=== PATIENT | female | born 1935 | race Caucasian/White ===

== ENCOUNTER 2019-07-21 17:44 | Observation (INO) | payer MEDICARE, OTHER, SELFPAY ==
[2019-07-21] VITALS (9 sets, daily range): BP systolic 122–152; BP diastolic 60–80; PULSE 73–95; RESP 18–20; TEMP 36.4–37; O2SAT 88–97; BMI 53.1
--- NOTE | 2019-07-21 17:45 | XR_ITS ---
WS: [id number] PORTABLE CHEST HISTORY: sob COMPARISON: 11/29/2017 Increased consolidation at the LEFT lung base. Pleural thickening and scarring has been noted on prio r studies. Minimal blunting of the LEFT costophrenic angle. Cardiac size: Heart size appears enlarged but similar to the prior study. Mediastinum/Aorta: Hiatal hernia best seen on the prior studies. No osseous abnormality seen. XR/XR chest 1V portable [id number] IMPRESSION: Stable pleural blunting or pleural thickening at the LEFT costophrenic angle wi th atelectasis. No interval change since 11/29/2017.
--- NOTE | 2019-07-21 18:27 | PC.NURSE ---
PLACED ON 02 NC 2 LPM, NON PRODUCTIVE COUGH
[2019-07-21 18:41] LABS: Basophils # 0.1 10^3/uL (0.0-0.1); Basophils % 1.2 %; Eosinophils # 0.5 10^3/uL (0.0-0.8); Eosinophils % 5.2 %; Hematocrit 26.1 % (37.0-47.0); Lymphocytes # 1.9 10^3/uL (0.8-4.8); Mean Corpuscular HGB Conc 24.9 g/dL (30.0-36.0); Mean Corpuscular Hemoglobin 17.9 pg (28.0-34.0); Mean Corpuscular Volume 71.7 fL (81-99); Mean Platelet Volume 11.1 fL (7.4-10.4); Monocytes % 11.1 %; Neutrophils # 5.5 10^3/uL (1.8-7.7); Neutrophils % 61.1 %; Nucleated Red Blood Cells % 0.3 %; Platelet Count 287 10^3/cmm (130-400); Red Blood Count 3.64 10^6/uL (4.1-5.3); Red Cell Distribution Width 18.6 % (12.1-15.1); White Blood Count 9.1 10^3/uL (4.0-10.0)
[2019-07-21 18:53] LABS: Hemoglobin 6.5 g/dL (11.5-15.3)
--- NOTE | 2019-07-21 19:01 | PC.NURSE ---
REPORT GIVEN TO KAREN MCFARLANE
[2019-07-21 19:02] LABS: Troponin(5th) Baseline 21 ng/mL (0-10)
[2019-07-21 19:10] LABS: Alanine Aminotransferase 6 U/L (0-33); Albumin Level 3.7 g/dL (3.5-5.2); Alkaline Phosphatase 61 IU/L (35-105); Anion Gap 13.4 (5-19); Aspartate Amino Transferase 19 U/L (0-32); Blood Urea Nitrogen 17 mg/dL (8-23); Calcium 8.4 mg/dL (8.5-10.5); Carbon Dioxide 29 mmol/L (22-29); Chloride 102 mmol/L (98-107); Globulin 2.9 g/dL (1.3-4.6); Glucose 128 mg/dL (65-115); NT Pro B Type Natriuretic Pept 755 pg/mL (0-450); Osmolality Calculated 288 mOsm/kg (285-295); Potassium 4.4 mmol/L (3.5-5.1); Sodium 140 mmol/L (136-145); Total Bilirubin 0.3 mg/dL (0.15-1.2); Total Protein 6.6 g/dL (6.6-8.7)
--- NOTE | 2019-07-21 19:24 | PC.NURSE ---
Assumed Pt. care. Pt. without complaint. Without distress. VSS.
--- NOTE | 2019-07-21 19:28 | PM.HP ---
Providers/Chief Complaint Primary Care Provider: HIM Provider Chief Complaint: sent by dr ivan for transfusion History of Present Illness Nenita Salomon is a 83 year old female who does not have significant past medical history comes in with chief complaint of dyspnea on exertion. Patient is stating that for last 2 to 3 weeks she has been experiencing dyspnea, she is experiencing dyspnea mostly on exertion, she is endorsing orthopnea, PND, weight gain, 5 to 10 pound increase in weight, she is attributing weight gain to her eating habits. She does not endorse any night sweats, unintentional weight loss, fever, hemoptysis, black tarry stool, vaginal or fresh bleed per rectum or hematemesis. She does not carry any diagnosis of GI cancer, splenomegaly. About 20 to 25 years ago she had stomach ulcer and biopsy was benign. She does not take NSAIDs or aspirin daily basis. She denies any thyroid abnormality, cold intolerance, constipation, she is stating that her feet are always swollen and she wears compression stockings. She went to her PCP for similar complaint who requested her to come to the ER for further evaluation. Diagnostics in the ER revealed acute onset of anemia hemoglobin 6.5, previous records revealed hemoglobin of 12.7 Microcytic anemia Rectal exam did not reveal occult blood Hemodynamically she is stable Review of Systems Const: Reports: chills, body aches, change in appetite, change in weight and fatigue; Denies: fever(s) Eyes: Denies: change in vision ENMT: Denies: throat pain Card: Reports: swelling of feet/ankles, dyspnea on exertion and orthopnea; Denies: chest pain Resp: Reports: dyspnea GI: Denies: abdominal pain or nausea : Denies: flank pain Musc: Denies: neck pain Skin/Breast: Denies: rash Neuro: Denies: headache(s) Psych: Denies: anxiety Endo: Denies: polyuria Oni/Lymph: Denies: easy bruising All/Imm: Denies: urticaria Medications/Allergies Home Medications Medication Instructions Recorded Confirmed Last Taken Type famotidine [Pepcid] See Rx Instructions .ROUTE 07/21/19 07/21/19 07/19/19 History .COMPLEX PRN Allergies Allergy/AdvReac Type Severity Reaction Status Date / Time No Known Allergies Allergy Verified 07/21/19 18:58 PFSH Acute PFSH: Medical History Cardiomegaly Hiatal hernia Lymphedema Nephrolithiasis Surgical History H/O: hysterectomy History of appendectomy History of carpal tunnel surgery Hx of cholecystectomy S/P knee replacement Family History Denies family history of Hyperlipidemia Lung disease Hypertension Social History Smoking and tobacco status: never smoked Alcohol intake: never Substance/Drug Use: never Household members: family Housing: House Vitals/I&O/Wt Last Vital Signs Temp 98.5 F 07/21/19 18:21 Pulse 80 07/21/19 18:58 Resp 18 07/21/19 18:58 BP 140/65 07/21/19 18:58 Pulse Ox 95 07/21/19 18:58 Weight last 48 hrs Weight 140.614 kg Physical Exam Narrative: EXAM NARRATIVE: Head to toe examination Morbidly obese female Sitting comfortable in her bed Conjunctival pallor positive No active restaurant distress Breathing comfortably, mild crackles at the base of lung however no active wheezing S1, S2, active signs of heart failure Hard to assess her JVD Bilateral lower extremity nonpitting edema Abdomen soft nontender, nondistended, unable to palpate for organomegaly, bowel sound present Appropriate mood and affect GCS 15 Neurologically nonfocal exam Pertinent negative Rectal exam negative for occult blood Data : 07/21/19 18:22 07/21/19 18:22 A&P Assessment and plan (1) New onset of congestive heart failure: Status: Acute (2) Dyspnea on minimal exertion: Status: Acute (3) Microcytic anemia: Status: Acute (4) Morbid obesity: Status: Acute Additional A&P Information Acute microcytic anemia with unknown etiology No organomegaly, no active GI bleed, no source of active blood loss We will check iron panel, B12 level, TSH, Charles test, reticulocyte count Start iron supplementation because of microcytic anemia, no thrombocytopenia or leukopenia noted Transfuse 3 PRBC Patient does endorse a history of stomach ulcer in the past, biopsy was benign as per the patient She will most likely need outpatient EGD and colonoscopy on elective basis New onset CHF most likely due to underlying sleep apnea and active anemia Echo in the morning Would use Lasix 20 mg to avoid decreasing her blood pressure too much because of active anemia Follow-up with TSH No active murmur, no ischemic or infarctive changes, troponin 21 Morbid obesity Patient is attributing her weight gain to excessive eating Counseled on benefits of appropriate BMI Full code DVT prophylaxis: SCDs, would avoid using anticoagulation because of active anemia Cardiac diet Attestations Medical Necessity Statement*: Anticipating discharge in less than 48 hours currently need hospital stay for blood transfusion and management of CHF new onset Time Spent in Patient Care: 50 Coding Level of Care Code Acute 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
--- NOTE | 2019-07-21 19:43 | ED_ITS ---
HPI - SOB/Dyspnea General: Chief Complaint: Shortness of Breath/Dyspnea Stated Complaint: sent by dr ivan for transfusion Time Seen by Provider: 07/21/19 17:56 History of Present Illness: HPI Narrative: Nenita is a very nice 83-year-old female who comes in complaining of dyspnea on exertion. She has an occasional cough but states this is not bothersome. Denies any fevers or chills. She denies any chest pain. She states even the most minimal exertion makes her symptoms worse. She denies any leg pain or swelling. Denies any blood in her stools or black tarry stools. She denies any nausea vomiting or abdominal pain. Associated symptoms: Deny abdominal pain, chest congestion, chest pain, diaphoresis, dizziness, extremity pain, fever(s), hemoptysis, lightheadedness, nausea, orthopnea, palpitations, polydipsia, polyuria, syncope or vomiting Review of Systems Const: Denies: fever(s), chills, body aches, fatigue, malaise, night sweats or diaphoresis Eyes: Denies: change in vision, blurry vision or blind spots ENMT: Denies: throat pain, odynophagia, hoarseness, ear or mastoid pain, ear discharge, change in hearing or nasal discharge Card: Denies: chest pain, palpitations, irregular heart rhythm, lightheadedness, syncope, pre-syncope, dyspnea on exertion or orthopnea Resp: Reports: dyspnea; Denies: productive cough, non-productive cough, wheezing, hemoptysis or chest congestion GI: Denies: abdominal pain, nausea, vomiting, hematemesis, coffee ground emesis, heartburn, diarrhea, constipation, GI cramping, hematochezia or melena : Denies: flank pain, dysuria, urinary frequency, urinary urgency, oliguria, urinary incontinence or hematuria Musc: Denies: neck pain, back pain, extremity pain, extremity swelling, joint pain, joint swelling, joint redness, joint warmth or joint stiffness Skin/Breast: Denies: rash, pruritus, erythema, skin tenderness or jaundice Neuro: Denies: headache(s), numbness in extremities, weakness in extremities, sensory changes, lack of coordination, difficulty walking, dizziness, vertigo, confusion or Slurred speech present Endo: Denies: polyuria, polydipsia, tired all the time, cold intolerance, excessive sweating, flushing, hot flashes or heat intolerance Oni/Lymph: Denies: easy bruising, easy bleeding, petechiae, purpura or enlarged lymph nodes All/Imm: Denies: urticaria, throat swelling, tongue swelling, facial swelling or acute wheezing PFSH ED PFSH: Medical History Cardiomegaly Hiatal hernia Lymphedema Nephrolithiasis Surgical History H/O: hysterectomy History of appendectomy History of carpal tunnel surgery Hx of cholecystectomy S/P knee replacement Family History Denies family history of Hyperlipidemia Lung disease Hypertension Social History Smoking and tobacco status: never smoked Alcohol intake: never Substance/Drug Use: never Household members: family Housing: House Physical Exam Const: COMMON NORMALS: no acute distress, patient oriented x3, no limitations, healthy appearing and well nourished EXAM LIMITATIONS: no altered mental status GENERAL APPEARANCE: cooperative, well kempt and well developed HENMT: COMMON NORMALS: normocephalic, atraumatic, hearing grossly normal bilaterally, external ears normal, EAC's normal, Normal external nose present and moist oral mucous membranes HEAD & SCALP: normal to inspection, normocephalic and atraumatic FACE & SINUS: normal facial exam and face symmetric NOSE: Normal external nose present and Normal nares present EXTERNAL EAR: Yes external ears normal EXTERNAL AUDITORY CANAL: EAC's normal MOUTH: Normal oral and palatal mucosa present, lip normal and tongue normal Eye: COMMON NORMALS: Equal, round and reactive pupils present, EOMs intact bilaterally, conjunctivae normal and no scleral icterus GENERAL EYE: appearance normal, both eyes and all related structures ALIGNMENT: Yes alignment normal PERIORBITAL: periorbital findings normal EYELID: eyelids normal CONJUNCTIVA: Yes conjunctivae normal SCLERA: sclerae normal PUPIL: Yes Equal, round and reactive pupils present Neck/C-Spine: COMMON NORMALS: full ROM, no lymphadenopathy, supple, no meningeal signs and no JVD GENERAL: Yes normal visual inspection and Yes trachea midline CERVICAL SPINE: Yes cervical ROM normal Chest: COMMONS NORMALS: normal inspection of the chest and normal palpation of entire chest wall Resp: COMMON NORMALS: normal respiratory effort, No retractions, No use of ac cessory muscles and clear to auscultation bilaterally EFFORT & INSPECTION: Yes able to speak in complete sentences AUSCULTATION: clear to auscultation bilaterally, no crackles, no rales, no rhonchi and no wheezes Cardio: COMMON NORMALS: no JVD, regular rate, regular rhythm, S1 normal heart sound present, S2 normal heart sound present, No gallops present (Cardio), No clicks present (Cardio), No murmurs present (Cardio) and No rub (Cardio) RATE: regular rate RHYTHM: regular rhythm HEART SOUNDS: S1 normal heart sound present, S2 normal heart sound present, no click, no gallops, no murmurs and no rubs GI: COMMON NORMALS: Soft to palpation, non-tender, No hepatosplenomegaly present and no masses PALPATION: Yes Soft to palpation, No Tenderness to palpation present (GI), No Guarding due to palpation present (GI), No Rigid due to palpation, Yes No hepatosplenomegaly present, No Hernia present, No Palpable mass present and No Pulsatile mass present RECTAL EXAM: normal sphincter tone and heme negative stool : COMMON NORMALS: Yes no CVA tenderness BLADDER/KIDNEY EXAM: Yes no CVA tenderness EXTERNAL FEMALE EXAM: No Hernia present Back/Pelvis: COMMON NORMALS: no CVA tenderness, thoracic and lumbar spine normal to inspection, no thoracic nor lumbar tenderness and thoraco-lumbar ROM normal Extremity: COMMON NORMALS: normal to inspection, full ROM, capillary refill normal, no joint enlargement, no clubbing, cyanosis or edema and no calf tenderness Neuro: COMMON NORMALS: patient oriented x3, CN's II-XII intact bilaterally, moves all extremities, no focal motor deficits and no sensory deficits noted MENINGEAL SIGNS: Yes no meningeal signs SPEECH: speech normal Psych: COMMON NORMALS: mental status grossly normal, Normal thought process present, cooperative, normal affect, speech normal and activity/motor behavior normal APPEARANCE: Yes well kempt SPEECH: Yes normal speech THOUGHT PROCESS: Normal thought process present Skin: COMMON NORMALS: no rashes or lesions noted, turgor normal, no jaundice, no petechiae and no mottling GENERAL SKIN EXAM: no rashes or lesions noted and turgor normal Course Vital Signs: Vital signs: Vital Signs Temperature 98.5 F 07/21/19 18:21 Pulse Rate 78 07/21/19 20:40 Respiratory Rate 18 07/21/19 20:40 Blood Pressure 145/73 07/21/19 20:40 Pulse Oximetry 96 07/21/19 20:40 MDM - SOB/Dyspnea MDM Narrative: Medical decision making narrative: Ms. Bourgeois is a nice 83-year-old female who comes in with dyspnea on exertion. She is found to be anemic with a hemoglobin of 6.5. I think this is the likely etiology for this. She is Hemoccult negative here. She will need further anemia work-up. The case was reviewed with Dr. Vizcarra and he will evaluate further on the inpatient basis. He agrees with transfusion at this time. Lab Data: Attestation: I reviewed the patient's lab results. Labs: Lab Results 07/21/19 07/21/19 07/21/19 Range/Units 18:22 18:22 18:22 WBC 9.1 (4.0-10.0) 10^3/ uL RBC 3.64 L (4.1-5.3) 10^6/u L Hgb 6.5 L* (11.5-15.3) g/dL Hct 26.1 L (37.0-47.0) % MCV 71.7 L (81-99) fL MCH 17.9 L (28.0-34.0) pg MCHC 24.9 L (30.0-36.0) g/dL RDW 18.6 H (12.1-15.1) % Plt Count 287 (130-400) 10^3/c mm MPV 11.1 H (7.4-10.4) fL Neut % (Auto) 61.1 % Lymph % (Auto) 21.0 % Whiteside % (Auto) 11.1 % Eos % (Auto) 5.2 % Baso % (Auto) 1.2 % Neut # (Auto) 5.5 (1.8-7.7) 10^3/u L Lymph # (Auto) 1.9 (0.8-4.8) 10^3/u L Whiteside # (Auto) 1.0 H (0.2-0.9) 10^3/u L Eos # (Auto) 0.5 (0.0-0.8) 10^3/u L Baso # (Auto) 0.1 (0.0-0.1) 10^3/u L Nucleated RBC % (a uto) 0.3 % Nucleated RBCs # 0.0 /100WBC PT 14.50 H (10.5-13.3) SECO NDS INR 1.10 (0.8-1.2) Sodium 140 (136-145) mmol/L Potassium 4.4 (3.5-5.1) mmol/L Chloride 102 (98-107) mmol/L Carbon Dioxide 29 (22-29) mmol/L Anion Gap 13.4 (5-19) BUN 17 (8-23) mg/dL Creatinine 0.5 (0.5-0.9) mg/dL Glucose 128 H (65-115) mg/dL Calculated Osmolal ity 288 (285-295) mOsm/k g Calcium 8.4 L (8.5-10.5) mg/dL Total Bilirubin 0.3 (0.15-1.2) mg/dL AST 19 (0-32) U/L ALT 6 (0-33) U/L Alkaline Phosphata se 61 (35-105) IU/L Troponin T Baselin e (0-10) ng/mL NT-Pro-B Natriuret Pep 755 H (0-450) pg/mL Total Protein 6.6 (6.6-8.7) g/dL Albumin 3.7 (3.5-5.2) g/dL Globulin 2.9 (1.3-4.6) g/dL Blood Type Rho(D) Type Antibody Screen Crossmatch 07/21/19 07/21/19 Range/Units 18:22 18:27 WBC (4.0-10.0) 10^3/ uL RBC (4.1-5.3) 10^6/u L Hgb (11.5-15.3) g/dL Hct (37.0-47.0) % MCV (81-99) fL MCH (28.0-34.0) pg MCHC (30.0-36.0) g/dL RDW (12.1-15.1) % Plt Count (130-400) 10^3/c mm MPV (7.4-10.4) fL Neut % (Auto) % Lymph % (Auto) % Whiteside % (Auto) % Eos % (Auto) % Baso % (Auto) % Neut # (Auto) (1.8-7.7) 10^3/u L Lymph # (Auto) (0.8-4.8) 10^3/u L Whiteside # (Auto) (0.2-0.9) 10^3/u L Eos # (Auto) (0.0-0.8) 10^3/u L Baso # (Auto) (0.0-0.1) 10^3/u L Nucleated RBC % (a uto) % Nucleated RBCs # /100WBC PT (10.5-13.3) SECO NDS INR (0.8-1.2) Sodium (136-145) mmol/L Potassium (3.5-5.1) mmol/L Chloride (98-107) mmol/L Carbon Dioxide (22-29) mmol/L Anion Gap (5-19) BUN (8-23) mg/dL Creatinine (0.5-0.9) mg/dL Glucose (65-115) mg/dL Calculated Osmolal ity (285-295) mOsm/k g Calcium (8.5-10.5) mg/dL Total Bilirubin (0.15-1.2) mg/dL AST (0-32) U/L ALT (0-33) U/L Alkaline Phosphata se (35-105) IU/L Troponin T Baselin e 21 H (0-10) ng/mL NT-Pro-B Natriuret Pep (0-450) pg/mL Total Protein (6.6-8.7) g/dL Albumin (3.5-5.2) g/dL Globulin (1.3-4.6) g/dL Blood Type O Positive Rho(D) Type Positive Antibody Screen Negative Crossmatch See Detail Imaging Data^: CXR: My impression: Cardiomegaly with possible left-sided pleural effusion EKG Data^: EKG 1: Attestation: I personally reviewed and interpreted this EKG as follows: EKG Interpretation Date: 07/21/19 EKG interpretation time: 18:23 Interpretation: Normal sinus rhythm at 79 beats a minute, incomplete right bundle branch block, normal intervals, no acute ST or T wave changes. Discharge Plan Discharge Patient Disposition: Placed in Observation Admit Provider: Srini Vizcarra Clinical Impression: Microcytic anemia, Dyspnea on minimal exertion, Elevation of cardiac enzymes Condition: Stable Referrals: [facility] [Other] Discharge Date/Time: 07/21/19 20:47 Coding Level of Care Code ED Records Management Assistant for Chg Fwd Exam Comprehensive
--- NOTE | 2019-07-21 19:45 | ECG_ITS ---
Measurements Intervals [place] Rate: 79 P: 106 NM: 148 QRS: 20 QRSD: 106 T: 29 QT: 396 QTc: 455 SINUS RHYTHM INCOMPLETE RIGHT BUNDLE BRANCH BLOCK [90+ ms QRS DURATION, TERMINAL R IN V1/V2, 40+ ms S IN I/aVL/V4/V5/V6] No previous ECG available for comparison Electronically Signed On 07-21-2019 22:07:54 CDT by Lisa Dickson M.D. [email or web address]
[2019-07-21 20:12] LABS: Troponin 5 2HR 19.31 ng/mL (0-10)
[2019-07-21 20:14] LABS: Troponin 5 2HR Delta -1.69 ABS# (0-10)
[2019-07-21] MEDS: sodium chloride 0.9% (100 ml) 100 ML (21:57)
[2019-07-21] MEDS: pantoprazole DR 40 mg Tablet PO (22:01)
[2019-07-21 22:02] LABS: Thyroid Stimulating Hormone 1.89 uIU/mL (0.27-4.20)
[2019-07-21 22:46] LABS: Ferritin 5 ng/mL (15-150); Iron 12 ug/dL (37-145)
[2019-07-21 23:01] LABS: Vitamin B12 555 pg/mL (232-1245)
[2019-07-21 23:26] LABS: Lactate Dehydrogenase 333 U/L (135-214); Percent Saturation 2.4 % (20-50); Total Iron Binding Capacity 484 mcg/dl; Unsaturated Iron Binding 472 ug/dL (112-347)
--- NOTE | 2019-07-21 23:45 | ECG_ITS ---
Measurements Intervals [place] Rate: 79 P: 96 NC: 149 QRS: 12 QRSD: 105 T: 30 QT: 385 QTc: 443 SINUS RHYTHM INCOMPLETE RIGHT BUNDLE BRANCH BLOCK [90+ ms QRS DURATION, TERMINAL R IN V1/V2, 40+ ms S IN I/aVL/V4/V5/V6] No previous ECG available for comparison Electronically Signed On 07-21-2019 22:08:17 CDT by Lisa Dickson M.D. [email or web address]
[2019-07-22] VITALS (14 sets, daily range): BP systolic 122–144; BP diastolic 68–84; PULSE 72–97; RESP 16–20; TEMP 36.6–36.9; O2SAT 18–98
[2019-07-22] MEDS: FUROsemide 10 mg/mL SDV 4mL 40 MG IVP ×2 (00:20→09:39)
[2019-07-22 05:50] LABS: Basophils # 0.1 10^3/uL (0.0-0.1); Basophils % 1.5 %; Eosinophils # 0.4 10^3/uL (0.0-0.8); Eosinophils % 4.7 %; Hematocrit 26.8 % (37.0-47.0); Hemoglobin 6.9 g/dL (11.5-15.3); Lymphocytes # 1.6 10^3/uL (0.8-4.8); Lymphocytes % 17.7 %; Mean Corpuscular HGB Conc 25.7 g/dL (30.0-36.0); Mean Corpuscular Hemoglobin 18.9 pg (28.0-34.0); Mean Corpuscular Volume 73.2 fL (81-99); Mean Platelet Volume 11.5 fL (7.4-10.4); Monocytes # 1.2 10^3/uL (0.2-0.9); Monocytes % 13.4 %; Neutrophils # 5.5 10^3/uL (1.8-7.7); Nucleated Red Blood Cells % 0.4 %; Platelet Count 251 10^3/cmm (130-400); Red Blood Count 3.66 10^6/uL (4.1-5.3); Red Cell Distribution Width 19.7 % (12.1-15.1); White Blood Count 8.9 10^3/uL (4.0-10.0)
[2019-07-22 06:10] LABS: Anion Gap 11.5 (5-19); Blood Urea Nitrogen 17 mg/dL (8-23); Calcium 8.3 mg/dL (8.5-10.5); Carbon Dioxide 32 mmol/L (22-29); Chloride 102 mmol/L (98-107); Glucose 120 mg/dL (65-115); Osmolality Calculated 290 mOsm/kg (285-295); Potassium 4.5 mmol/L (3.5-5.1); Sodium 141 mmol/L (136-145)
[2019-07-22 06:12] LABS: Slide Review Slide Review Perform
--- NOTE | 2019-07-22 07:00 | USCV_ITS ---
Salomon [place] Age: 83 Gender: F : 1935 Exam Date: 07/22/2019 06:47 Ordering Phys: Srini Vizcarra MD Technologist: Duane Weston Exam Location: [facility] – [place] Indication: CHF BP: 132 / 75 HR: 74 Rhythm: Sinus Technical Quality: Suboptimal MEASUREMENTS (Male / Female) Normal Values 2D ECHO LV Diastolic Diameter PLAX 4.5 cm 4.2 - 5.9 / 3.9 - 5.3 cm LV Systolic Diameter PLAX 3.0 cm IVS Diastolic Thickness 1.0 cm 0.6 - 1.0 / 0.6 - 0.9 cm IVS Systolic Thickness 1.2 cm LVPW Diastolic Thickness 1.5 cm 0.6 - 1.0 / 0.6 - 0.9 cm LVPW Systolic Thickness 1.5 cm LVOT Diameter 2.0 cm LV Ejection Fraction 2D Teich 63.0 % LV Ejection Fraction MOD 2C 60.6 % LV Ejection Fraction 2C AL 60.5 % LA Diameter 5.3 cm LA Width 4.5 cm LA Height 6.1 cm Aorta at Sinotubular Diameter 3.1 cm M-MODE LV Diastolic Diameter MM 4.6 cm 4.2 - 5.9 / 3.9 - 5.3 cm LV Systolic Diameter MM 3.5 cm LV Ejection Fraction MM Teich 47.8 % IVS Diastolic Thickness MM 1.2 cm 0.6 - 1.0 / 0.6 - 0.9 cm IVS Systolic Thickness MM 1.8 cm LVPW Diastolic Thickness MM 1.3 cm 0.6 - 1.0 / 0.6 - 0.9 cm LVPW Systolic Thickness MM 1.8 cm RV Diastolic Diameter MM 2.8 cm Aortic Annulus Diameter 3.3 cm LA Ao Ratio MM 1.6 MV E Point Septal Separation 0.8 cm DOPPLER AV Peak Velocity 177.0 cm/s LVOT Peak Velocity 111.0 cm/s AV Area Cont Eq vti 2.0 cm squared AV Area Cont Eq pk 2.0 cm squared MV Area PHT 5.0 cm squared Mitral E to A Ratio 1.0 MV E' Velocity 10.0 cm/s Mitral E to MV E' Ratio 10.2 Mitral E to LV E' Lateral Ratio 10.7 Mitral E to LV E' Septal Ratio 9.7 TR Peak Velocity 176.0 cm/s TR Peak Gradient 12.4 mmHg TV Peak E Velocity 90.0 cm/s Right Atrial Pressure 3.0 mmHg Pulmonary Artery Systolic Pressu 15.4 mmHg PV Peak Velocity 118.0 cm/s FINDINGS Left Ventricle Normal left ventricular size, systolic function and wall thickness, with no regional wall motion abnormalities. Grade II/IV diastolic dysfunction, moderately elevated filling pressures. Left ventricular ejection fraction is estimated at 65 %. Right Ventricle Normal right ventricular size and systolic function. Normal right ventricular systolic pressure. Right Atrium Moderately increased right atrial size. Left Atrium Moderately increased left atrial size. Mitral Valve Structurally normal mitral valve. Mild mitral valve regurgitation. Aortic Valve Structurally normal aortic valve without significant sclerosis or stenosis. There is no aortic regurgitation. Tricuspid Valve Structurally normal tricuspid valve. Pulmonic Valve Pulmonic valve not well visualized. Pericardium Normal pericardium without effusion. Aorta Normal ascending aorta dimension. CONCLUSIONS Normal left ventricular size, systolic function and wall thickness, with no regional wall motion abnormalities. Grade II/IV diastolic dysfunction, moderately elevated filling pressures. Left ventricular ejection fraction is estimated at 65 %. Moderately increased right atrial size. Moderately increased left atrial size. Structurally normal mitral valve. Mild mitral valve regurgitation. There are no prior echocardiogram studies to compare. Dr. Dalton Pereyra MD (Electronically Signed) Final Date: 22 Jul 2019 09:23 S
[2019-07-22] MEDS: iron polysaccharide complex 150 mg Capsule PO (09:39)
[2019-07-22] MEDS: sodium chloride 0.9% (100 ml) 100 ML 50 ML (09:39)
--- NOTE | 2019-07-22 10:34 | PC.CHAP ---
Pastoral Care Encounter/Spiritual Assessment Type of Contact [] Declined rn field case manager visit [] Patient/Family/Request visit [] Outpatient visit [] Follow-up visit [] Physician referral [] Code/Alert [x] Routine visit [] Staff referral [] Actively dying [] Patient sleeping [] Family support [] [] Out of room [] Palliative care [] [x] Receiving care in room [] Pre-surgical visit [] Trauma [] Long length of stay [] ICU visit [] Other: Relational/Emotional Strength [] Patient feels connected with others/family/visitors/staff [] Distress [] Loneliness/isolation [] Abandonment Spirituality of Patient [] Person of Thelma [] Attends Anglican of their Thelma [] Believes in Prayer [] Reads Bible or Restorationist materials [] There are Spiritual issues to be addressed Wwe Wrestler Interventions [] Prayer [] Active listening [] Non-anxious presence [] Spiritual/emotional support [] Crisis/trauma care [] Spiritual counseling [] Bereavement support [] Provided bereavement packet [] Provided Bible/devotional materials [] Provided toy/stuffed animal, coloring book to patient or family member [] Provided Communion [] Anointing/[place] [] Salvation [x] Completed spiritual assessment [] Other: Impact on Illness or Injury [] Angry [] Fearful [] Anxious [] Often cries [] Exhaustion [] Unable to work [] Unable to attend spiritism [] Unable to walk/stand [] Unable to read [] Unable to drive [] Unable to eat/drink [] Unable to sleep [] Unable to be with family [] Patient intubated [] Other: Summary Time spent with patient
[2019-07-22 14:59] LABS: Hematocrit 30.4 % (37.0-47.0); Hemoglobin 8.3 g/dL (11.5-15.3)
--- NOTE | 2019-07-22 15:17 | P.DS_ITS ---
Discharge Providers Date of Admission: 07/21/19 19:30 Date of Discharge: July 22, 2019 Attending Provider at Admission: Srini Vizcarra MD Attending Provider at Discharge: Yobani Bose MD Primary Care Provider: LINETTE Provider Diagnoses at Discharge Discharge Diagnosis (1) New onset of congestive heart failure: Status: Acute Problem details: On room air. Reports her extremity edema is chronic. Will initiate Lasix 20 mg on discharge. (2) Dyspnea on minimal exertion: Status: Acute (3) Microcytic anemia: Status: Acute Problem details: Transfused 2 units of packed red blood cells while in the hospital. Discharge hemoglobin is 8.3 (4) Morbid obesity: Status: Acute Reason for Visit Reason for Visit: Reason For Visit: sent by dr ivan for transfusion Hospital Course Hospital Course: Nenita is an 83-year-old white female presenting to the hospital with dyspnea on exertion, referred by her primary care provider for significantly low hemoglobin. She was also short of breath and exam was concerning for congestive heart failure. Stool Hemoccult in the emergency department was negative. Further studies indicated significant iron deficiency anemia. Initial hemoglobin 6.5. She was diuresed. She was transfused 2 units of packed red blood cells. An echocardiogram was performed which demonstrated diastolic dysfunction, normal EF, no significant valvular abnormalities. Following transfusion she felt much improved. She was able to ambulate a short distance without significant shortness of breath. She reported she has some chronic shortness of breath which is currently at baseline. She was discharged home, for further follow-up with her primary care provider regarding her anemia. Hemoglobin following transfusion was 8.3. Physical Exam Narrative: EXAM NARRATIVE: General exam no apparent distress Cardiovascular regular rate and rhythm without murmur Lungs clear Abdomen is soft with positive bowel sounds Extremities 1+ edema bilaterally Discharge Data Data Completed and Pending: Completed Studies During Hospitalization Category Date Time Status XR chest 1V quirino ble 23153 Urgent Exams 07/21/19 17:45 Completed CV echo complete* [id number] Routine Ultrasound 07/22/19 07:00 Completed Pending at discharge Category Date Time Status Immunochemical Fe karl OCB Routine Lab 07/21/19 21:30 Uncollected Labs from last 24 hours 07/22/19 07/22/19 07/22/19 14:50 05: 05:20 WBC 8.9 RBC 3.66 L Hgb 8.3 L 6.9 L Hct 30.4 L 26.8 L MCV 73.2 L MCH 18.9 L MCHC 25.7 L RDW 19.7 H Plt Count 251 MPV 11.5 H Neut % (Auto) 62.0 Lymph % (Auto) 17.7 Lawrence % (Auto) 13.4 Eos % (Auto) 4.7 Baso % (Auto) 1.5 Reticulocyte % (Au to) Neut # (Auto) 5.5 Lymph # (Auto) 1.6 Lawrence # (Auto) 1.2 H Eos # (Auto) 0.4 Baso # (Auto) 0.1 Nucleated RBC % (a uto) 0.4 Nucleated RBCs # 0.0 PT INR Sodium 141 Potassium 4.5 Chloride 102 Carbon Dioxide 32 H Anion Gap 11.5 BUN 17 Creatinine 0.5 Glucose 120 H Calculated Osmolal ity 290 Calcium 8.3 L Iron TIBC % Saturation Unsat Iron Binding Ferritin Total Bilirubin AST ALT Alkaline Phosphata se Lactate Dehydrogen ase Troponin T Baselin e Troponin T 120 Min [place] Delta Troponin T NT-Pro-B Natriuret Pep Total Protein Albumin Globulin Vitamin B12 TSH Blood Type Rho(D) Type Antibody Screen TONY, Poly Interpre t Crossmatch 07/21/19 07/21/19 07/21/19 19:47 19:47 18:27 WBC RBC Hgb Hct MCV MCH MCHC RDW Plt Count MPV Neut % (Auto) Lymph % (Auto) Lawrence % (Auto) Eos % (Auto) Baso % (Auto) Reticulocyte % (Au to) Neut # (Auto) Lymph # (Auto) Lawrence # (Auto) Eos # (Auto) Baso # (Auto) Nucleated RBC % (a uto) Nucleated RBCs # PT INR Sodium Potassium Chloride Carbon Dioxide Anion Gap BUN Creatinine Glucose Calculated Osmolal ity Calcium Iron 12 L TIBC 484 % Saturation 2.4 L Unsat Iron Binding 472 H Ferritin 5 L Total Bilirubin AST ALT Alkaline Phosphata se Lactate Dehydrogen ase 333 H Troponin T Baselin e Troponin T 120 Min point hope ira 19.31 H Delta Troponin T -1.69 L NT-Pro-B Natriuret Pep Total Protein Albumin Globulin Vitamin B12 555 TSH 1.89 Blood Type Rho(D) Type Antibody Screen TONY, Poly Interpre t Negative Crossmatch 07/21/19 07/21/19 07/21/19 18:27 18:22 18:22 WBC RBC Hgb Hct MCV MCH MCHC RDW Plt Count MPV Neut % (Auto) Lymph % (Auto) Lawrence % (Auto) Eos % (Auto) Baso % (Auto) Reticulocyte % (Au to) 2.1400 Neut # (Auto) Lymph # (Auto) Lawrence # (Auto) Eos # (Auto) Baso # (Auto) Nucleated RBC % (a uto) Nucleated RBCs # PT INR Sodium Potassium Chloride Carbon Dioxide Anion Gap BUN Creatinine Glucose Calculated Osmolal ity Calcium Iron TIBC % Saturation Unsat Iron Binding Ferritin Total Bilirubin AST ALT Alkaline Phosphata se Lactate Dehydrogen ase Troponin T Baselin e 21 H Troponin T 120 Min point hope ira Delta Troponin T NT-Pro-B Natriuret Pep Total Protein Albumin Globulin Vitamin B12 TSH Blood Type O Positive Rho(D) Type Positive Antibody Screen Negative TONY, Poly Interpre t Crossmatch See Detail 07/21/19 07/21/19 07/21/19 18:22 18:22 18:22 WBC 9.1 RBC 3.64 L Hgb 6.5 L* Hct 26.1 L MCV 71.7 L MCH 17.9 L MCHC 24.9 L RDW 18.6 H Plt Count 287 MPV 11.1 H Neut % (Auto) 61.1 Lymph % (Auto) 21.0 Lawrence % (Auto) 11.1 Eos % (Auto) 5.2 Baso % (Auto) 1.2 Reticulocyte % (Au to) Neut # (Auto) 5.5 Lymph # (Auto) 1.9 Lawrence # (Auto) 1.0 H Eos # (Auto) 0.5 Baso # (Auto) 0.1 Nucleated RBC % (a uto) 0.3 Nucleated RBCs # 0.0 PT 14.50 H INR 1.10 Sodium 140 Potassium 4.4 Chloride 102 Carbon Dioxide 29 Anion Gap 13.4 BUN 17 Creatinine 0.5 Glucose 128 H Calculated Osmolal ity 288 Calcium 8.4 L Iron TIBC % Saturation Unsat Iron Binding Ferritin Total Bilirubin 0.3 AST 19 ALT 6 Alkaline Phosphata se 61 Lactate Dehydrogen ase Troponin T Baselin e Troponin T 120 Min point [place]a Delta Troponin T NT-Pro-B Natriuret Pep 755 H Total Protein 6.6 Albumin 3.7 Globulin 2.9 Vitamin B12 TSH Blood Type Rho(D) Type Antibody Screen TONY, Poly Interpre t Crossmatch Vitals: Last Vital Signs Temp 98.0 F 07/22/19 12:30 Pulse 80 07/22/19 12:30 Resp 16 07/22/19 12:30 BP 132/72 07/22/19 12:30 Pulse Ox 95 07/22/19 12:30 Discharge Plan Discharge Patient Disposition: Home, Self-Care Condition: Stable Prescriptions: New furosemide [Lasix] 20 mg tablet 20 mg PO QAM Qty: 30 RF: 0 polysaccharide iron complex [Ferrex 150] 150 mg iron Capsule 150 mg PO DAILY Qty: 30 RF: 0 pantoprazole 40 mg Tablet,Delayed Release (Dr/Ec) 40 mg PO BID Qty: 60 RF: 0 Discontinued Pepcid 40 mg Tablet See Rx Instructions .ROUTE .COMPLEX PRN (Reason: STOMACH ISSUES) RF: 0 Discharge Orders: Discharge Order (Routine); Ordered 07/22/19 Ordered By: Yobani Bose Referrals: [facility] [Other] Estuardo Ivan MD [Physician] - 4-7 days Discharge Diet: Low Salt Discharge Activity: Increase activity as tolerated Activity Restrictions/Additional Instructions: Take all medicine as prescribed Follow-up 5 days with CBC and clinic visit with Dr. Ivan. Consideration of EGD and colonoscopy Discharge Attestations Time Spent in Discharge Care*: greater than 30 min Quality Metrics Clinical Quality Measures During this hospital stay, did patient experience: None Coding Level of Care Code Acute Lead Ios Developer for Corey Fwd Diagnoses New onset of congestive heart failure I50.9 Dyspnea on minimal exertion R06.00 Microcytic anemia D50.9 Morbid obesity E66.01
--- NOTE | 2019-07-22 16:52 | PC.NURSE ---
Discharge instructions reviewed with patient at this time. Patient verbalized understanding of follow up appointment. Patient is A&Ox3. Respirations even and non-labored on room air. IV removed intact. Patient wheel chaired to private car.
== END 2019-07-22 16:35 | disposition home or self-care (01) ==
LOC: ER 19:45 → MEDSURG 20:17
PROVIDERS: Emergency Medicine; Admitting Provider Internal Medicine; Emergency Provider Emergency Medicine; Visit Provider Internal Medicine
DX: I50.9 Heart failure, unspecified (principal); R06.00 Dyspnea, unspecified; D50.9 Iron deficiency anemia, unspecified; E66.01 Morbid (severe) obesity due to excess calories; Z68.43 Body mass index [BMI] 50.0-59.9, adult
CPT/HCPCS: 12345; 36415; 36430; 71045; 80048; 80053; 82607; 82728; 83540; 83550; 83615; 83880; 84443; 84484; 85014; 85018; 85025; 85045; 85610; 86850; 86880; 86900; 86920; 93005; 93306; 96375; 99283; 99285; G0378; J1940; P9016

== ENCOUNTER 2019-07-27 12:41 | Inpatient (IN) | payer MEDICARE, OTHER, SELFPAY ==
[2019-07-27] VITALS (28 sets, daily range): BP systolic 94–140; BP diastolic 56–77; PULSE 53–92; RESP 9–27; TEMP 36.7–36.9; O2SAT 81–100; BMI 51.5
--- NOTE | 2019-07-27 12:45 | XR_ITS ---
WS: [id number] XR chest 1V portable [id number] REASON FOR EXAM: sob FINDINGS: Alveolar infiltrate in the basilar portion of the right lower lung. There is cardiomegaly seen. There is no failure or pneumonia are pneumothorax. XR/XR chest 1V portable [id number] IMPRESSION: Nodular infiltrate right lung base Cardiomegaly
--- NOTE | 2019-07-27 12:45 | ECG_ITS ---
Measurements Intervals [place] Rate: 78 P: 102 MN: 155 QRS: -35 QRSD: 106 T: 28 QT: 375 QTc: 427 SINUS RHYTHM INDETERMINATE AXIS LOW QRS VOLTAGE IN PRECORDIAL LEADS [QRS DEFLECTION < 1.0 mV IN CHEST LEADS] INCOMPLETE RIGHT BUNDLE BRANCH BLOCK [90+ ms QRS DURATION, TERMINAL R IN V1/V2, 40+ ms S IN I/aVL/V4/V5/V6] POSSIBLE ANTERIOR MYOCARDIAL INFARCTION [30 ms Q WAVE IN V3/V4, OR R < 0.2 mV IN V4], OF INDETERMINATE AGE WARNING: DATA QUALITY MAY AFFECT INTERPRETATION Compared to ECG 07/27/2019 14:36:28 Indeterminate axis now present Left-axis deviation no longer present Myocardial infarct finding still present Electronically Signed On 07-28-2019 19:36:15 CDT by Srini Mata M.D. [email or web address]
--- NOTE | 2019-07-27 13:23 | ED_ITS ---
HPI - SOB/Dyspnea General: Chief Complaint: Shortness of Breath/Dyspnea Stated Complaint: abnormal labs Time Seen by Provider: 07/27/19 13:05 Source: patient Mode of arrival: ambulatory Limitations: no limitations History of Present Illness: HPI Narrative: 83-year-old female who was recently admitted for CHF exacerbation. Patient was discharged and followed up with Dr. Lara today. I spoke to Dr. Pedraza patient was very short of breath in his office was satting in the 70s. She is not on oxygen at home and was in the low 80s here on 2 L and had to increase her oxygen here. She states she has had worsening shortness of breath and weight gain since discharge. Patient was placed on furosemide. She denies any vomiting or diarrhea. Associated symptoms: Deny abdominal pain, chest pain, fever(s), nausea or vomiting Review of Systems Const: Denies: fever(s), chills, body aches or change in appetite Eyes: Denies: blurry vision or eye discomfort ENMT: Denies: throat pain or dental pain Card: Denies: chest pain Resp: Reports: dyspnea GI: Denies: abdominal pain, nausea, vomiting or diarrhea : Denies: dysuria Musc: Denies: neck pain or back pain Skin/Breast: Denies: rash Neuro: Denies: headache(s) Psych: Denies: depression Oni/Lymph: Denies: easy bruising All/Imm: Denies: urticaria PFSH ED PFSH: Medical History (Updated 07/27/19 @ 15:00 by Stefanie Wilkins MD) Cardiomegaly Hiatal hernia Lymphedema Nephrolithiasis Surgical History H/O: hysterectomy History of appendectomy History of carpal tunnel surgery Hx of cholecystectomy S/P knee replacement Family History Denies family history of Hyperlipidemia Lung disease Hypertension Social History Smoking and tobacco status: never smoked Alcohol intake: never Household members: family Housing: House Physical Exam Const: COMMON NORMALS: patient oriented x3 GENERAL APPEARANCE: in distress NUTRITIONAL APPEARANCE: obese HENMT: COMMON NORMALS: normocephalic and atraumatic HEAD & SCALP: normocephalic and atraumatic Eye: COMMON NORMALS: Equal, round and reactive pupils present and EOMs intact bilaterally PUPIL: Yes Equal, round and reactive pupils present Neck/C-Spine: COMMON NORMALS: full ROM and supple Chest: COMMONS NORMALS: normal inspection of the chest and normal palpation of entire chest wall Resp: EFFORT & INSPECTION: Yes tachypneic, Yes respiratory distress and Yes labored AUSCULTATION: rales Cardio: COMMON NORMALS: regular rate, regular rhythm and No murmurs present (Cardio) RATE: regular rate RHYTHM: regular rhythm GI: COMMON NORMALS: Normal to inspection, nondistended, normoactive bowel sounds present, Soft to palpation, non-tender and no masses PALPATION: Yes Soft to palpation Extremity: COMMON NORMALS: normal to inspection and full ROM Neuro: COMMON NORMALS: patient oriented x3, moves all extremities and no focal motor deficits Psych: COMMON NORMALS: mental status grossly normal, Normal thought process present and cooperative THOUGHT PROCESS: Normal thought process present Skin: COMMON NORMALS: no rashes or lesions noted and no wounds GENERAL SKIN EXAM: no rashes or lesions noted Course Vital Signs: Vital signs: Vital Signs Pulse Rate 74 07/27/19 13:48 Respiratory Rate 22 H 07/27/19 13:06 Blood Pressure 134/69 07/27/19 13:06 Pulse Oximetry 97 07/27/19 13:48 MDM - SOB/Dyspnea MDM Narrative: Medical decision making narrative: Patient presents here with CHF exacerbation with possible right lower lobe pneumonia. Patient is in severe distress and was placed on BiPAP. She is improving slightly on BiPAP I spoke to hospitalist and will admit to the ICU. Patient started on antibiotics for her possible pneumonia. She has no signs of sepsis or cardiac cause currently. She has no signs of pulmonary embolism. Lab Data: Labs: Lab Results 07/27/19 07/27/19 07/27/19 Range/Units 13:21 13:40 13:40 WBC 9.8 (4.0-10.0) 10^3/ uL RBC 4.10 (4.1-5.3) 10^6/u L Hgb 7.9 L (11.5-15.3) g/dL Hct 31.8 L (37.0-47.0) % MCV 77.6 L (81-99) fL MCH 19.3 L (28.0-34.0) pg MCHC 24.8 L (30.0-36.0) g/dL RDW 22.5 H (12.1-15.1) % Plt Count 279 (130-400) 10^3/c mm MPV 12.0 H (7.4-10.4) fL Neut % (Auto) 75.4 % Lymph % (Auto) 11.1 % Gregory % (Auto) 10.5 % Eos % (Auto) 1.0 % Baso % (Auto) 1.2 % Neut # (Auto) 7.4 (1.8-7.7) 10^3/u L Lymph # (Auto) 1.1 (0.8-4.8) 10^3/u L Gregory # (Auto) 1.0 H (0.2-0.9) 10^3/u L Eos # (Auto) 0.1 (0.0-0.8) 10^3/u L Baso # (Auto) 0.1 (0.0-0.1) 10^3/u L Nucleated RBC % (a uto) 1.2 % Nucleated RBCs # 0.1 /100WBC PT 15.80 H (10.5-13.3) SECO NDS INR 1.22 H (0.8-1.2) Specimen Type Arterial Sample Site Radial, right ABG pH 7.28 L (7.35-7.45) ABG pCO2 71.3 H* (35-45) mmHg ABG pO2 64.5 L (80.0-100.0) mmH g ABG HCO3 33.6 H (22-26) mmol/L ABG Base Excess 5.7 H (-2.0-2.0) mmol/ L Iban Test Pos Hematocrit 25.6 L (37-47) % Hgb O2 Saturation 88.9 L (95-100) % Carboxyhemoglobin 1.6 (0.4-20.1) %THgb Methemoglobin 0.3 L (0.4-1.5) % Total Hemoglobin 8.4 L (12-16) g/dL O2 Delivery Device Nc O2 Liters/Min 6.0 % FiO2 % Director Field Services ID [email or web address] Sodium (136-145) mmol/L Potassium (3.5-5.1) mmol/L Chloride (98-107) mmol/L Carbon Dioxide (22-29) mmol/L Anion Gap (5-19) BUN (8-23) mg/dL Creatinine (0.5-0.9) mg/dL Glucose (65-115) mg/dL Calculated Osmolal ity (285-295) mOsm/k g Calcium (8.5-10.5) mg/dL Total Bilirubin (0.15-1.2) mg/dL AST (0-32) U/L ALT (0-33) U/L Alkaline Phosphata se (35-105) IU/L Troponin T Baselin e (0-10) ng/mL NT-Pro-B Natriuret Pep (0-450) pg/mL Total Protein (6.6-8.7) g/dL Albumin (3.5-5.2) g/dL Globulin (1.3-4.6) g/dL 07/27/19 07/27/19 07/27/19 Range/Units 13:40 13:40 14:32 WBC (4.0-10.0) 10^3/ uL RBC (4.1-5.3) 10^6/u L Hgb (11.5-15.3) g/dL Hct (37.0-47.0) % MCV (81-99) fL MCH (28.0-34.0) pg MCHC (30.0-36.0) g/dL RDW (12.1-15.1) % Plt Count (130-400) 10^3/c mm MPV (7.4-10.4) fL Neut % (Auto) % Lymph % (Auto) % Gregory % (Auto) % Eos % (Auto) % Baso % (Auto) % Neut # (Auto) (1.8-7.7) 10^3/u L Lymph # (Auto) (0.8-4.8) 10^3/u L Gregory # (Auto) (0.2-0.9) 10^3/u L Eos # (Auto) (0.0-0.8) 10^3/u L Baso # (Auto) (0.0-0.1) 10^3/u L Nucleated RBC % (a uto) % Nucleated RBCs # /100WBC PT (10.5-13.3) SECO NDS INR (0.8-1.2) Specimen Type Arterial Sample Site Radial, left ABG pH 7.33 L (7.35-7.45) ABG pCO2 66.5 H* (35-45) mmHg ABG pO2 52.6 L (80.0-100.0) mmH g ABG HCO3 34.9 H (22-26) mmol/L ABG Base Excess 7.7 H (-2.0-2.0) mmol/ L Iban Test Pos Hematocrit 24.5 L (37-47) % Hgb O2 Saturation (95-100) % Carboxyhemoglobin (0.4-20.1) %THgb Methemoglobin (0.4-1.5) % Total Hemoglobin (12-16) g/dL O2 Delivery Device Bipap O2 Liters/Min % FiO2 40.0 % Director Field Services ID [email or web address] Sodium 140 (136-145) mmol/L Potassium 4.9 (3.5-5.1) mmol/L Chloride 100 (98-107) mmol/L Carbon Dioxide 29 (22-29) mmol/L Anion Gap 15.9 (5-19) BUN 22 (8-23) mg/dL Creatinine 0.6 (0.5-0.9) mg/dL Glucose 135 H (65-115) mg/dL Calculated Osmolal ity 289 (285-295) mOsm/k g Calcium 8.5 (8.5-10.5) mg/dL Total Bilirubin 0.4 (0.15-1.2) mg/dL AST 29 (0-32) U/L ALT 17 (0-33) U/L Alkaline Phosphata se 55 (35-105) IU/L Troponin T Baselin e 41 H (0-10) ng/mL NT-Pro-B Natriuret Pep 9534 H (0-450) pg/mL Total Protein 6.7 (6.6-8.7) g/dL Albumin 3.6 (3.5-5.2) g/dL Globulin 3.1 (1.3-4.6) g/dL Imaging Data^: CXR: Radiologist's impression: [address] [address] XRay Report Signed Patient: Nenita Salomon Unit #: [id number] : 1935 Age/Sex: 83 / F ADM Date: Loc: ER Room/Bed: Attending Dr: Ordering Provider/Ordering MD: Stefanie Wilkins MD Date of Service: 07/27/19 Procedure(s): XR chest 1V portable [id number] Accession Number(s): [id number] Report Number: [id number] WS: [id number] XR chest 1V portable [id number] REASON FOR EXAM: sob FINDINGS: Alveolar infiltrate in the basilar portion of the right lower lung. There is cardiomegaly seen. There is no failure or pneumonia are pneumothorax. XR/XR chest 1V portable [id number] IMPRESSION: Nodular infiltrate right lung base Cardiomegaly EKG Data^: EKG 1: Attestation: I personally reviewed and interpreted this EKG as follows: EKG Interpretation Date: 07/27/19 EKG interpretation time: 13:39 Interpretation: nsr hr [address] or t wave abnormalities qrs 110 qtc 387 EKG 2: Attestation: I personally reviewed and interpreted this EKG as follows: EKG Interpretation Date: 07/27/19 EKG interpretation time: 14:36 Interpretation: nsr hr [address] or t wave abnormalities lad qrs 101 qtc 409 Critical Care Time Critical Care Time: Critical Care Time: Yes Total Critical Care Time: 35 Attestation: This case had a high probability of a clinically significant, sudden, or life threatening deterioration of this patient's condition which required my full and direct attention, intervention and personal management. Discharge Plan Discharge Patient Disposition: Admitted As Inpatient Clinical Impression: Acute respiratory distress Congestive heart failure Qualifiers: Heart failure type: unspecified Heart failure chronicity: acute Qualified Code(s): I50.9 - Heart failure, unspecified Condition: Stable Referrals: Estuardo Lara MD [Primary Care Provider] - Coding Level of Care Code ED Retail Wireless Associate for Chg Fwd Exam Comprehensive
[2019-07-27 13:32] LABS: ABG PH Result 7.28 (7.35-7.45); Arterial Blood Gas Hematocrit 25.6 % (37-47); Base Excess ABG 5.7 mmol/L (-2.0-2.0); Blood Gas Allen Test Pos; Blood Gas Sample Site Radial, right; Blood Gas Sample Type Arterial; Carboxyhemoglobin 1.6 %THgb (0.4-20.1); HCO3 ABG 33.6 mmol/L (22-26); HGB O2 Sat 88.9 % (95-100); Methemoglobin 0.3 % (0.4-1.5); Oxygen Device NC; PO2 ABG 64.5 mmHg (80.0-100.0); Total Hemoglobin 8.4 g/dL (12-16)
[2019-07-27 13:55] LABS: Basophils # 0.1 10^3/uL (0.0-0.1); Basophils % 1.2 %; Eosinophils # 0.1 10^3/uL (0.0-0.8); Hematocrit 31.8 % (37.0-47.0); Hemoglobin 7.9 g/dL (11.5-15.3); Lymphocytes # 1.1 10^3/uL (0.8-4.8); Lymphocytes % 11.1 %; Mean Corpuscular HGB Conc 24.8 g/dL (30.0-36.0); Mean Corpuscular Hemoglobin 19.3 pg (28.0-34.0); Mean Corpuscular Volume 77.6 fL (81-99); Monocytes % 10.5 %; Neutrophils # 7.4 10^3/uL (1.8-7.7); Neutrophils % 75.4 %; Nucleated Red Blood Cells # 0.1 /100WBC; Nucleated Red Blood Cells % 1.2 %; Platelet Count 279 10^3/cmm (130-400); Red Cell Distribution Width 22.5 % (12.1-15.1); White Blood Count 9.8 10^3/uL (4.0-10.0)
[2019-07-27 14:15] LABS: Troponin(5th) Baseline 41 ng/mL (0-10)
[2019-07-27 14:18] LABS: INR 1.22 (0.8-1.2)
[2019-07-27 14:23] LABS: Alanine Aminotransferase 17 U/L (0-33); Albumin Level 3.6 g/dL (3.5-5.2); Alkaline Phosphatase 55 IU/L (35-105); Anion Gap 15.9 (5-19); Aspartate Amino Transferase 29 U/L (0-32); Blood Urea Nitrogen 22 mg/dL (8-23); Calcium 8.5 mg/dL (8.5-10.5); Carbon Dioxide 29 mmol/L (22-29); Chloride 100 mmol/L (98-107); Globulin 3.1 g/dL (1.3-4.6); Glucose 135 mg/dL (65-115); NT Pro B Type Natriuretic Pept 9534 pg/mL (0-450); Osmolality Calculated 289 mOsm/kg (285-295); Potassium 4.9 mmol/L (3.5-5.1); Sodium 140 mmol/L (136-145); Total Bilirubin 0.4 mg/dL (0.15-1.2); Total Protein 6.7 g/dL (6.6-8.7)
[2019-07-27 14:43] LABS: ABG PH Result 7.33 (7.35-7.45); Arterial Blood Gas Hematocrit 24.5 % (37-47); Base Excess ABG 7.7 mmol/L (-2.0-2.0); Blood Gas Allen Test Pos; Blood Gas Sample Site Radial, left; Blood Gas Sample Type Arterial; HCO3 ABG 34.9 mmol/L (22-26); Oxygen Device BIPAP; PO2 ABG 52.6 mmHg (80.0-100.0)
[2019-07-27 14:45] LABS: ABG PCO2 66.5 mmHg (35-45)
--- NOTE | 2019-07-27 14:45 | ECG_ITS ---
Measurements Intervals [place] Rate: 68 P: 93 HI: 144 QRS: -68 QRSD: 101 T: 5 QT: 391 QTc: 418 SINUS RHYTHM WITH OCCASIONAL ECTOPIC PREMATURE COMPLEXES LEFT AXIS DEVIATION [QRS AXIS < -30] LOW QRS VOLTAGE IN PRECORDIAL LEADS [QRS DEFLECTION < 1.0 mV IN CHEST LEADS] INCOMPLETE RIGHT BUNDLE BRANCH BLOCK [90+ ms QRS DURATION, TERMINAL R IN V1/V2, 40+ ms S IN I/aVL/V4/V5/V6] POSSIBLE ANTERIOR MYOCARDIAL INFARCTION , OF INDETERMINATE AGE [30 ms Q WAVE IN V3/V4, OR R < 0.2 mV IN V4] Compared to ECG 07/21/2019 19:52:36 Left-axis deviation now present Low QRS voltage now present Myocardial infarct finding now present Electronically Signed On 07-27-2019 17:08:17 CDT by Dalton Pereyra M.D. [email or web address]
[2019-07-27 14:46] LABS: ABG PCO2 71.3 mmHg (35-45)
[2019-07-27] MEDS: vancomycin 1,000 MG in sodium chloride 0.9% 250 ML 250 MG IV ×2 (15:21→20:54)
[2019-07-27] MEDS: FUROsemide 10 mg/mL SDV 4mL 40 MG IVP (15:27)
[2019-07-27] MEDS: piperacillin-tazobactam 3.375 GM in sodium chloride 0.9% (plus) 50 ML IV ×2 (17:21→23:39)
--- NOTE | 2019-07-27 17:53 | P.HP_ITS ---
Providers/Chief Complaint Admitting Physician: Harsh Leary Primary Care Provider: Estuardo Lara MD Chief Complaint: abnormal labs History of Present Illness Nenita Salomon is a 83 year old female with congestive heart failure, cardiomegaly, handle hernia, lymphedema, nephrolithiasis was discharged from the hospital on 07/21 after admission for management of acute anemia, with iron deficiency, as well as CHF exacerbation, noted with normal EF. She received blood transfusion, was treated with diuretics, and reportedly was feeling better at the time of discharge. She is not normally on oxygen. I do see that during admission she was needing around 2 L. She is noted with morbid obesity, although denies having history of KATHIE diagnosis, or using CPAP at home. At the time of my visit she is somnolent, and difficult to arouse, however, after short time does arouse to loud voice, sternal rub. She is oriented x3. She knows why she is in the hospital, able to provide history, although overall is somnolent. In ER she is noted with hypercapnic, hypoxic respiratory failure, with CO2 initially of 71.3, but with improvement after starting on BiPAP down to 66.5. PO2 64.5, 52.6. With respect acidosis, pH 7.28, with improvement to 7.33. She is noted with nodular infiltrate in the right lower lobe with concern for pneumonia for which she started on antibiotics. She denies any chest pain. She has some intermittent cough productive of small amount of green sputum. Is not coughing up blood. She is afebrile. With normal renal function BNP is found elevated at 9534 compared to 755 during last admission. First troponin is mildly elevated at 41. Per she has been somnolent for several weeks. She may have some apneic episodes from what he has observed. He denies that she is ever had a sleep study. She has not been complaining of chest pain. reports occasional cough after eating. Review of Systems Const: Reports: change in sleep pattern, daytime sleepiness and other (apneic episodes); Denies: fever(s), chills, body aches or malaise Eyes: Denies: change in vision or eye redness ENMT: Denies: throat pain, oral sores or ear or mastoid pain Card: Reports: edema; Denies: chest pain, pre-syncope or dyspnea on exertion Resp: Reports: dyspnea, productive cough and change in phlegm color; Denies: hemoptysis GI: Denies: abdominal pain, nausea, vomiting, diarrhea, constipation, hem atochezia or melena : Denies: flank pain, urinary frequency or hematuria Musc: Denies: back pain, joint swelling or joint redness Skin/Breast: Denies: rash, sores or new lesions Neuro: Denies: headache(s), numbness in extremities, weakness in extremities, dizziness, confusion or seizure-like activity Endo: Denies: polyuria or polydipsia Oni/Lymph: Denies: easy bleeding or purpura All/Imm: Denies: urticaria, throat swelling or tongue swelling Medications/Allergies Home Medications Medication Instructions Recorded Confirmed Last Taken Type furosemide [Lasix] 20 mg PO QAM #30 tab 07/22/19 07/27/19 07/27/19 Rx pantoprazole 40 mg PO BID #60 tab 07/22/19 07/27/19 07/27/19 Rx polysaccharide iron complex 150 mg PO DAILY #30 cap 07/22/19 07/27/19 07/27/19 Rx [Ferrex 150] albuterol sulfate 1 puff INHALATION Q6H PRN 07/27/19 07/27/19 Unknown History ascorbic acid (vitamin C) [Vitamin 500 mg PO DAILY 07/27/19 07/27/19 Unknown H istory C] Allergies Allergy/AdvReac Type Severity Reaction Status Date / Time erythromycin base Allergy ALGY-Rash Verified 07/27/19 13:12 Latex, Natural Rubber Allergy ALGY-Rash Verified 07/27/19 13:12 PFSH Acute PFSH: Medical History (Updated 07/27/19 @ 18:48 by Harsh Leary MD) Cardiomegaly Congestive heart failure Hiatal hernia Lymphedema Morbid obesity Nephrolithiasis Surgical History H/O: hysterectomy History of appendectomy History of carpal tunnel surgery Hx of cholecystectomy S/P knee replacement Family History (Updated 07/27/19 @ 18:45 by Harsh Leary MD) Father CAD (coronary artery disease) Denies family history of Hyperlipidemia Lung disease Hypertension Social History (Updated 07/27/19 @ 18:45 by Harsh Leary MD) Smoking and tobacco status: never smoked Alcohol intake: never Household members: family Housing: House Marital status: Vitals/I&O/Wt Last Vital Signs Temp 98.4 F 07/27/19 16:28 Pulse 70 07/27/19 17:30 Resp 14 07/27/19 17:30 BP 137/72 07/27/19 17:30 Pulse Ox 100 07/27/19 17:30 07/27/19 07/27/19 07/27/19 06:59 14:59 22:59 Intake Total 250 / 250 Balance 250 / 250 Weight last 48 hrs Weight 140.614 kg Physical Exam Const: COMMON NORMALS: no acute distress and patient oriented x3 GENERAL APPEARANCE: lethargic NUTRITIONAL APPEARANCE: obese morbidly obese ORIENTATION/CONSCIOUSNESS: not confused HENMT: COMMON NORMALS: oropharynx normal Neck/C-Spine: COMMON NORMALS: no JVD Resp: COMMON NORMALS: normal respiratory effort AUSCULTATION: diminished lung sounds Cardio: COMMON NORMALS: regular rhythm, S1 normal heart sound present, S2 normal heart sound present and No murmurs present (Cardio) RHYTHM: regular rhythm HEART SOUNDS: S1 normal heart sound present and S2 normal heart sound present OTHER: Unable to assess JVD GI: COMMON NORMALS: Normal to inspection, nondistended, normoactive bowel sounds present, Soft to palpation and non-tender PALPATION: Yes Soft to palpation Extremity: COMMON NORMALS: no joint enlargement OTHER: Thick legs with large amount of nonpitting edema, difficult to assess but also at least 2+ pitting edema Neuro: COMMON NORMALS: patient oriented x3 and moves all extremities Skin: COMMON NORMALS: no rashes or lesions noted GENERAL SKIN EXAM: no rashes or lesions noted Data : 07/27/19 13:40 07/27/19 13:40 Micro: Microbiology 07/27/19 13:40 Blood Culture - Preliminary Blood SPECIMEN COLLECTED 07/27/19 13:35 Blood Culture - Preliminary Blood SPECIMEN COLLECTED A&P Assessment and plan (1) Acute respiratory failure: Hypoxic and hypercapnic respiratory failure, with respiratory acidosis, with hypercapnic encephalopathy, she is lethargic, although this appears to also be exacerbated by suspected sleep apnea, with reporting occasional episodes of apnea at home, as well as high suspicion for obesity hypoventilation syndrome. Initially with improvement with BiPAP in ER. With noted pneumonia right lower lobe, possibly aspiration, given episodes of lethargy during the day. Started on Zosyn, vancomycin. Received a dose of Lasix for acute exacerbation of chronic diastolic CHF. At this time continue monitoring in ICU, BiPAP support, continue antibiotics, diuretics. is agreeable with continue trial of BiPAP. Understands, however, that if worsening intubation may be unavoidable. Discussed with after she recovers would benefit from sleep study. Would benefit from pulmonology assessment regarding obesity hypoventilation syndrome. Would benefit from weight loss options. At this time she switch back to AVAPS. Her saturation has been actually high, 100%, despite decreasing of oxygen. Discussed with respiratory therapy, will try to decrease again, as not formally diagnosed, but with cough, productive of greenish sputum, concern as perhaps also some underlying COPD. With overly high oxygenation levels possibly contributing to hypoxia. Discussed also with for spine appears to be mildly elevated, perhaps slightly more than last time at 41, however, without chest pain, and with respiratory failure suspect this is demand ischemia. With recent microcytic anemia, off-and-on daily clear etiology, although I see Hemoccult was negative at bedside, at this time will add lower dose heparin for DVT prophylaxis due to concern for acute blood loss anemia with the iron deficiency, monitor for changes in hemoglobin. Maintain SCD. Low threshold to discontinue pharmacotherapy. She denies chest pain, has had no hemoptysis, no unilateral swelling, has no tachycardia. At this time suspicion for PE is low, although low threshold to escalate investigation. Given recent anemia requiring transfusion, iron deficiency, anticoagulation may be risky in case PE/DVT were a concern. Status: Acute (2) Acute encephalopathy: This is suspected to be secondary to acute hypercapnic respiratory failure, compounded by sleep apnea, suspected obesity hypoventilation syndrome. TSH was checked during last admission, will recheck due to large amount of nonpitting edema, daytime sleepiness, although overall suspicion is lower for hypothyroidism/myxedema. On review of her medications does not appear to have any narcotics, benzos, or other medication should necessarily contribute, however, I do see in her history listed trospium, perhaps due to urinary incontinence. Overall it does not appear in anticholinergic failure, however, will also assess if is not retaining urine, Place La catheter due to encephalopathy, as well as for measurement of accurate I&O's. Obtain UA to rule out UTI contributing. More somnolent earlier, although now appears to be waking up again, requesting for diet to be restarted. For now would recommend maintain n.p.o., perhaps with some intermittent sips/chips due to tenuous mental status, respiratory status. Status: Acute (3) Pneumonia: Right lower lobe. Cannot exclude that this is not aspiration, thus at this time will continue Zosyn, vancomycin due to her recent hospitalization also. Obtain sputum cultures if possible. Urine antigen. Check rapid flu. She has been afebrile. She has only minimal cough. She was not assessed during the pr ior hospitalization, however, COVID-19 suspicion has been low. Status: Acute (4) Congestive heart failure: In the setting of normal renal function BNP is elevated at 9534 compared to last admission 755. She does not report significant orthopnea, however, does appear to have peripheral swelling. JVD cannot be assessed. Was diagnosed with diastolic dysfunction last time. Received diuresis. Does appear to require around 2 L oxygen, although does not appear was discharged with oxygen at home. At this time we will continue Lasix, 40 mg every 12 hours. Monitor I&O. Place La. Follow troponin, EKG series, although does not appear to have active ischemia based on preliminary studies. Status: Acute Qualifiers: Heart failure chronicity: acute Heart failure type: unspecified Qualified Code(s): I50.9 - Heart failure, unspecified (5) Respiratory acidosis: Secondary to acute hypercapnic respiratory failure. Status: Acute (6) Morbid obesity: BMI 51.6. Discussed with would benefit from discussing weight loss options with PCP in office. Status: Acute (7) Microcytic anemia: Recently requiring 2 units PRBC transfusion last week. Unclear source of anemia. Does have iron deficiency. Bedside Hemoccult reported was negative. Monitor hemoglobin closely, currently 7.9, close to discharge value. Continue PPI. For now will transition to the twice daily as were keeping n.p.o. with only some occasional sips due to changes in mental status, requirement for BiPAP. For now we will only give lower dose heparin for DVT prophylaxis. Low threshold discontinue. Status: Acute Additional A&P Information Abnormal troponin: Troponin related 41. Follow-up series. Suspected mismatch demand supply secondary to respiratory failure. Abnormal INR: 1.22. Previously appears closer to normal at 1.1. Entirely clear reason. Is not on anticoagulation. Perhaps some dietary deficiency. Liver parameters otherwise unremarkable. Sodium, platelets appear to be unremarkable. At this time liver cirrhosis is not suspected, will follow-up INR in the morning. Follow liver parameters. Attestations Medical Necessity Statement*: Admission of over 2 midnights is going to be needed for assessment management of acute respiratory failure with hypoxia and hypercapnia, and neck encephalopathy, pneumonia, CHF exacerbation, with nikia pected additional underlying undiagnosed comorbidities including KATHIE, possibly OHS, in the setting of recent acute microcytic anemia. Critical Care Time: In addition to noncritical issues 25 minutes critical care time spent on this management of respiratory failure, encephalopathy, underlying conditions including pneumonia, CHF, in the setting of other chronic morbidities including morbid obesity, suspicion of KATHIE, OHS, other underlying conditions, modifications to respiratory support, antibiotic, diuretic therapy, assessment for other issues, discussion with speech therapy, nursing staff. Coding Level of Care Code Acute Cat [employer]inner for [employer] [facility] Diagnoses Acute respiratory failure J96.00 Acute encephalopathy G93.40 Pneumonia J18.9 Congestive heart failure I50.9 Heart failure chronicity: acute Heart failure type: unspecified Respiratory acidosis E87.2 Morbid obesity E66.01 Microcytic anemia D50.9
--- NOTE | 2019-07-27 18:45 | ECG_ITS ---
Measurements Intervals [place] Rate: 85 P: 85 SC: 142 QRS: 270 QRSD: 110 T: 1 QT: 344 QTc: 411 SINUS RHYTHM WITH SINUS ARRHYTHMIA INDETERMINATE AXIS LOW QRS VOLTAGE IN PRECORDIAL LEADS [QRS DEFLECTION < 1.0 mV IN CHEST LEADS] INCOMPLETE RIGHT BUNDLE BRANCH BLOCK [90+ ms QRS DURATION, TERMINAL R IN V1/V2, 40+ ms S IN I/aVL/V4/V5/V6] POSSIBLE ANTERIOR MYOCARDIAL INFARCTION , OF INDETERMINATE AGE [30 ms Q WAVE IN V3/V4, OR R < 0.2 mV IN V4] Compared to ECG 07/21/2019 19:52:36 Indeterminate axis now present Low QRS voltage now present Myocardial infarct finding now present Electronically Signed On 07-27-2019 17:08:04 CDT by Dalton Pereyra M.D. [email or web address]
[2019-07-27 18:52] LABS: Add Urine Microscopic? NO
[2019-07-27] MEDS: heparin 5,000 unit/mL INJ 1 mL 5000 UNIT SUBCUT (18:57)
[2019-07-27 19:12] LABS: Bilirubin Urine Neg (NEGATIVE); Blood Urine Neg (Negative); Glucose Urine UA Norm (Normal); Ketones Urine Negative (Negative); Leukocyte Esterase Urine Negative (Negative); Nitrate Urine Negative (Negative); Protein Urine Neg (Negative); Urine Appearance Clear (CLEAR); Urine Color Straw (Yellow); Urobilinogen Urine Norm (Negative); pH Urine 5 (5-7)
[2019-07-27 19:23] LABS: Troponin 5 2HR 39.86 ng/mL (0-10)
[2019-07-27 19:36] LABS: Thyroid Stimulating Hormone 2.76 uIU/mL (0.27-4.20)
[2019-07-27] MEDS: ipratropium-albuterol 3 mL Neb INHALATION (20:01)
--- NOTE | 2019-07-27 20:14 | PC.PHAR ---
Pharmacokinetic dosing service Date: 07/27/19 Time: 1999 Objective: Patient: Nenita Salomon Floor: ICU-3 Age: 83 yo Serum creatinine: 0.6 mg/dL Height: 65.0 Inches Weight (kg): 140.614 Diagnosis: Relevant medical/social history: Cultures and sensitivities: Other labs: Assessment: IBW (kg): 57.00 Dosing wt(kg): 140.614 Estimated Creatinine clearance (ml/min): 65.0 CRCL method: Cockcroft and Gault using ibw(default). Drug selected: Vancomycin Loading dose (mg): 0 Vd (liters): 126.6 (factor used: 0.9 L/kg) [place]ade (hr-1): 0.058 Half life (hrs): 11.95 Recommended dose: 2000 mg Interval: 18 hrs Infusion time (hrs): 1.5 Predicted peak (mcg/mL): 23.4 Predicted trough (mcg/mL): 8.99 Total body weight is being used for vancomycin dosing. Renal function is stable [ ] /unstable [ ] Recommendations: Give Vancomycin 2000 mg q 18 hrs with an expected Cpeak of 23.4 mcg/ml and an expected Ctrough of 8.99 mcg/ml Renal dosing of other antibiotics (review renal dosing of other medications and list guidelines here): Thank you for the consult, will continue to follow. Signature: Renea Card [facility]
[2019-07-27 20:40] LABS: Troponin 5 6HR 38.45 ng/mL (0-10)
[2019-07-27] MEDS: pantoprazole 40 mg SDV IVP (20:55)
[2019-07-27 21:02] LABS: Troponin 5 6HR Delta -2.55 ng/L (0-12)
[2019-07-27 21:02] LABS: ABG PCO2 58.1 mmHg (35-45); ABG PH Result 7.41 (7.35-7.45); Alveolar-Arterial Oxygen Gradi 55.2 mmHg (5-10); Arterial Blood Gas Hematocrit 22.9 % (37-47); Base Excess ABG 10.6 mmol/L (-2.0-2.0); Blood Gas Allen Test Pos; Blood Gas Sample Site Radial, right; Blood Gas Sample Type Arterial; Blood Gas Tidal Volume 0.5; Carboxyhemoglobin 1.4 %THgb (0.4-20.1); HCO3 ABG 36.5 mmol/L (22-26); HGB O2 Sat 96.1 % (95-100); Ionized Calcium Level - ABG 1.1 mmol/L (1.1-1.4); Methemoglobin 0.5 % (0.4-1.5); Oxygen Device BIPAP; Oxygen Saturation ABG 97.9; Potassium Level - ABG 3.9 mmol/L (3.5-5.0); Total Hemoglobin 7.5 g/dL (12-16)
[2019-07-27 21:26] LABS: Troponin 5 2HR Delta -1.14 ABS# (0-10)
[2019-07-28] VITALS (17 sets, daily range): BP systolic 90–139; BP diastolic 49–68; PULSE 54–81; RESP 10–32; TEMP 36.3–36.9; O2SAT 92–98; BMI 58.3
[2019-07-28] MEDS: ipratropium-albuterol 3 mL Neb INHALATION ×4 (03:05→22:04)
[2019-07-28] MEDS: FUROsemide 10 mg/mL SDV 4mL 40 MG IVP ×2 (03:10→14:04)
[2019-07-28 05:29] LABS: Basophils # 0.1 10^3/uL (0.0-0.1); Basophils % 1.2 %; Eosinophils # 0.3 10^3/uL (0.0-0.8); Eosinophils % 3.5 %; Hematocrit 30.2 % (37.0-47.0); Hemoglobin 7.7 g/dL (11.5-15.3); Lymphocytes # 1.4 10^3/uL (0.8-4.8); Lymphocytes % 14.7 %; Mean Corpuscular HGB Conc 25.5 g/dL (30.0-36.0); Mean Corpuscular Hemoglobin 19.5 pg (28.0-34.0); Mean Corpuscular Volume 76.6 fL (81-99); Mean Platelet Volume 11.7 fL (7.4-10.4); Monocytes # 1.3 10^3/uL (0.2-0.9); Neutrophils # 6.5 10^3/uL (1.8-7.7); Neutrophils % 66.8 %; Nucleated Red Blood Cells # 0.1 /100WBC; Nucleated Red Blood Cells % 0.5 %; Platelet Count 230 10^3/cmm (130-400); Red Blood Count 3.94 10^6/uL (4.1-5.3); Red Cell Distribution Width 22.6 % (12.1-15.1); White Blood Count 9.7 10^3/uL (4.0-10.0)
[2019-07-28 05:35] LABS: INR 1.23 (0.8-1.2)
[2019-07-28 05:51] LABS: Alanine Aminotransferase 16 U/L (0-33); Albumin Level 3.5 g/dL (3.5-5.2); Alkaline Phosphatase 47 IU/L (35-105); Anion Gap 11.1 (5-19); Aspartate Amino Transferase 25 U/L (0-32); Blood Urea Nitrogen 21 mg/dL (8-23); Calcium 8.9 mg/dL (8.5-10.5); Carbon Dioxide 36 mmol/L (22-29); Chloride 98 mmol/L (98-107); Globulin 2.9 g/dL (1.3-4.6); Glucose 118 mg/dL (65-115); Osmolality Calculated 290 mOsm/kg (285-295); Potassium 4.1 mmol/L (3.5-5.1); Sodium 141 mmol/L (136-145); Total Bilirubin 0.6 mg/dL (0.15-1.2); Total Protein 6.4 g/dL (6.6-8.7)
--- NOTE | 2019-07-28 06:00 | XR_ITS ---
WS: [id number] XR chest 1V portable [id number] REASON FOR EXAM: Hypoxia FINDINGS: Gross cardiomegaly is seen the heart shows arteriosclerotic changes. Infiltrate is seen in the right lung base. The hilum and apices normal. XR/XR chest 1V portable [id number] IMPRESSION: Gross cardiomegaly Infiltrate right lower lung base. Arteriosclerotic changes.
[2019-07-28] MEDS: heparin 5,000 unit/mL INJ 1 mL 5000 UNIT SUBCUT ×2 (06:12→17:50)
[2019-07-28] MEDS: pantoprazole 40 mg SDV IVP (06:15)
[2019-07-28 06:40] LABS: Slide Review Slide Review Perform
[2019-07-28] MEDS: piperacillin-tazobactam 3.375 GM in sodium chloride 0.9% (plus) 50 ML IV ×2 (06:43→17:47)
--- NOTE | 2019-07-28 08:56 | P.PN_ITS ---
Subjective Subjective: Interval history: She states she is feeling much better. She was very happy to start ice chips and water this morning after coming off BiPAP. Has no chest pain or pressure. Vitals/I&O/Wt Last Vital Signs Temp 97.4 F L 07/28/19 05:14 Pulse 71 07/28/19 08:47 Resp 19 H 07/28/19 08:47 BP 139/62 07/28/19 04:00 Pulse Ox 97 07/28/19 08:47 07/27/19 07/28/19 07/28/19 22:59 06:59 14:59 Intake Total 300 / 300 50 / 350 Output Total 1000 / 1000 Balance 300 / 300 -950 / -650 Weight last 48 hrs Weight 149.413 kg Weight 140.614 kg Physical Exam Const: COMMON NORMALS: no acute distress and patient oriented x3 GENERAL APPEARANCE: lethargic NUTRITIONAL APPEARANCE: obese morbidly obese ORIENTATION/CONSCIOUSNESS: Yes lethargic; not confused HENMT: COMMON NORMALS: oropharynx normal Resp: COMMON NORMALS: normal respiratory effort AUSCULTATION: diminished lung sounds Cardio: COMMON NORMALS: regular rhythm, S1 normal heart sound present, S2 normal heart sound present and No murmurs present (Cardio) RHYTHM: regular rhythm HEART SOUNDS: S1 normal heart sound present and S2 normal heart sound present OTHER: Unable to assess JVD GI: COMMON NORMALS: Normal to inspection, nondistended, normoactive bowel sounds present, Soft to palpation and non-tender PALPATION: Yes Soft to palpation Extremity: COMMON NORMALS: no joint enlargement OTHER: Thick legs with large amount of nonpitting edema, difficult to assess but also at least 2+ pitting edema Neuro: COMMON NORMALS: patient oriented x3 and moves all extremities SENSORIUM/ORIENTATION: Yes lethargic Skin: COMMON NORMALS: no rashes or lesions noted GENERAL SKIN EXAM: no rashes or lesions noted Urinary Catheter Management^: La: Cath Placed During This Visit: yes Reason for Continuing Indwelling Catheter: Accurate Measurement of Urinary Output in Critically Ill Patients Urinary Catheter Date of Insertion: 07/27/19 Urinary Catheter Time of Insertion: 18:40 Data : 07/28/19 04:32 07/28/19 04:32 Micro: Microbiology 07/27/19 13:40 Blood Culture - Preliminary Blood SPECIMEN COLLECTED 07/27/19 13:35 Blood Culture - Preliminary Blood SPECIMEN COLLECTED A&P Assessment and plan (1) Acute respiratory failure: Multifactorial respiratory failure. With some improvement overnight. Able to wean down off BiPAP down to 3 L nasal cannula. She herself reports she is feeling better. Mental status is definitely significantly improved. She is awake, alert, answering questions. Attempted to discuss with her regarding concern for possible additional underlying pulmonary disease given hypercapnia, possibly undiagnosed COPD, pos sibly KATHIE, possibly OHS, however, she is not particularly interested in listening at this time. Discussed with her has noted that she intermittently is not breathing effectively while sleeping, to which she replies he thinks he is a doctor and he is a little paranoid. . Discussed with her respiratory failure as well as hypercapnic encephalopathy she was noted to be having yesterday, need for BiPAP support, and concerned that she may end up requiring intubation, to which she replied you are all a little paranoid , subsequently agreeing, however, that additional assessment to begin with PFT, sleep study, and possibly pulmonology in office would be beneficial and she will think about it. She states that she has had previously a nasal fracture, and nose intermittently gets tender at the bridge. Discussed with her she would want to mention this information during the time of sleep study as it may affect the type of mask she may be able to wear in case she is found needing CPAP. At this time she is transitioned over to nasal cannula. We will continue monitoring and treatment on medical floor. Continue antibiotics for pneumonia, appears to also perhaps have a degree of bro nchitis as still he is spitting up some greenish phlegm. No formal diagnosis of COPD. Continue to monitor mental status, provide BiPAP support as needed. Continue Lasix for CHF exacerbation. With recent microcytic anemia. Maintain SCD. Low-dose heparin. Low threshold to discontinue pharmacotherapy. She denies chest pain, has had no hemoptysis, no unilateral swelling, has no tachycardia. At this time suspicion for PE is low, although low threshold to escalate investigation. Given recent anemia requiring transfusion, iron deficiency, anticoagulation may be risky in case PE/DVT were a concern. Status: Acute (2) Acute encephalopathy: Improved. May resume diet. Status: Acute (3) Pneumonia: Right lower lobe. Cannot exclude that this is not aspiration, thus at this time will continue Zosyn, vancomycin due to her recent hospitalization also. Obtain sputum cultures if possible. Urine antigen. Check rapid flu. She has been afebrile. She has only minimal cough. She was not assessed during the prior hospitalization, however, COVID-19 suspicion has been low. Status: Acute (4) Congestive heart failure: In negative balance. Continue Lasix at this time. Monitor I&O, renal function. Status: Acute Qualifiers: Heart failure chronicity: acute Heart failure type: unspecified Qualified Code(s): I50.9 - Heart failure, unspecified (5) Respiratory acidosis: Secondary to acute hypercapnic respiratory failure. Status: Acute (6) Morbid obesity: BMI 51.6. Would benefit from discussing weight loss options with PCP in office. Status: Acute (7) Microcytic anemia: Recently requiring 2 units PRBC transfusion last week. Unclear source of anemia. Does have iron deficiency. Bedside Hemoccult reported was negative. Monitor hemoglobin closely, currently 7.9, close to discharge value. Continue PPI. For now will transition to the twice daily as were keeping n.p.o. with only some occasional sips due to changes in mental status, requirement for BiPAP. For now we will only give lower dose heparin for DVT prophylaxis. Low threshold discontinue. Status: Acute Additional A&P Information Abnormal troponin: Suspected mismatch demand supply secondary to respiratory failure. Abnormal INR: 1.22. Previously appears closer to normal at 1.1. Entirely clear reason. Is not on anticoagulation. Perhaps some dietary deficiency. Liver parameters otherwise unremarkable. Sodium, platelets appear to be unremarkable. Would follow-up with outpatient side. Follow liver parameters. Attestations Medical Necessity Statement*: Continue admission for assessment management of multifactorial acute respiratory failure with hypoxia and hypercapnia. Coding Level of Care Code Acute [employer] for [employer] Diagnoses Acute respiratory failure J96.00 Acute encephalopathy G93.40 Pneumonia J18.9 Congestive heart failure I50.9 Heart failure chronicity: acute Heart failure type: unspecified Respiratory acidosis E87.2 Morbid obesity E66.01 Microcytic anemia D50.9
[2019-07-28] MEDS: pantoprazole DR 40 mg Tablet PO (17:49)
[2019-07-29] VITALS (12 sets, daily range): BP systolic 104–155; BP diastolic 59–76; PULSE 77–91; RESP 16–20; TEMP 36.6–37.1; O2SAT 91–96
[2019-07-29] MEDS: piperacillin-tazobactam 3.375 GM in sodium chloride 0.9% (plus) 50 ML IV ×3 (01:26→19:40)
[2019-07-29] MEDS: ipratropium-albuterol 3 mL Neb INHALATION ×4 (03:04→22:33)
[2019-07-29] MEDS: FUROsemide 10 mg/mL SDV 4mL 40 MG IVP (03:54)
[2019-07-29 04:57] LABS: Basophils # 0.1 10^3/uL (0.0-0.1); Basophils % 0.8 %; Eosinophils # 0.2 10^3/uL (0.0-0.8); Eosinophils % 2.3 %; Hematocrit 29.8 % (37.0-47.0); Hemoglobin 7.6 g/dL (11.5-15.3); Lymphocytes # 1.1 10^3/uL (0.8-4.8); Lymphocytes % 10.3 %; Mean Corpuscular HGB Conc 25.5 g/dL (30.0-36.0); Mean Corpuscular Hemoglobin 19.7 pg (28.0-34.0); Mean Corpuscular Volume 77.2 fL (81-99); Mean Platelet Volume 12.2 fL (7.4-10.4); Monocytes # 1.4 10^3/uL (0.2-0.9); Monocytes % 12.9 %; Neutrophils # 7.6 10^3/uL (1.8-7.7); Neutrophils % 72.8 %; Nucleated Red Blood Cells # 0.1 /100WBC; Nucleated Red Blood Cells % 0.6 %; Platelet Count 233 10^3/cmm (130-400); Red Blood Count 3.86 10^6/uL (4.1-5.3); Red Cell Distribution Width 22.4 % (12.1-15.1); White Blood Count 10.4 10^3/uL (4.0-10.0)
[2019-07-29 05:19] LABS: Alanine Aminotransferase 13 U/L (0-33); Albumin Level 3.2 g/dL (3.5-5.2); Alkaline Phosphatase 48 IU/L (35-105); Anion Gap 15.4 (5-19); Aspartate Amino Transferase 27 U/L (0-32); Blood Urea Nitrogen 23 mg/dL (8-23); Calcium 8.9 mg/dL (8.5-10.5); Carbon Dioxide 34 mmol/L (22-29); Chloride 95 mmol/L (98-107); Globulin 3.4 g/dL (1.3-4.6); Glucose 139 mg/dL (65-115); Osmolality Calculated 289 mOsm/kg (285-295); Potassium 4.4 mmol/L (3.5-5.1); Sodium 140 mmol/L (136-145); Total Bilirubin 0.6 mg/dL (0.15-1.2); Total Protein 6.6 g/dL (6.6-8.7)
[2019-07-29 05:22] LABS: Slide Review Slide Review Perform
[2019-07-29 08:01] LABS: Vancomycin Trough 15.5 ug/mL (10-15)
--- NOTE | 2019-07-29 08:47 | PC.CHAP ---
Pastoral Care Encounter/Spiritual Assessment Type of Contact [] Declined split and drum room supervisor visit [] Patient/Family/Request visit [] Outpatient visit [] Follow-up visit [] Physician referral [] Code/Alert [x] Routine visit [] Staff referral [] Actively dying [] Patient sleeping [] Family support [] [] Out of room [] Palliative care [] [] Receiving care in room [] Pre-surgical visit [] Trauma [] Long length of stay [] ICU visit [] Other: Relational/Emotional Strength [] Patient feels connected with others/family/visitors/staff [] Distress [] Loneliness/isolation [] Abandonment Spirituality of Patient [] Person of Thelma [] Attends Taoist of their Thelma [] Believes in Prayer [] Reads Bible or Worship materials [] There are Spiritual issues to be addressed Tanning Wheel Operator Interventions [x] Prayer [] Active listening [] Non-anxious presence [] Spiritual/emotional support [] Crisis/trauma care [] Spiritual counseling [] Bereavement support [] Provided bereavement packet [] Provided Bible/devotional materials [] Provided toy/stuffed animal, coloring book to patient or family member [] Provided Communion [] Anointing/[place] [] Salvation [x] Completed spiritual assessment [] Other: Impact on Illness or Injury [] Angry [] Fearful [] Anxious [] Often cries [] Exhaustion [] Unable to work [] Unable to attend mormonism [] Unable to walk/stand [] Unable to read [] Unable to drive [] Unable to eat/drink [] Unable to sleep [] Unable to be with family [] Patient intubated [] Other: Summary Visited with patient. Resting well. Time spent with patient 5 min
[2019-07-29] MEDS: heparin 5,000 unit/mL INJ 1 mL 5000 UNIT SUBCUT ×2 (09:03→19:40)
[2019-07-29] MEDS: pantoprazole DR 40 mg Tablet PO ×2 (09:04→17:08)
--- NOTE | 2019-07-29 11:46 | CT_ITS ---
WS: [id number] CT head wo con* [id number] REASON FOR EXAM: lethargy IV CONTRAST ADMINISTERED: None TOTAL EXAM DLP: 1686.[address] scans at [facility] use at least one of these dose optimization techniques: automat ed exposure control; mA and/or kV adjustment per patient size (includes targeted exams where dose is matched to clinical indication); or iterative reconstruction. FINDINGS Boyle and white matter interfaces normal. No evidence of hemorrhage, infarction, or masses. The ventricles are of normal size no paraventricular changes are noted. The marc and cerebellum posterior fossa were normal. The calvarium was normal. C1-C2 normal. The paranasal sinuses are all normal. The orbits optic nerves optive chiasma's and pituitary are all normal. CT/CT head wo con* [id number] Impression: . Normal CT of the brain
[2019-07-29 12:42] LABS: Ammonia 58 umol/L (11-51)
--- NOTE | 2019-07-29 17:37 | PM.PN ---
Subjective Subjective: Interval history: She is overall more alert, and per RN was awake all morning. During my visit sleping, somewhat sluggish, with again some noted asterixis. CT head, ABG and ammonia level were ordered. She was upset reportedly stating is sick of all the blood draws, requesting to take La out and requesting to leave. Discussed that we would like to work with her, and did not have to perform procedures that she does not want to do, realizing that these are attempted for her benefit to better understand her condition and help her, but she does have the right to decline if she does not want something done, or if she wants to leave. Currently encouraged her to stick when she has been agreeable. Discussed also with her . She does get anxious appears, and encouraged them to chat on the phone, or possibly she states her son is happy with computers, so setting up a [id number] video chat may help give her a boost in morale. Her states would like to try to encourage her to continue treatment. Vitals/I&O/Wt Last Vital Signs Temp 98.0 F 07/29/19 16:00 Pulse 78 07/29/19 16:00 Resp 18 07/29/19 16:00 BP 104/59 07/29/19 16:00 Pulse Ox 93 07/29/19 16:00 07/29/19 07/29/19 07/29/19 06:59 14:59 22:59 Intake Total 50 / 1490.000 740 / 740 Output Total 400 / 3050 1825 / 1825 Balance -350 / -1560.000 -1085 / -1085 Weight last 48 hrs Weight 150.547 kg Weight 149.413 kg Physical Exam Const: COMMON NORMALS: no acute distress and patient oriented x3 NUTRITIONAL APPEARANCE: obese morbidly obese ORIENTATION/CONSCIOUSNESS: not confused OTHER: Generally weak. During my visit she is somnolent. Reportedly was awake all morning, subsequently somewhat sluggish, with some noted asterixis. HENMT: COMMON NORMALS: oropharynx normal Resp: COMMON NORMALS: normal respiratory effort AUSCULTATION: diminished lung sounds Cardio: COMMON NORMALS: regular rhythm, S1 normal heart sound present, S2 normal heart sound present and No murmurs present (Cardio) RHYTHM: regular rhythm HEART SOUNDS: S1 normal heart sound present and S2 normal heart sound present OTHER: Unable to assess JVD GI: COMMON NORMALS: Normal to inspection, nondistended, normoactive bowel sounds present, Soft to palpation and non-tender PALPATION: Yes Soft to palpation Extremity: COMMON NORMALS: no joint enlargement OTHER: Thick legs with large amount of nonpitting edema, difficult to assess but also at least 1+ pitting edema Neuro: COMMON NORMALS: patient oriented x3 and moves all extremities Skin: COMMON NORMALS: no rashes or lesions noted GENERAL SKIN EXAM: no rashes or lesions noted Urinary Catheter Management^: La: Cath Placed During This Visit: yes Reason for Continuing Indwelling Catheter: Accurate Measurement of Urinary Output in Critically Ill Patients Urinary Catheter Date of Insertion: 07/27/19 Urinary Catheter Time of Insertion: 18:40 Data : 07/29/19 04:37 07/29/19 04:37 Micro: Microbiology 07/27/19 18:38 Bacterial Antigens - Final Urine,Clean Catch 07/27/19 18:38 Legionella Urinary Antigen - Final Urine,Clean Catch 07/27/19 13:40 Blood Culture - Preliminary Blood NEGATIVE TO DATE 07/27/19 13:35 Blood Culture - Preliminary Blood NEGATIVE TO DATE A&P Assessment and plan (1) Acute respiratory failure: Multifactorial respiratory failure. She has been somewhat discontent today, although does agree to stay to continue assessment and treatment. Declined ABG. Requested La catheter. Moved. Discussed with her and her . We will try to work with her in terms of her limits for aggressiveness of care. She overall appears to be improving, not requiring BiPAP as much, although still appears to have episodes of somnolence, some asterixis. See below. She declines use of additional BiPAP this afternoon. It is still not clear why she is retaining CO2. It may be as mentioned KATHIE, possibly undiagnosed OHS. Possibly undiagnosed COPD. At this time continue antibiotic for treatment of pneumonia. It is difficult to establish volume status on her. For concern of getting her to dehydrated and weak from Lasix, at this time will hold. 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 Will repeat chest x-ray. If she allows will obtain overnight pulse oximetry, and she actually may benefit from home BiPAP. Otherwise would refer for sleep study which she probably should have anyway given some daytime somnolence. In addition to PFT. Pulmonology follow-up. Continue to monitor mental status, provide BiPAP support as needed. PT evaluation. With recent microcytic anemia. Maintain SCD. Low-dose heparin. Low threshold to discontinue pharmacotherapy. She denies chest pain, has had no hemoptysis, no unilateral swelling, has no tachycardia. At this time suspicion for PE is low, although low threshold to escalate investigation. Given recent anemia requiring transfusion, iron deficiency, anticoagulation may be risky in case PE/DVT were a concern. Status: Acute (2) Acute encephalopathy: She overall appears to be improving, not requiring BiPAP as much, although still appears to have episodes of somnolence, some asterixis. This is definitely improved compared to admission, however, he appears to still have somnolent episodes, with some of noted asterixis, possibly hypercapnia again, although she declines ABG. Requested CT head, which was performed and does not show acute abnormality. Ammonia checked, and appears only mildly elevated at 58, doubtful that this was contributing given normal PLT and sodium levels, AST, but also with low albumin. Will request limited abdominal US. Liver was unremarkable in 2017. Continue management of respiratory conditions as above. Highly encouraged her to have formal sleep study done after discharge, possibly follow-up with neurology due to recurrent daytime somnolence in addition to pulmonology due to concern for OHS. Status: Acute (3) Pneumonia: Right lower lobe. Cannot exclude that this is not aspiration, thus at this time will continue Zosyn, vancomycin due to her recent hospitalization also. Obtain sputum cultures if possible. Urine antigens negative. Check rapid flu. She has been afebrile. She has only minimal cough. She was not assessed during the prior hospitalization, however, COVID-19 suspicion has been low. Status: Acute (4) Congestive heart failure: In negative balance. Continue Lasix at this time. Monitor I&O, renal function. Status: Acute Qualifiers: Heart failure chronicity: acute Heart failure type: unspecified Qualified Code(s): I50.9 - Heart failure, unspecified (5) Respiratory acidosis: Secondary to acute hypercapnic respiratory failure. Status: Acute (6) Morbid obesity: BMI 51.6. Would benefit from discussing weight loss options with PCP in office. Status: Acute (7) Microcytic anemia: Repeat hemoccult. Recently requiring 2 units PRBC transfusion last week. Unclear source of anemia. Does have iron deficiency. Bedside Hemoccult reported was negative. Monitor hemoglobin closely, currently close to discharge value. Continue PPI. Low threshold discontinue heparin PPx. Status: Acute Additional A&P Information Abnormal troponin: Suspected mismatch demand supply secondary to respiratory failure. Abnormal INR: 1.22. Previously appears closer to normal at 1.1. No clear reason. Is not on anticoagulation. Perhaps some dietary deficiency. Liver parameters otherwise unremarkable. Sodium, platelets appear to be unremarkable. Attestations Medical Necessity Statement*: Continue admission for assessment and management of respiratory failure, encephalopathy. 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
[2019-07-29 22:15] LABS: Influenza A by IFA Negative (Negative); Influenza B by IFA Negative (Negative)
[2019-07-30] VITALS (30 sets, daily range): BP systolic 107–156; BP diastolic 60–87; PULSE 61–102; RESP 13–30; TEMP 36.9–37.1; O2SAT 91–100
[2019-07-30] MEDS: ipratropium-albuterol 3 mL Neb INHALATION ×4 (03:20→20:37)
[2019-07-30] MEDS: piperacillin-tazobactam 3.375 GM in sodium chloride 0.9% (plus) 50 ML IV ×3 (05:13→19:43)
--- NOTE | 2019-07-30 06:00 | XR_ITS ---
WS: [id number] XR chest 1V portable [id number] REASON FOR EXAM: Hypoxia FINDINGS: The lung fournier today are hypoaerated. Cardiomegaly is again seen. With a small amount of left pleural effusion. The lung fournier are otherwise show no pneumonia, pleural effusion, pulmonary edema, no mass effect. XR/XR chest 1V portable [id number] IMPRESSION: Hypoaerated lungs Cardiomegaly
[2019-07-30] MEDS: pantoprazole DR 40 mg Tablet PO ×2 (08:28→17:57)
[2019-07-30] MEDS: heparin 5,000 unit/mL INJ 1 mL 5000 UNIT SUBCUT ×2 (08:29→19:43)
[2019-07-30 08:43] LABS: ABG PH Result 7.28 (7.35-7.45); Arterial Blood Gas Hematocrit 24.3 % (37-47); Base Excess ABG 14.1 mmol/L (-2.0-2.0); Blood Gas Sample Site Radial, left; Blood Gas Sample Type Arterial; Carboxyhemoglobin 1.9 %THgb (0.4-20.1); HCO3 ABG 42.9 mmol/L (22-26); HGB O2 Sat 95.3 % (95-100); Ionized Calcium Level - ABG 1.2 mmol/L (1.1-1.4); Oxygen Device NC; PO2 ABG 99.8 mmHg (80.0-100.0); Total Hemoglobin 7.9 g/dL (12-16)
[2019-07-30 08:45] LABS: ABG PCO2 91.5 mmHg (35-45)
--- NOTE | 2019-07-30 09:28 | US_ITS ---
WS: [id number] ABDOMINAL ULTRASOUND LIMITED REASON FOR VISIT: cirrhosis TECHNIQUE: Grayscale and Doppler ultrasound examination of the abdomen. FINDINGS: Pancreas: Normal Abdominal aorta and IVC: Not well seen. Liver: Liver measures 16.8 cm in length. The dense reflective changes consistent with fatty infiltrat ion. Gallbladder: Gallbladder not visualized mm common bile duct measures0. 62cm Right kidney: Right kidney measures 14.0 cm x 5.9 cm x 6.6 cm. No definite hydronephrosis or stones. US/US abdomen limited [id number] IMPRESSION: Fatty infiltration of the liver The gallbladder and aorta were poorly visualized.
--- NOTE | 2019-07-30 09:40 | PC.NURSE ---
pt here from [facility] via bed. report given at bedside
--- NOTE | 2019-07-30 10:00 | PM.PN ---
Subjective Subjective: Interval history: Lethargic this morning. Initially not well responsive per nursing staff, but waking up to sternal rub. Not taking good breaths. ABG checked w severe hypercapnia. More awake, still somnolent but answering questions, complains of blood pressure cuff squeezing her. Vitals/I&O/Wt Last Vital Signs Temp 98.7 F 07/30/19 07:29 Pulse 74 07/30/19 09:01 Resp 18 07/30/19 09:00 BP 140/78 07/30/19 09:19 Pulse Ox 93 07/30/19 09:01 07/29/19 07/30/19 07/30/19 22:59 06:59 14:59 Intake Total 50 / 790 550 / 1340 Output Total 400 / 2225 Balance -350 / -1435 550 / -885 Weight last 48 hrs Weight 152.18 kg Weight 150.547 kg Physical Exam Const: COMMON NORMALS: no acute distress and patient oriented x3 NUTRITIONAL APPEARANCE: obese morbidly obese ORIENTATION/CONSCIOUSNESS: not confused OTHER: Lethargic. Irritable. HENMT: COMMON NORMALS: oropharynx normal Resp: COMMON NORMALS: normal respiratory effort AUSCULTATION: diminished lung sounds Cardio: COMMON NORMALS: regular rhythm, S1 normal heart sound present, S2 normal heart sound present and No murmurs present (Cardio) RHYTHM: regular rhythm HEART SOUNDS: S1 normal heart sound present and S2 normal heart sound present OTHER: Unable to assess JVD GI: COMMON NORMALS: Normal to inspection, nondistended, normoactive bowel sounds present, Soft to palpation and non-tender PALPATION: Yes Soft to palpation Extremity: COMMON NORMALS: no joint enlargement OTHER: Thick legs with large amount of nonpitting edema, difficult to assess but also at least 1+ pitting edema Neuro: COMMON NORMALS: patient oriented x3 and moves all extremities Skin: COMMON NORMALS: no rashes or lesions noted GENERAL SKIN EXAM: no rashes or lesions noted Urinary Catheter Management^: La: Cath Placed During This Visit: yes Reason for Continuing Indwelling Catheter: Acute Urinary Retention or Obstruction Urinary Catheter Date of Insertion: 07/27/19 Urinary Catheter Time of Insertion: 18:40 Data : 07/29/19 04:37 07/29/19 04:37 A&P Assessment and plan (1) Acute respiratory failure: Worse hypercapneic respratory failure, encephalopathy with CO2 narcosis. Overnight oximetry on NC. Not on BiPAP. This morning noted not taking deep breaths/breathing regularly. CXR this morning w hypoaerated lungs, cardiomegaly. ABG w respiratory acidosis. 7.28/91.5/99.8/42.9 on NC 3L Continue BiPAP. Monitor in ICU. More and more suspicion for bad KATHIE and OHS. Repeat UA to rule out UTI, although prior was clear. Labs ordered last night not done this morning. She seems was irritable this moning per discussion w , and suspect declined. Reordered. Ammonia only slightly elevated at 58. Obtain limited abdominal ultrasound, with enlarged, fatty liver, I doubt that this is contributing, however, when mental status is slightly better, may start lactulose if she will allow. She has been selective as to what interventions she agrees to. She declined BiPAP during the daytime naps yesterday and declined ABG. CT head was unremarkable. We will request pulmonology assessment. Discussed condition with as well as plan. Discussed regarding possible transfer to [facility], however, at this time not sure that there are facilities/subspecialty additional that are unavailable here. states for now would like to keep her here if possible. Multifactorial respiratory failure. It is still not clear why she is retaining CO2. It may be as mentioned KATHIE, possibly undiagnosed OHS. Possibly undiagnosed COPD. At this time continue antibiotic for treatment of pneumonia. It is difficult to establish volume status on her. Lasix on hold for now. Would benefit from formal sleep study. PFT. Pulmonology follow-up. With recent microcytic anemia. Maintain SCD. Low-dose heparin. Low threshold to discontinue pharmacotherapy. She denies chest pain, has had no hemoptysis, no unilateral swelling, has no tachycardia. At this time suspicion for PE is low, although low threshold to escalate investigation. Given recent anemia requiring transfusion, iron deficiency, anticoagulation may be risky in case PE/DVT were a concern. Status: Acute (2) Acute encephalopathy: Worse today. Respiratory acidosis. Encephalopathy with worsened CO2 narcosis. As above. CT head unremarkable. Mild hyperammonemia? Enlarged level, steatosis. Other parameters not suggestive of liver cirrhosis. Highly encouraged her to have formal sleep study done after discharge, possibly follow-up with neurology due to recurrent daytime somnolence in addition to pulmonology due to concern for OHS. Status: Acute (3) Pneumonia: Right lower lobe. Cannot exclude that this is not aspiration, thus at this time will continue Zosyn, vancomycin due to her recent hospitalization also. Obtain sputum cultures if possible. Urine antigens negative. Check rapid flu. She has been afebrile. She has only minimal cough. She was not assessed during the prior hospitalization, however, COVID-19 suspicion has been low. Status: Acute (4) Congestive heart failure: In negative balance. Continue Lasix at this time. Monitor I&O, renal function. Status: Acute Qualifiers: Heart failure chronicity: acute Heart failure type: unspecified Qualified Code(s): I50.9 - Heart failure, unspecified (5) Respiratory acidosis: Secondary to acute hypercapnic respiratory failure. Status: Acute (6) Morbid obesity: BMI 59.4. Would benefit from discussing weight loss options with PCP in office. Status: Acute (7) Microcytic anemia: Repeat hemoccult. Recently requiring 2 units PRBC transfusion last week. Unclear source of anemia. Does have iron deficiency. Bedside Hemoccult reported was negative. Monitor hemoglobin closely, currently close to discharge value. Continue PPI. Low threshold discontinue heparin PPx. Status: Acute Additional A&P Information Abnormal troponin: Suspected mismatch demand supply secondary to respiratory failure. Abnormal INR: 1.22. Previously appears closer to normal at 1.1. No clear reason. Is not on anticoagulation. Perhaps some dietary deficiency. Liver parameters otherwise unremarkable. Sodium, platelets appear to be unremarkable. Attestations Medical Necessity Statement*: Continue admission for assessment and management of acute respiratory failure, encephalopathy. Coding Level of Care Code Acute Senior Training [employer] Development Rep for [facility] Diagnoses Acute respiratory failure J96.00 Acute encephalopathy G93.40 Pneumonia J18.9 Congestive heart failure I50.9 Heart failure chronicity: acute Heart failure type: unspecified Respiratory acidosis E87.2 Morbid obesity E66.01 Microcytic anemia D50.9
--- NOTE | 2019-07-30 10:10 | PC.SOCIAL ---
IMM Page 2 of IMM explained to patient. Initialed, dated, and timed placed in chart.
[2019-07-30 10:32] LABS: Basophils # 0.1 10^3/uL (0.0-0.1); Basophils % 0.7 %; Eosinophils # 0.2 10^3/uL (0.0-0.8); Eosinophils % 2.5 %; Hematocrit 32.1 % (37.0-47.0); Hemoglobin 8.2 g/dL (11.5-15.3); Lymphocytes # 0.9 10^3/uL (0.8-4.8); Lymphocytes % 10.5 %; Mean Corpuscular HGB Conc 25.5 g/dL (30.0-36.0); Mean Corpuscular Hemoglobin 19.7 pg (28.0-34.0); Mean Corpuscular Volume 77.2 fL (81-99); Mean Platelet Volume 11.8 fL (7.4-10.4); Monocytes % 11.4 %; Neutrophils # 6.6 10^3/uL (1.8-7.7); Neutrophils % 74.2 %; Nucleated Red Blood Cells # 0.1 /100WBC; Nucleated Red Blood Cells % 0.6 %; Platelet Count 199 10^3/cmm (130-400); Red Blood Count 4.16 10^6/uL (4.1-5.3); Red Cell Distribution Width 22.3 % (12.1-15.1); White Blood Count 8.9 10^3/uL (4.0-10.0)
[2019-07-30 10:34] LABS: Alanine Aminotransferase 10 U/L (0-33); Albumin Level 3.5 g/dL (3.5-5.2); Alkaline Phosphatase 42 IU/L (35-105); Anion Gap 13.4 (5-19); Aspartate Amino Transferase 21 U/L (0-32); Blood Urea Nitrogen 19 mg/dL (8-23); Calcium 8.8 mg/dL (8.5-10.5); Carbon Dioxide 37 mmol/L (22-29); Chloride 96 mmol/L (98-107); Globulin 2.4 g/dL (1.3-4.6); Glucose 125 mg/dL (65-115); Osmolality Calculated 292 mOsm/kg (285-295); Potassium 4.4 mmol/L (3.5-5.1); Sodium 142 mmol/L (136-145); Total Bilirubin 0.5 mg/dL (0.15-1.2); Total Protein 5.9 g/dL (6.6-8.7)
[2019-07-30 10:57] LABS: ABG PCO2 68.3 mmHg (35-45); ABG PH Result 7.41 (7.35-7.45); Alveolar-Arterial Oxygen Gradi 46.3 mmHg (5-10); Arterial Blood Gas Hematocrit 22.8 % (37-47); Base Excess ABG 16.9 mmol/L (-2.0-2.0); Blood Gas Allen Test Pos; Blood Gas Sample Site Radial, right; Blood Gas Sample Type Arterial; Carboxyhemoglobin 2.1 %THgb (0.4-20.1); HCO3 ABG 43.5 mmol/L (22-26); HGB O2 Sat 92.6 % (95-100); Ionized Calcium Level - ABG 1.2 mmol/L (1.1-1.4); Methemoglobin 1.1 % (0.4-1.5); Oxygen Device BIPAP; Oxygen Saturation ABG 95.7; PO2 ABG 68.8 mmHg (80.0-100.0); Potassium Level - ABG 4.1 mmol/L (3.5-5.0); Total Hemoglobin 7.4 g/dL (12-16)
[2019-07-30 11:38] LABS: Slide Review Slide Review Perform
[2019-07-30] MEDS: FUROsemide 10 mg/mL SDV 4mL 40 MG IVP (11:51)
[2019-07-30 13:58] LABS: Add Urine Microscopic? YES; Bilirubin Urine Neg (NEGATIVE); Blood Urine 3+ (Negative); Glucose Urine UA Norm (Normal); Ketones Urine Negative (Negative); Leukocyte Esterase Urine Negative (Negative); Nitrate Urine Negative (Negative); Protein Urine Neg (Negative); Specific Gravity, Urine 1.005 (1.005-1.030); Urine Appearance Clear (CLEAR); Urine Color Straw (Yellow); Urobilinogen Urine Norm (Negative); pH Urine 7 (5-7)
[2019-07-30 13:59] LABS: RBC Urine 80-100 /hpf (0-2)
[2019-07-30 14:00] LABS: Add Urine Culture? Yes; Bacteria Urine TRACE; WBC Urine 0-4 /hpf (0-5)
--- NOTE | 2019-07-30 15:06 | PC.NURSE ---
COVID testing done on pt. and sent to the lab.
--- NOTE | 2019-07-30 16:36 | PC.NURSE ---
Pt took her bipap off and states she does not want to wear it anymore. She was 92% on room air. Put on 2L//NC
--- NOTE | 2019-07-30 17:52 | US_ITS ---
WS: [id number] ABDOMINAL ULTRASOUND LIMITED REASON FOR VISIT: Cirrhosis of liver? Ascites? TECHNIQUE: Grayscale and Doppler ultrasound examination of the abdomen. FINDINGS: Pancreas: Normal Abdominal aorta and IVC: Normal the aorta measured 2.5 cm. Liver: Liver measures 19.8 cm in length. Enlarged liver with fatty infiltration. Gallbladder: Status post cholecystectomy. The common bile duct measured 0.55 cm Right kidney: Right kidney measures 12.3 cm x 5.2 cm. No hydronephrosis no stones. US/US abdomen limited [id number] IMPRESSION: Hepatomegaly with fatty infiltration of the liver Status post cholecystectomy.
--- NOTE | 2019-07-30 21:40 | PM.CONSULT ---
Providers/Reason For Consult Consulting Physican/Specialty*: Pulmonary and critical care medicine Reason for Consult*: Acute on Chronic hypercapnic respiratory failure Attending Physician: Harsh Leary Primary Care Provider: Estuardo Lara MD History of Present Illness History of Present Illness Nenita Salomon is a 83 year old female With an interesting presentation. The patient was recently hospitalized with iron deficiency anemia and at that time she was also found to be in heart failure with preserved ejection fraction. The echocardiogram at that time revealed normal ejection fraction without any significant valvular abnormalities. The patient was found to have grade 2 diastolic dysfunction. The heart failure was probably exacerbated by the severe iron deficiency anemiaRequiring hyperdynamic circulationThe etiology of the iron deficiency anemia is unclear. I have reviewed the patient's previous medical record. The patient had a hemoglobin level of 12.4 in 2017. I do not have the recent laboratory work from her primary care doctor's office. Talking to the patient today and her she does not give any history of hematuria, black tarry stool or any other obvious source of potential blood loss.The patient was given iron supplementation which she has been taking. This time, the patient was brought to the hospital with altered mental status. According to her , the patient had been experiencing weakness, tiredness fatigue and exertional shortness of breath over the past 6 months. Over the past few weeks the patient has been having episodes of subtle change in mental status. Upon presentation to the hospital, the patient was found to be in acute on chronic hypercapnic respiratory failure. She was also hypoxic. The patient had been managed with noninvasive positive pressure ventilation. Her arterial blood gas has improved with BiPAP. However, occasionally during her hospital admission the patient was seen not to be initiating breath and AVAP mode was needed on BiPAP.The patient does not have a previous history of obstructive sleep apnea or obesity hypoventilation syndrome. According to the , he has noted her to be apneic however at that time the patient was having chest movement. This would be more suggestive of obstructive sleep apnea and central sleep apnea. I have reviewed her laboratory data again from 2017 which showed a bicarb level of 25 which is not consistent with hypercapnic respiratory failure. The patient was seen and examined in ICU today. The patient appeared to be sleepy however she was able to answer all questions without any difficulty and provided appropriate history. She denies any fever, night sweats, chills any chest pain, hemoptysis, melena. The predominant complaint she had was exertional shortness of breath. The patient CT scans are consistent with likely right lower lobe and possibly left lower lobe infiltrate. The left lower lobe infiltrate seems to be retrocardiac. Abdominal ultrasound showed fatty liver. The patient had undergone cholecystectomy in the past. There is no lesion on the right kidney. Interestingly when the patient presented to the hospital this time the urinalysis was positive for 20-100 RBCs. I had performed a bedside ultrasound. There is some evidence for left lower lobe consolidation, no pleural effusion, good cardiac contractility, no hydronephrosis bilaterally or lesion to the kidneys. Review of Systems General: Reports: 10 or more systems reviewed and unremarkable except in HPI and below Meds/Allergies Home Medications and Allergies Home Medications Medication Instructions Recorded Confirmed Last Taken Type furosemide [Lasix] 20 mg PO QAM #30 tab 07/22/19 07/27/19 07/27/19 Rx pantoprazole 40 mg PO BID #60 tab 07/22/19 07/27/19 07/27/19 Rx polysaccharide iron complex 150 mg PO DAILY #30 cap 07/22/19 07/27/19 07/27/19 Rx [Ferrex 150] albuterol sulfate 1 puff INHALATION Q6H PRN 07/27/19 07/27/19 Unknown History ascorbic acid (vitamin C) [Vitamin 500 mg PO DAILY 07/27/19 07/27/19 Unknown History C] Allergies Allergy/AdvReac Type Severity Reaction Status Date / Time erythromycin base Allergy ALGY-Rash Verified 07/27/19 13:12 Latex, Natural Rubber Allergy ALGY-Rash Verified 07/27/19 13:12 Current Medications Current Medications Generic Name Dose Route Start Last Admin Trade Name Freq PRN Reason Stop Dose Admin Albuterol/Ipratropium 3 ml 07/27/19 21:00 07/30/19 20:37 Duoneb INHALATION 3 ml Q6H.RESPIRATORY BIRD Administration Furosemide 40 mg 07/30/19 10:30 07/30/19 11:51 Lasix IVP 40 mg Q24H BIRD Administration Heparin Sodium (Beef Lung) 5,000 unit 07/27/19 19:00 07/30/19 19:43 Heparin SUBCUT 5,000 unit Q12H BIRD Administration Piperacillin Sod/Tazobactam 50 mls @ 12.5 mls/hr 07/27/19 23:30 07/30/19 19:43 Sod 3.375 gm/ Sodium Chloride IV 12.5 mls/hr Q8H BIRD Administration Protocol Vancomycin HCl 2,000 mg/ 500 mls @ 250 mls/hr 07/28/19 14:00 07/30/19 05:05 Sodium Chloride IV Infused Q18H BIRD Infusion Pantoprazole Sodium 40 mg 07/28/19 18:00 07/30/19 17:57 Protonix PO 40 mg BID BIRD Administration PFSH Acute PFSH: Medical History Cardiomegaly Congestive heart failure Hiatal hernia Lymphedema Morbid obesity Nephrolithiasis Surgical History H/O: hysterectomy History of appendectomy History of carpal tunnel surgery Hx of cholecystectomy S/P knee replacement Family History Father CAD (coronary artery disease) Denies family history of Hyperlipidemia Lung disease Hypertension Social History Smoking and tobacco status: never smoked Alcohol intake: never Household members: family Housing: House Marital status: Vitals/I&O/Wt Last Vital Signs Temp 98.4 F 07/30/19 20:00 Pulse 70 07/30/19 20:43 Resp 24 H 07/30/19 20:37 BP 139/60 07/30/19 20:00 Pulse Ox 96 07/30/19 20:43 07/30/19 07/30/19 07/30/19 06:59 14:59 22:59 Intake Total 550 / 1340 50 / 50 370 / 420 Output Total 1200 / 1200 925 / 2125 Balance 550 / -885 -1150 / -1150 -555 / -1705 Weight last 48 hrs Weight 335 lb 8 oz Weight 331 lb 14.4 oz Physical Exam Narrative: EXAM NARRATIVE: General: Patient is awake alert and oriented, in no distress Neck: No JVD Auscultation: Crackles at bilateral bases, no wheezing or rhonchi Cardiovascular: Regular rate and rhythm, S1-S2 present, Distant heart sound, Positive for peripheral edema. Abdomen: Soft, nontender, Distended from obesity, positive bowel sound Skin: No rash Neuro: Patient is awake alert and oriented, no gross motor deficit Urinary Catheter Management^: La: Cath Placed During This Visit: yes Reason for Continuing Indwelling Catheter: Accurate Measurement of Urinary Output in Critically Ill Patients Urinary Catheter Date of Insertion: 07/27/19 Urinary Catheter Time of Insertion: 18:40 Data Other Data: Other data: I have reviewed the patient's laboratory, microbiologic and radiologic data. The detailed description of this is present in history of presenting illness. The patient has evidence of chronic hypercapnic respiratory failure the metabolic panel. A&P Assessment and plan (1) Acute on chronic respiratory failure with hypoxia and hypercapnia: The etiology for this patient's hypercapnic respiratory failure is unclear. The acutely altered mental status is likely secondary to decompensation and worsening of hypercapnia and the acute component of hypercapnia. The etiology of hypercapnic respiratory failure is fairly limited: 1. 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 Chronic obstructive pulmonary disease. This can also happen in the setting of decompensated heart failure leading to pulmonary edema and bronchoconstriction however this is most likely to cause acute decompensation rather than a chronic state 3. Obesity hypoventilation syndrome. Sleep apnea is usually not associated with chronic hypercapnia especially during the daytime when the patient is awake 4. Neuromuscular weakness which could be secondary to a neurologic or primary muscular problem. 5. Kyphoscoliosis or other restrictive lung disease Given the patient's history, the contribution from chronic obstructive pulmonary disease can be easily ruled out. However she could be suffering from any of the other etiologies. The patient can easily have obesity hypoventilation syndrome however there was no evidence of hypercapnia in 2017. I have asked her to bring us the blood work from the last 2 years to give us an idea. This will help us identifying the rapidity of the development of this hypercapnia. A component of neuromuscular weakness could easily explain the patient's symptoms. The presence of anemia is very important in this respect. I do not have any etiology why the patient will be having anemia. There is no identifiable source of bleeding. Which makes me wonder whether the patient is having malignancy. This could be a colorectal cancer or in the setting of hematuria could be bladder cancer. Any kind of cancer can be associated with paraneoplastic syndrome that can cause neuromuscular weakness or even autoantibodies against neural tissue. I am going to obtain a spirometry, maximal inspiratory and expiratory pressures. The patient is undergoing COVID-19 testing, once this is negative I would recommend getting a CT scan of the chest abdomen and pelvis. The patient would definitely need colonoscopy and possibly a cystoscopy at least as outpatient. Her CT scan of the head was negative however she will need an MRI. The patient could be easily suffering from myasthenia gravis. I have also discussed that the patient needs to wear BiPAP. The patient was not happy about it. She says that she has difficulty using BiPAP as she had broken her nose before and it makes her feel uncomfortable. However she would definitely benefit from it. I would be interested to see what the diagnosis turns out to be in her case. The hypoxia is likely secondary to the hypercapnia and as evident rapidly reversible with small amount of oxygen. 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
[2019-07-31] VITALS (20 sets, daily range): BP systolic 102–140; BP diastolic 49–71; PULSE 63–86; RESP 17–31; TEMP 36.8–37.2; O2SAT 87–100
[2019-07-31] MEDS: acetaminophen 325 mg Tablet PO (01:41)
[2019-07-31] MEDS: ipratropium-albuterol 3 mL Neb INHALATION ×4 (02:00→23:29)
[2019-07-31] MEDS: piperacillin-tazobactam 3.375 GM in sodium chloride 0.9% (plus) 50 ML IV ×3 (04:32→21:47)
[2019-07-31 05:25] LABS: Basophils # 0.1 10^3/uL (0.0-0.1); Basophils % 1.3 %; Eosinophils # 0.4 10^3/uL (0.0-0.8); Eosinophils % 3.8 %; Hematocrit 28.7 % (37.0-47.0); Hemoglobin 7.2 g/dL (11.5-15.3); Lymphocytes # 1.6 10^3/uL (0.8-4.8); Lymphocytes % 15.2 %; Mean Corpuscular HGB Conc 25.1 g/dL (30.0-36.0); Mean Corpuscular Hemoglobin 19.3 pg (28.0-34.0); Mean Corpuscular Volume 76.7 fL (81-99); Mean Platelet Volume 11.5 fL (7.4-10.4); Monocytes # 1.4 10^3/uL (0.2-0.9); Monocytes % 12.9 %; Neutrophils % 66.3 %; Nucleated Red Blood Cells % 0.2 %; Platelet Count 200 10^3/cmm (130-400); Red Blood Count 3.74 10^6/uL (4.1-5.3); Red Cell Distribution Width 22.6 % (12.1-15.1); White Blood Count 10.6 10^3/uL (4.0-10.0)
[2019-07-31 05:33] LABS: Alanine Aminotransferase 7 U/L (0-33); Alkaline Phosphatase 36 IU/L (35-105); Anion Gap 13.1 (5-19); Aspartate Amino Transferase 18 U/L (0-32); Blood Urea Nitrogen 23 mg/dL (8-23); Calcium 8.8 mg/dL (8.5-10.5); Carbon Dioxide 38 mmol/L (22-29); Chloride 95 mmol/L (98-107); Globulin 2.8 g/dL (1.3-4.6); Glucose 122 mg/dL (65-115); Osmolality Calculated 292 mOsm/kg (285-295); Potassium 4.1 mmol/L (3.5-5.1); Sodium 142 mmol/L (136-145); Total Bilirubin 0.5 mg/dL (0.15-1.2); Total Protein 5.8 g/dL (6.6-8.7)
[2019-07-31 05:35] LABS: Ammonia 38 umol/L (11-51)
[2019-07-31 06:13] LABS: Slide Review Slide Review Perform
[2019-07-31] MEDS: heparin 5,000 unit/mL INJ 1 mL 5000 UNIT SUBCUT ×2 (07:59→21:50)
[2019-07-31] MEDS: pantoprazole DR 40 mg Tablet PO ×2 (08:00→18:42)
[2019-07-31] MEDS: FUROsemide 10 mg/mL SDV 4mL 40 MG IVP (14:22)
--- NOTE | 2019-07-31 19:00 | CTR_ITS ---
PROCEDURE INFORMATION: Exam: CT Chest With Contrast Exam date and time: 07/31/2019 7:43 PM Age: 83 years old Clinical indication: Other: Shob; Shortness of breath; Prior surgery; Surgery type: Gb, hyst, appy; Additional info: Assess for any obvious malignancy TECHNIQUE: Imaging protocol: Computed tomography of the chest with intravenous contrast. Radiation optimization: All CT scans at this facility use at least one of these dose optimization techniques: automated exposure control; mA and/or kV adjustment per patient size (includes targeted exams where dose is matched to clinical indication); or iterative reconstruction. Contrast material: OMNI 300; Contrast volume: 95 ml; Contrast route: IV; COMPARISON: CR XR chest 1V portable [id number] 07/30/2019 7:48 AM RADIATION DOSE METRICS: Total DLP: 2683.1 mGy-cm FINDINGS: Lungs: Bibasilar atelectasis versus infiltrate. Pleural space: Small bilateral pleural effusions. Heart: Unremarkable. No cardiomegaly. No pericardial effusion. Mediastinum: Large hiatal hernia. Aberant right subclavian artery, normal variant. Aorta: Unremarkable. No aortic aneurysm. Lymph nodes: Unremarkable. No enlarged lymph nodes. Bones/joints: Unremarkable. No acute fracture. Soft tissues: Unremarkable. IMPRESSION: 1. Small bilateral pleural effusions. 2. Bibasilar atelectasis versus infiltrate. 3. Large hiatal hernia. PROCEDURE INFORMATION: Exam: CT Abdomen And Pelvis With Contrast Exam date and time: 07/31/2019 7:43 PM Age: 83 years old Clinical indication: Other: Shob; Shortness of breath; Prior surgery; Surgery type: Gb, hyst, appy; Additional info: Assess for any obvious malignancy TECHNIQUE: Imaging protocol: Computed tomography of the abdomen and pelvis with intravenous contrast. Radiation optimization: All CT scans at this facility use at least one of these dose optimization techniques: automated exposure control; mA and/or kV adjustment per patient size (includes targeted exams where dose is matched to clinical indication); or iterative reconstruction. Contrast material: OMNI 300; Contrast volume: 95 ml; Contrast route: IV; COMPARISON: CR XR chest 1V portable [id number] 07/30/2019 7:48 AM RADIATION DOSE METRICS: Total DLP: 2683.1 mGy-cm FINDINGS: Liver: Normal. No mass. Gallbladder and bile ducts: Cholecystectomy. Pancreas: Normal. No ductal dilation. Spleen: Normal. No splenomegaly. Adrenals: Normal. No mass. Kidneys and ureters: Bilateral parapelvic renal cysts versus mild hydronephrosis without obstructing lesion. Stomach and bowel: Diverticulosis without diverticulitis. Appendix: No evidence of appendicitis. Intraperitoneal space: Unremarkable. No free air. No significant fluid collection. Vasculature: Unremarkable. No abdominal aortic aneurysm. Lymph nodes: Unremarkable. No enlarged lymph nodes. Bladder: La catheter in the urinary bladder with air presumed iatrogenic. Reproductive: Unremarkable as visualized. Bones/joints: Unremarkable. No acute fracture. Soft tissues: Unremarkable. CT/CT chest abd pel w con* IMPRESSION: 1. Negative for acute inflammatory process. 2. Cholecystectomy. 3. Bilateral parapelvic renal cysts versus mild hydronephrosis without obstructing lesion. 4. Diverticulosis without diverticulitis. 5. La catheter in the urinary bladder with air presumed iatrogenic. Radiation Dose CTDIVOL = (mGy): DLP = 2683.1~2683.1 (mGy-cm)
--- NOTE | 2019-07-31 20:15 | PM.PN ---
Subjective Subjective: Interval history: She is lucid today. Denies any pain or complaints. Vitals/I&O/Wt Last Vital Signs Temp 98.2 F 07/31/19 20:00 Pulse 82 07/31/19 20:00 Resp 31 H 07/31/19 20:00 BP 114/68 07/31/19 20:00 Pulse Ox 92 07/31/19 20:00 07/31/19 07/31/19 07/31/19 06:59 14:59 22:59 Intake Total 50 / 470 1250 / 1250 450 / 1700 Output Total 525 / 2650 475 / 475 1250 / 1725 Balance -475 / -2180 775 / 775 -800 / -25 Weight last 48 hrs Weight 148.642 kg Weight 152.18 kg Physical Exam Const: COMMON NORMALS: no acute distress and patient oriented x3 NUTRITIONAL APPEARANCE: obese morbidly obese ORIENTATION/CONSCIOUSNESS: not confused HENMT: COMMON NORMALS: oropharynx normal Resp: COMMON NORMALS: normal respiratory effort AUSCULTATION: diminished lung sounds Cardio: COMMON NORMALS: regular rhythm, S1 normal heart sound present, S2 normal heart sound present and No murmurs present (Cardio) RHYTHM: regular rhythm HEART SOUNDS: S1 normal heart sound present and S2 normal heart sound present OTHER: Unable to assess JVD GI: COMMON NORMALS: Normal to inspection, nondistended, normoactive bowel sounds present, Soft to palpation and non-tender PALPATION: Yes Soft to palpation Extremity: COMMON NORMALS: no joint enlargement OTHER: Thick legs with large amount of nonpitting edema Neuro: COMMON NORMALS: patient oriented x3 and moves all extremities Skin: COMMON NORMALS: no rashes or lesions noted GENERAL SKIN EXAM: no rashes or lesions noted Urinary Catheter Management^: La: Cath Placed During This Visit: yes Reason for Continuing Indwelling Catheter: Accurate Measurement of Urinary Output in Critically Ill Patients Urinary Catheter Date of Insertion: 07/27/19 Urinary Catheter Time of Insertion: 18:40 Data : 07/31/19 05:03 07/31/19 05:03 Micro: Microbiology 07/29/19 12:10 Occult Blood (FIT) - Final Stool 07/30/19 13:10 Urine Culture - Preliminary Urine,Clean Catch A&P Assessment and plan (1) Acute respiratory failure: Appreciate pulmonology assessment. This evening COVID-19 is found negative. Isolation is discontinued. Her mental status today is much better after BiPAP support, she remains lucid. We will initiate work-up as recommended by pulmonology. Ordered CT scan, MRI brain. May benefit from testing for MG perhaps ice pack test to start. Other tests are not suggestive of etiology. TSH has been normal. Electrolytes normal. UA repeated without sign of UTI. Does have some hematuria. CT scan for additional assessment for possible reason, does have history of stones. Also iron deficiency anemia, concern for possible underlying malignancy. is not sure if she is ever had a colonoscopy. Discussed with her and her need to wear BiPAP. She reportedly has had some nasal fracture, although discussed that different masks available may avoid irritating the old injury. We discussed also unclear significance of ammonia elevation up to 58, currently is down to normal. She is currently lucid, although still difficult to say that it may be related to that given minimal elevation. Has fatty liver infiltration with liver enlargement, although ocular parameters are not suggestive of cirrhosis or fibrosis. Consider repeating if she ever again develops episode of lethargy/hypercapnia. Suspicion for KATHIE and OHS. Continue Lasix for CHF. With recent microcytic anemia. Maintain SCD. Low-dose heparin. Low threshold to discontinue pharmacotherapy, although Hemoccult has been negative. She denies chest pain, has had no hemoptysis, no unilateral swelling, has no tachycardia. At this time suspicion for PE is low, although low threshold to escalate investigation. Given recent anemia requiring transfusion, iron deficiency, anticoagulation may be risky in case PE/DVT were a concern. Status: Acute (2) Acute encephalopathy: Improved. speaking to her on the phone states she is back to her usual baseline. As above. CT head unremarkable. Mild hyperammonemia? Enlarged level, steatosis. Other parameters not suggestive of liver cirrhosis. Needs to wear BiPAP at night. Highly encouraged her to have formal sleep study done after discharge, possibly follow-up with neurology due to recurrent daytime somnolence in addition to pulmonology due to concern for OHS. Status: Acute (3) Pneumonia: Check MRSA PCR. Right lower lobe. Cannot exclude that this is not aspiration, thus at this time will continue Zosyn, vancomycin due to her recent hospitalization also. Obtain sputum cultures if possible. Urine antigens negative. Check rapid flu. She has been afebrile. She has only minimal cough. She was not assessed during the prior hospitalization, however, COVID-19 suspicion has been low. Status: Acute (4) Congestive heart failure: In negative balance. Continue Lasix at this time. Monitor I&O, renal function. Status: Acute Qualifiers: Heart failure chronicity: acute Heart failure type: unspecified Qualified Code(s): I50.9 - Heart failure, unspecified (5) Respiratory acidosis: Secondary to acute hypercapnic respiratory failure. Status: Acute (6) Morbid obesity: BMI 59.4. Would benefit from discussing weight loss options with PCP in office. Status: Acute (7) Microcytic anemia: Repeat hemoccult negative. Unclear cause for iron deficiency anemia. Will benefit from replacement. Additional evaluation as above. also unsure if ever had a colonoscopy. Recently requiring 2 units PRBC transfusion last week. Unclear source of anemia. Does have iron deficiency. Bedside Hemoccult reported was negative. Monitor hemoglobin closely, currently close to discharge value. Continue PPI. Low threshold discontinue heparin PPx. Status: Acute Additional A&P Information Abnormal troponin: Suspected mismatch demand supply secondary to respiratory failure. Abnormal INR: 1.22. Previously appears closer to normal at 1.1. No clear reason. Is not on anticoagulation. Perhaps some dietary deficiency. Liver parameters otherwise unremarkable. Sodium, platelets appear to be unremarkable. Attestations Medical Necessity Statement*: Continue admission for assessment of management of recurrent severe hypercapnic respiratory failure and encephalopathy, pneumonia, CHF, alongside microcytic anemia. 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
--- NOTE | 2019-07-31 20:21 | PC.NURSE ---
1944 CT Contras started
[2019-07-31 20:43] LABS: Coronavirus Lab Test PTC Negative
[2019-07-31] MEDS: iohexol 300 mg/mL 100 mL Btl 95 ML IV (20:59)
--- NOTE | 2019-07-31 21:01 | PC.NURSE ---
2044 Patient transferred to [facility] REport given to Cecily [facility] no distress or complaints. CT contrast complete
[2019-07-31] MEDS: iohexol 300 mg/mL 50 mL Btl 25 ML PO (21:02)
[2019-08-01] VITALS (10 sets, daily range): BP systolic 114–121; BP diastolic 56–68; PULSE 18–91; RESP 17–24; TEMP 36.4–37.1; O2SAT 91–96
[2019-08-01] MEDS: ipratropium-albuterol 3 mL Neb INHALATION ×3 (02:26→21:37)
[2019-08-01] MEDS: piperacillin-tazobactam 3.375 GM in sodium chloride 0.9% (plus) 50 ML IV ×3 (03:54→20:28)
[2019-08-01 04:55] LABS: Basophils # 0.1 10^3/uL (0.0-0.1); Basophils % 1.1 %; Eosinophils # 0.5 10^3/uL (0.0-0.8); Hematocrit 28.1 % (37.0-47.0); Hemoglobin 7.3 g/dL (11.5-15.3); Lymphocytes # 1.6 10^3/uL (0.8-4.8); Lymphocytes % 15.6 %; Mean Corpuscular Hemoglobin 19.5 pg (28.0-34.0); Mean Corpuscular Volume 75.1 fL (81-99); Mean Platelet Volume 11.7 fL (7.4-10.4); Monocytes # 1.5 10^3/uL (0.2-0.9); Neutrophils # 6.3 10^3/uL (1.8-7.7); Nucleated Red Blood Cells % 0 %; Platelet Count 211 10^3/cmm (130-400); Red Blood Count 3.74 10^6/uL (4.1-5.3); Red Cell Distribution Width 22.8 % (12.1-15.1); White Blood Count 9.9 10^3/uL (4.0-10.0)
[2019-08-01 05:14] LABS: Alanine Aminotransferase 7 U/L (0-33); Albumin Level 3.1 g/dL (3.5-5.2); Alkaline Phosphatase 36 IU/L (35-105); Anion Gap 11.8 (5-19); Aspartate Amino Transferase 17 U/L (0-32); Blood Urea Nitrogen 26 mg/dL (8-23); Calcium 8.6 mg/dL (8.5-10.5); Carbon Dioxide 39 mmol/L (22-29); Chloride 92 mmol/L (98-107); Glucose 125 mg/dL (65-115); Magnesium 2.2 mg/dL (1.7-2.3); Osmolality Calculated 286 mOsm/kg (285-295); Phosphorus 3.8 mg/dL (2.5-4.5); Potassium 3.8 mmol/L (3.5-5.1); Sodium 139 mmol/L (136-145); Total Bilirubin 0.6 mg/dL (0.15-1.2); Total Protein 6.1 g/dL (6.6-8.7)
[2019-08-01 05:37] LABS: Slide Review Slide Review Perform
[2019-08-01 08:26] LABS: Vancomycin Trough 25.9 ug/mL (10-15)
[2019-08-01] MEDS: pantoprazole DR 40 mg Tablet PO ×2 (08:59→17:00)
[2019-08-01] MEDS: heparin 5,000 unit/mL INJ 1 mL 5000 UNIT SUBCUT ×2 (08:59→20:27)
--- NOTE | 2019-08-01 10:19 | PM.PN ---
Subjective Subjective: Interval history: She wakes up easily. Appears tired. Denies pain or discomfort. Asks that she would like to go home. Vitals/I&O/Wt Last Vital Signs Temp 98.7 F 08/01/19 07:26 Pulse 78 08/01/19 08:22 Resp 18 08/01/19 08:22 BP 121/56 08/01/19 07:26 Pulse Ox 93 08/01/19 08:22 07/31/19 08/01/19 08/01/19 22:59 06:59 14:59 Intake Total 1120 / 2370 50 / 2420 360 / 360 Output Total 1250 / 1725 1400 / 3125 Balance -130 / 645 -1350 / -705 360 / 360 Weight last 48 hrs Weight 146.984 kg Weight 148.642 kg Physical Exam Const: COMMON NORMALS: no acute distress and patient oriented x3 NUTRITIONAL APPEARANCE: obese morbidly obese ORIENTATION/CONSCIOUSNESS: not confused OTHER: Appears napping, but wakes up easily. HENMT: COMMON NORMALS: oropharynx normal Resp: COMMON NORMALS: normal respiratory effort AUSCULTATION: diminished lung sounds Cardio: COMMON NORMALS: regular rhythm, S1 normal heart sound present, S2 normal heart sound present and No murmurs present (Cardio) RHYTHM: regular rhythm HEART SOUNDS: S1 normal heart sound present and S2 normal heart sound present OTHER: Unable to assess JVD GI: COMMON NORMALS: Normal to inspection, nondistended, normoactive bowel sounds present, Soft to palpation and non-tender PALPATION: Yes Soft to palpation Extremity: COMMON NORMALS: no joint enlargement OTHER: Thick legs with large amount of nonpitting edema Neuro: COMMON NORMALS: patient oriented x3 and moves all extremities Skin: COMMON NORMALS: no rashes or lesions noted GENERAL SKIN EXAM: no rashes or lesions noted Urinary Catheter Management^: La: Cath Placed During This Visit: yes Reason for Continuing Indwelling Catheter: Accurate Measurement of Urinary Output in Critically Ill Patients Urinary Catheter Date of Insertion: 07/27/19 Urinary Catheter Time of Insertion: 18:40 Data : 08/01/19 04:30 08/01/19 04:30 Micro: Microbiology 07/29/19 12:10 Occult Blood (FIT) - Final Stool 07/30/19 13:10 Urine Culture - Preliminary Urine,Clean Catch A&P Assessment and plan (1) Acute respiratory failure: She desaturates very easily during the day per nursing staff without oxygen down below 84, with saturation picking up with 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 Breathes through her mouth as well. Also she does not realize when she is hypoxic. As well appears to be reluctant to use BiPAP at times. Did tolerate it for several hours last night, but then took it off stating because could not hear her surroundings. CT C/A/P w contrast w small bilat pl effusions, bibasilar atelectasis, lge hiatal hernia. No inflammatory process, cholecystectomy, renal cysts, mild hydronephrosis without obstruction. Diverticulosis. Requested for basic bedside spirometry and NIF. More formal studies can only be done with dedicated assessment outpatient basis as per RT. Mg and phos normal. MRI brain ordered. Will attempt ice test today. Will discuss w discharge planning as she cannot go home without ventilation support. She has had multiple episodes of desaturation on overnight pulse oximetry. Also with noted hypercapnia on multiple ABG. Discussing with RT, and will also find out She says the noise has been bothering her. discussed strategies for noise reduction. Other tests are not suggestive of etiology. TSH has been normal. Electrolytes normal. UA repeated without sign of UTI. Does have some hematuria. Possibly from catheter. Would reassess after some time and if still present consider follow up w urology. Consider endoscopic evaluation on outpatient side for iron deficiency anemia. Due to severity of hypercapnia episodes this may require intubation. Discussed with her and her need to wear BiPAP. She reportedly has had some nasal fracture, although discussed that different masks available may avoid irritating the old injury. Today states has tolerated the mask better but bothered by noise. Unclear significance of ammonia elevation up to 58, currently is down to normal. She is currently lucid, although still difficult to say that it may be related to that given minimal elevation. Has fatty liver infiltration with liver enlargement, although ocular parameters are not suggestive of cirrhosis or fibrosis. Consider repeating if she ever again develops episode of lethargy/hypercapnia. Suspicion for KATHIE and OHS. Continue Lasix for CHF. With recent microcytic anemia. Maintain SCD. Low-dose heparin. Low threshold to discontinue pharmacotherapy, although Hemoccult has been negative. She denies chest pain, has had no hemoptysis, no unilateral swelling, has no tachycardia. At this time suspicion for PE is low, although low threshold to escalate investigation. Given recent anemia requiring transfusion, iron deficiency, anticoagulation may be risky in case PE/DVT were a concern. Status: Acute (2) Acute encephalopathy: Improved. speaking to her on the phone states she is back to her usual baseline. As above. CT head unremarkable. Mild hyperammonemia? Enlarged level, steatosis. Other parameters not suggestive of liver cirrhosis. Needs to wear BiPAP at night. Highly encouraged her to have formal sleep study done after discharge, possibly follow-up with neurology due to recurrent daytime somnolence in addition to pulmonology due to concern for OHS. Status: Acute (3) Pneumonia: Check MRSA PCR. Right lower lobe. Cannot exclude that this is not aspiration, thus at this time will continue Zosyn, vancomycin due to her recent hospitalization also. Obtain sputum cultures if possible. Urine antigens negative. Check rapid flu. She has been afebrile. She has only minimal cough. She was not assessed during the prior hospitalization, however, COVID-19 suspicion has been low. Status: Acute (4) Congestive heart failure: In negative balance. Continue Lasix at this time. Monitor I&O, renal function. Status: Acute Qualifiers: Heart failure chronicity: acute Heart failure type: unspecified Qualified Code(s): I50.9 - Heart failure, unspecified (5) Respiratory acidosis: Secondary to acute hypercapnic respiratory failure. Status: Acute (6) Morbid obesity: BMI 59.4. Would benefit from discussing weight loss options with PCP in office. Status: Acute (7) Microcytic anemia: Repeat hemoccult negative. Unclear cause for iron deficiency anemia. Will benefit from replacement. Additional evaluation as above. also unsure if ever had a colonoscopy. Recently requiring 2 units PRBC transfusion last week. Unclear source of anemia. Does have iron deficiency. Bedside Hemoccult reported was negative. Monitor hemoglobin closely, currently close to discharge value. Continue PPI. Low threshold discontinue heparin PPx. Status: Acute Additional A&P Information Abnormal troponin: Suspected mismatch demand supply secondary to respiratory failure. Abnormal INR: 1.22. Previously appears closer to normal at 1.1. No clear reason. Is not on anticoagulation. Perhaps some dietary deficiency. Liver parameters otherwise unremarkable. Sodium, platelets appear to be unremarkable. Attestations Medical Necessity Statement*: Continue admission for recurrent severe hypercapneic respiratory failure, hypoxia, PNA, CHF, recurrent encephalopathy. Coding Level of Care Code Acute Registered Nurse Maternity for [facility] Diagnoses Acute respiratory failure J96.00 Acute encephalopathy G93.40 Pneumonia J18.9 Congestive heart failure I50.9 Heart failure chronicity: acute Heart failure type: unspecified Respiratory acidosis E87.2 Morbid obesity E66.01 Microcytic anemia D50.9
--- NOTE | 2019-08-01 10:59 | PC.NURSE ---
Patient this morning was removing her NC, she denies any shortness of breath. Her con't O2 Sat machine showed her O2 evel dropping to 86-88%.. Patient was instructed to take deep breaths, with Sat level returning to 91%. Patient questioned why she had to wear oxygen. She also wanted to remove it while she was eating. Instructed Patient to leave on.
--- NOTE | 2019-08-01 11:30 | PC.SOCIAL ---
IMM Page 2 of IMM given to patient. Initialed, dated, and timed and placed in chart.
[2019-08-01] MEDS: FUROsemide 10 mg/mL SDV 4mL 40 MG IVP (11:53)
--- NOTE | 2019-08-01 18:00 | PC.NURSE ---
Patient set up in chair for two hours. Used Eduardo lift to trans, patient is max assist. 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 Patient agrees she needs to get out of bed and exercise for strengthening.
--- NOTE | 2019-08-01 18:27 | PC.NURSE ---
Patient was noted to have slight drooping to left side of face, left eye not opened as wide, and left corner of mouth slightly drooped. Confusion with her wearing her NC and taking it off was reported as well to Dr. Leary. Patient to have MRI of head tomorrow. Patient has generalized weakness and need max assist for turning, bathing and repositioning. Transfer to chair with steffany lift.
[2019-08-02] VITALS (12 sets, daily range): BP systolic 100–134; BP diastolic 54–73; PULSE 64–87; RESP 17–32; TEMP 36.4–37.3; O2SAT 93–98
[2019-08-02] MEDS: piperacillin-tazobactam 3.375 GM in sodium chloride 0.9% (plus) 50 ML IV ×3 (04:19→20:18)
[2019-08-02 06:28] LABS: Basophils # 0.1 10^3/uL (0.0-0.1); Basophils % 1.5 %; Eosinophils # 0.6 10^3/uL (0.0-0.8); Eosinophils % 7.8 %; Hematocrit 29.5 % (37.0-47.0); Hemoglobin 7.3 g/dL (11.5-15.3); Lymphocytes # 1.1 10^3/uL (0.8-4.8); Lymphocytes % 13.7 %; Mean Corpuscular HGB Conc 24.7 g/dL (30.0-36.0); Mean Corpuscular Hemoglobin 19.2 pg (28.0-34.0); Mean Corpuscular Volume 77.4 fL (81-99); Mean Platelet Volume 11.5 fL (7.4-10.4); Monocytes # 1.2 10^3/uL (0.2-0.9); Monocytes % 15.3 %; Neutrophils % 61.5 %; Nucleated Red Blood Cells % 0.2 %; Platelet Count 196 10^3/cmm (130-400); Positive M 1; Red Blood Count 3.81 10^6/uL (4.1-5.3); Red Cell Distribution Width 23.2 % (12.1-15.1); White Blood Count 8.1 10^3/uL (4.0-10.0)
[2019-08-02 06:45] LABS: Alanine Aminotransferase 7 U/L (0-33); Albumin Level 2.8 g/dL (3.5-5.2); Alkaline Phosphatase 34 IU/L (35-105); Anion Gap 12.1 (5-19); Aspartate Amino Transferase 18 U/L (0-32); Blood Urea Nitrogen 25 mg/dL (8-23); Calcium 8.4 mg/dL (8.5-10.5); Carbon Dioxide 37 mmol/L (22-29); Chloride 92 mmol/L (98-107); Glucose 115 mg/dL (65-115); Osmolality Calculated 282 mOsm/kg (285-295); Potassium 4.1 mmol/L (3.5-5.1); Sodium 137 mmol/L (136-145); Total Bilirubin 0.5 mg/dL (0.15-1.2); Total Protein 5.8 g/dL (6.6-8.7)
[2019-08-02] MEDS: heparin 5,000 unit/mL INJ 1 mL 5000 UNIT SUBCUT ×2 (08:57→20:19)
[2019-08-02] MEDS: pantoprazole DR 40 mg Tablet PO ×2 (08:58→18:15)
[2019-08-02] MEDS: ipratropium-albuterol 3 mL Neb INHALATION ×3 (09:25→20:09)
[2019-08-02] MEDS: FUROsemide 10 mg/mL SDV 4mL 40 MG IVP (10:46)
--- NOTE | 2019-08-02 13:00 | MRR_ITS ---
PROCEDURE INFORMATION: Exam: MR Head Without Contrast Exam date and time: 08/02/2019 12:57 PM Age: 83 years old Clinical indication: Altered mental status/memory loss; Additional info: Daytime somnolence, hypercapnia episodes TECHNIQUE: Imaging protocol: MR of the head without contrast. COMPARISON: CT head wo con* [id number] 07/29/2019 1:05 PM FINDINGS: Brain: Nonspecific increased T2 signal is seen in both cerebral hemispheres and the periventricular region compatible with chronic microvascular ischemic change. No acute infarct. No edema or mass effect. Ventricles: Minimal ventricular dilatation. Bones/joints: Unremarkable. Sinuses: No acute sinusitis. Mastoid air cells: Normal as visualized. No mastoid effusion. Orbits: Unremarkable. Soft tissues: Unremarkable. MR/MR head wo con* [id number] IMPRESSION: No acute findings.
--- NOTE | 2019-08-02 21:51 | P.PN_ITS ---
Subjective Subjective: Interval history: Sitting up in chair after needing Eduardo lift to transfer over with several people's assistance with PT. Awake and alert. Denies any particular complaints, however, has lost quite a bit of her strength and stamina compared to how she was during last hospital admission.. Vitals/I&O/Wt Last Vital Signs Temp 99.2 F 08/02/19 20:00 Pulse 80 08/02/19 20:13 Resp 18 08/02/19 20:10 BP 120/71 08/02/19 20:00 Pulse Ox 94 08/02/19 20:10 08/02/19 08/02/19 08/02/19 06:59 14:59 22:59 Intake Total 250 / 1810 770 / 770 410 / 1180 Balance 250 / -690 770 / 770 410 / 1180 Weight last 48 hrs Weight 152.18 kg Weight 146.984 kg Physical Exam Const: COMMON NORMALS: no acute distress and patient oriented x3 NUTRITIONAL APPEARANCE: obese morbidly obese ORIENTATION/CONSCIOUSNESS: not confused OTHER: Awake and alert. Lucid. HENMT: COMMON NORMALS: oropharynx normal Resp: COMMON NORMALS: normal respiratory effort AUSCULTATION: diminished lung sounds Cardio: COMMON NORMALS: regular rhythm, S1 normal heart sound present, S2 normal heart sound present and No murmurs present (Cardio) RHYTHM: regular rhythm HEART SOUNDS: S1 normal heart sound present and S2 normal heart sound present OTHER: Unable to assess JVD GI: COMMON NORMALS: Normal to inspection, nondistended, normoactive bowel sounds present, Soft to palpation and non-tender PALPATION: Yes Soft to palpation Extremity: COMMON NORMALS: no joint enlargement OTHER: Thick legs with large amount of nonpitting edema Neuro: COMMON NORMALS: patient oriented x3 and moves all extremities Skin: COMMON NORMALS: no rashes or lesions noted GENERAL SKIN EXAM: no rashes or lesions noted Urinary Catheter Management^: La: Cath Placed During This Visit: yes Reason for Continuing Indwelling Catheter: Accurate Measurement of Urinary Output in Critically Ill Patients Urinary Catheter Date of Insertion: 07/27/19 Urinary Catheter Time of Insertion: 18:40 Data : 08/02/19 06:10 08/02/19 06:10 A&P Assessment and plan (1) Acute respiratory failure: This appears to have stabilized somewhat without severe swings that were witnessed on presentation, now that she is also willingly wearing oxygen, as well as were trilogy last night. She is very deconditioned, and definitely would benefit from rehabilitation. Discussed with her regarding admission to [facility] where she could continue trilogy as well, until she can discharge home and get her own machine. Needs formal sleep study and formal spirometry. Suspected central sleep apnea. Suspected OHS. Needs follow-up with pulmonology. Please continue to reinforce absolute requirement to wear her trilogy, otherwise life-threatening hypercapnia and hypoxia are an issue. She does not appear to be aware of either, and now is somewhat better adherent, but initially showed almost complete this regard as to how serious her condition had gotten on several occasions with severe hypercapnia, apnea, hypoxia. CT C/A/P w contrast w small bilat pl effusions, bibasilar atelectasis, lge hiatal hernia. No inflammatory process, cholecystectomy, renal cysts, mild hydronephrosis without obstruction. Diverticulosis. No acute findings on noncontrast MRI brain. Icepack test was negative and NIF greater than 60. Requested for basic bedside spirometry. Other tests are not suggestive of etiology. TSH has been normal. Electrolytes normal. Mg and phos normal. UA repeated without sign of UTI. Does have some hematuria. Possibly from catheter. Would reassess after some time and if still present consider follow up w urology. Consider endoscopic evaluation on outpatient side for iron deficiency anemia. Due to severity of hypercapnia episodes this may require intubation. Discussed with her and her need to wear BiPAP. She reportedly has had some nasal fracture, although discussed that different masks available may avoid irritating the old injury. Today states has tolerated the mask better but bothered by noise. Unclear significance of ammonia elevation up to 58, currently is down to normal. She is currently lucid, although still difficult to say that it may be related to that given minimal elevation. Has fatty liver infiltration with liver enlargement, although ocular parameters are not suggestive of cirrhosis or fibrosis. Consider repeating if she ever again develops episode of lethargy/hypercapnia. Continue Lasix for CHF. Status: Acute (2) Acute encephalopathy: Improved with BiPAP support with sleep, oxygen. Mental status at baseline. As above. Status: Acute (3) Pneumonia: MRSA PCR. Vancomycin discontinued. Right lower lobe. Zosyn. Possible aspiration. Obtain sputum cultures if possible. Urine antigens negative. Rapid flu neg. She has been afebrile. She has minimal cough. She was not assessed during the prior hospitalization, however, COVID-19 suspicion has been low. Status: Acute (4) Congestive heart failure: In negative balance. Continue Lasix at this time. Monitor I&O, renal function. Status: Acute Qualifiers: Heart failure chronicity: acute Heart failure type: unspecified Qualified Code(s): I50.9 - Heart failure, unspecified (5) Respiratory acidosis: Secondary to acute hypercapnic respiratory failure. Status: Acute (6) Morbid obesity: BMI 59.4. Would benefit from discussing weight loss options with PCP in office. Status: Acute (7) Microcytic anemia: Repeat hemoccult negative. Unclear cause for iron deficiency anemia. Will benefit from replacement. Additional evaluation as above. also unsure if ever had a colonoscopy. Recently requiring 2 units PRBC transfusion last week. Unclear source of anemia. Does have iron deficiency. Bedside Hemoccult reported was negative. Monitor hemoglobin closely, currently close to discharge value. Continue PPI. Low threshold discontinue heparin PPx. Status: Acute Additional A&P Information Abnormal troponin: Suspected mismatch demand supply secondary to respiratory failure. Abnormal INR: 1.22. Previously appears closer to normal at 1.1. No clear reason. Is not on anticoagulation. Perhaps some dietary deficiency. Liver parameters otherwise unremarkable. Sodium, platelets appear to be unremarkable. Attestations Medical Necessity Statement*: Continue admission for discharge arrangements including noninvasive ventilator due to otherwise life-threatening respiratory failure with hypoxia, hypercapnia with sleep, placement to halfway facility for rehabilitation due to severe deconditioning, with extreme obesity, need for Eduardo lift and assistance of multiple people with repositioning, transfers. Treatment of CHF, pneumonia. Coding Level of Care Code Acute Online Journalist for [facility] Diagnoses Acute respiratory failure J96.00 Acute encephalopathy G93.40 Pneumonia J18.9 Congestive heart failure I50.9 Heart failure chronicity: acute Heart failure type: unspecified Respiratory acidosis E87.2 Morbid obesity E66.01 Microcytic anemia D50.9
[2019-08-03] VITALS (12 sets, daily range): BP systolic 97–121; BP diastolic 58–73; PULSE 67–84; RESP 18–24; TEMP 36.6–36.9; O2SAT 90–95
[2019-08-03] MEDS: ipratropium-albuterol 3 mL Neb INHALATION ×4 (02:02→21:24)
[2019-08-03] MEDS: piperacillin-tazobactam 3.375 GM in sodium chloride 0.9% (plus) 50 ML IV ×3 (04:16→20:00)
[2019-08-03 05:38] LABS: Basophils # 0.1 10^3/uL (0.0-0.1); Basophils % 1.1 %; Eosinophils # 0.7 10^3/uL (0.0-0.8); Eosinophils % 7.7 %; Hematocrit 29.2 % (37.0-47.0); Hemoglobin 7.3 g/dL (11.5-15.3); Lymphocytes # 1.2 10^3/uL (0.8-4.8); Lymphocytes % 13.6 %; Mean Platelet Volume 10.9 fL (7.4-10.4); Monocytes # 1.4 10^3/uL (0.2-0.9); Monocytes % 15.1 %; Neutrophils # 5.6 10^3/uL (1.8-7.7); Neutrophils % 62.2 %; Nucleated Red Blood Cells % 0 %; Platelet Count 189 10^3/cmm (130-400); Red Blood Count 3.84 10^6/uL (4.1-5.3); Red Cell Distribution Width 23.4 % (12.1-15.1)
[2019-08-03 05:53] LABS: Alanine Aminotransferase 8 U/L (0-33); Alkaline Phosphatase 33 IU/L (35-105); Anion Gap 11.3 (5-19); Aspartate Amino Transferase 21 U/L (0-32); Blood Urea Nitrogen 28 mg/dL (8-23); Calcium 8.6 mg/dL (8.5-10.5); Carbon Dioxide 39 mmol/L (22-29); Chloride 95 mmol/L (98-107); Glucose 129 mg/dL (65-115); Osmolality Calculated 291 mOsm/kg (285-295); Potassium 4.3 mmol/L (3.5-5.1); Sodium 141 mmol/L (136-145); Total Bilirubin 0.5 mg/dL (0.15-1.2)
[2019-08-03] MEDS: pantoprazole DR 40 mg Tablet PO ×2 (08:59→17:03)
[2019-08-03] MEDS: heparin 5,000 unit/mL INJ 1 mL 5000 UNIT SUBCUT ×2 (08:59→19:58)
[2019-08-03] MEDS: FUROsemide 10 mg/mL SDV 4mL 40 MG IVP (10:04)
--- NOTE | 2019-08-03 10:15 | PM.PN ---
Subjective Subjective: Interval history: Patient feeling better today. She was actually able to help herself get out of bed. Did not require the Eduardo lift. Feels overall stronger. In talking with her she had not been taking her Lasix at home because family was staying with her and she did not want to make a mass. I explained to her that that probably contributed to her re-presentation this time. We also discussed the trilogy. She made it until 230 or 3:00 with a mask on. Encouraged her to continue wearing as long as she could tolerate and reviewed that wearing it what ever time she can tolerate should help her in the long-term. She is agreeable to continuing to try. She indicated that she may want to consider going home but we talked about the fact that she has been extremely weak with today being the first day she has been able to do anything on her own in quite some time. I think it would behoove her to have skilled placement for at least a little while while she continues to adjust her trilogy and arrangements can be made for outpatient sleep study. Additionally this would allow continued monitoring of overall volume status while on diuretic therapy. She is agreeable to this plan presently. Medications: Reviewed: Yes Vitals/I&O/Wt Last Vital Signs Temp 98.4 F 08/03/19 07:19 Pulse 84 08/03/19 09:39 Resp 18 08/03/19 09:39 BP 121/69 08/03/19 07:19 Pulse Ox 95 08/03/19 09:39 08/02/19 08/03/19 08/03/19 22:59 06:59 14:59 Intake Total 410 / 1180 700 / 1880 360 / 360 Output Total 0 / 0 1875 / 1875 Balance 410 / 1180 -1175 / 5 360 / 360 Weight last 48 hrs Weight 151.001 kg Weight 152.18 kg Physical Exam Const: OTHER: Alert, oriented x3, cooperative HENMT: OTHER: Normocephalic atraumatic, moist mucus membranes Neck/C-Spine: OTHER: Large but supple Resp: OTHER: Scattered wheezes, no accessory muscle use, clears with cough Cardio: OTHER: Distant heart sounds regular rhythm GI: OTHER: Abdomen soft, obese, nontender : OTHER: La catheter noted Extremity: NARRATIVE EXTREMITY EXAM: Lower extremities are puffy with 1-2+ pitting edema Neuro: OTHER: Face symmetric, speech clear, moves all extremities Psych: OTHER: Normal affect Skin: OTHER: Chronic stasis changes, compression stockings in place scattered bruises Urinary Catheter Management^: La: Cath Placed During This Visit: yes Reason for Continuing Indwelling Catheter: Accurate Measurement of Urinary Output in Critically Ill Patients Urinary Catheter Date of Insertion: 07/27/19 Urinary Catheter Time of Insertion: 18:40 Data : 08/03/19 05:05 08/03/19 05:05 Other data: Patient has had MRI of the head to evaluate for central cause of apnea as well as chest abdomen and pelvis CT during the hospital stay. Had multiple chest x-rays, CT of the head and an abdominal ultrasound. A&P Assessment and plan (1) Acute respiratory failure: On chronic respiratory failure. Has combination of obstructive sleep apnea and strongly suspected obesity hypoventilation syndrome in addition to chronic diastolic CHF. Patient is a non-smoker and COPD is felt unlikely. Neuromuscular weakness is also within the differential. Has improved significantly with trilogy. Hypercapnia is most likely the primary bobtail driver of hypoxemic events. Cannot rule out a component of neuromuscular weakness. Associated chronic respiratory acidosis. Status: Acute Qualifiers: Respiratory failure complication: hypoxia and hypercapnia Qualified Code(s): J96.01 - Acute respiratory failure with hypoxia; J96.02 - Acute respiratory failure with hypercapnia (2) Acute encephalopathy: Secondary to hypercapnia and hypoxemia, improved Status: Acute (3) Pneumonia: Presumptive diagnosis during hospital stay, imaging studies not conclusive. Covered empirically for possibility of aspiration pneumonia due to right lower lobe changes. COVID-19 was not detected, cultures have been negative, influenza was negative and urine antigens were negative Status: Acute (4) Congestive heart failure: Body habitus precludes specific determination of type though suspect diastolic based on clinical history Status: Acute Qualifiers: Heart failure chronicity: acute Heart failure type: unspecified Qualified Code(s): I50.9 - Heart failure, unspecified (5) Microcytic anemia: Suspect iron deficiency, hemoglobin stable, no obvious blood loss Status: Acute (6) Morbid obesity: With BMI 59 Status: Acute Additional A&P Information Stop antibioticsAbnormal troponin: Suspected mismatch demand supply secondary to respiratory failure Large hiatal hernia noted on imaging Abnormal INR: 1.22. Previously appears closer to normal at 1.1. No specific etiology presently Encouraged her to continue using trilogy Breathing treatments as needed We will discuss with social sciences lecturer where we are on arranging trilogy Awaiting decision by Adriana Miller Patient would benefit from some skilled placement short-term while she is getting more used to trilogy device as well as for close monitoring of volume status with continued diuretic use. She had not been taking her diuretic at home due to difficulty cleaning herself up. Some of that is because family was staying with her and some of it is probably part of her usual pattern as well. I think that she would benefit from close monitoring with continued treatment however she has improved from yesterday to today such that she may not actually qualify. She is aware of that and home health will be a secondary option. Stop antibiotics as patient has received a week of treatment Transition to oral diuretics, will put her on 40 a day rather than the 20 a day that she had been prescribed there will need monitoring for further adjustment down the road Continue PT and OT On Lovenox for DVT prophylaxis Resume home iron, check iron level in the morning Hold home vitamin C secondary to potential for GI losses On twice daily PPI which is a home medication Would benefit from endoscopy when medically stable from respiratory standpoint If continues to have significant respiratory issues will consider transfusion of 1 unit of blood next hospital stay and see if she has any improvement Outpatient follow-up with Dr. Burnett We will need sleep study and pulmonary function studies outpatient Supportive care otherwise Plans discussed with patient and she was given an opportunity to ask questions Full code Attestations Medical Necessity Statement*: Requires ongoing inpatient stay will be continue to adjust medications as noted and work on arranging disposition plans, losing trilogy device Coding Level of Care Code Acute Chip Machine Operator for [facility] Diagnoses Acute respiratory failure J96.01; J96.02 Respiratory failure complication: hypoxia and hypercapnia Acute encephalopathy G93.40 Pneumonia J18.9 Congestive heart failure I50.9 Heart failure chronicity: acute Heart failure type: unspecified Microcytic anemia D50.9 Morbid obesity E66.01
--- NOTE | 2019-08-03 11:36 | DCPLANNER ---
Pg 2 of IM updated and reviewed with pt. re-enforcement likely needed, copy provided.
[2019-08-04] VITALS (16 sets, daily range): BP systolic 118–139; BP diastolic 61–81; PULSE 71–92; RESP 18–20; TEMP 36.4–36.8; O2SAT 84–96
[2019-08-04] MEDS: ipratropium-albuterol 3 mL Neb INHALATION ×5 (01:38→20:49)
[2019-08-04 05:50] LABS: Basophils # 0.1 10^3/uL (0.0-0.1); Basophils % 1.2 %; Eosinophils # 0.8 10^3/uL (0.0-0.8); Eosinophils % 8.4 %; Hematocrit 29.9 % (37.0-47.0); Hemoglobin 7.4 g/dL (11.5-15.3); Lymphocytes # 1.5 10^3/uL (0.8-4.8); Lymphocytes % 16.1 %; Mean Corpuscular HGB Conc 24.7 g/dL (30.0-36.0); Mean Corpuscular Hemoglobin 19.1 pg (28.0-34.0); Mean Corpuscular Volume 77.3 fL (81-99); Mean Platelet Volume 11.6 fL (7.4-10.4); Monocytes # 1.3 10^3/uL (0.2-0.9); Monocytes % 14.7 %; Neutrophils # 5.4 10^3/uL (1.8-7.7); Neutrophils % 59.2 %; Nucleated Red Blood Cells % 0 %; Platelet Count 205 10^3/cmm (130-400); Red Blood Count 3.87 10^6/uL (4.1-5.3); Red Cell Distribution Width 23.3 % (12.1-15.1); White Blood Count 9.1 10^3/uL (4.0-10.0)
[2019-08-04 06:13] LABS: Alanine Aminotransferase 8 U/L (0-33); Albumin Level 2.8 g/dL (3.5-5.2); Alkaline Phosphatase 34 IU/L (35-105); Anion Gap 12.1 (5-19); Aspartate Amino Transferase 18 U/L (0-32); Blood Urea Nitrogen 23 mg/dL (8-23); Calcium 9.4 mg/dL (8.5-10.5); Carbon Dioxide 39 mmol/L (22-29); Chloride 93 mmol/L (98-107); Globulin 3.6 g/dL (1.3-4.6); Glucose 124 mg/dL (65-115); Magnesium 2.3 mg/dL (1.7-2.3); Osmolality Calculated 288 mOsm/kg (285-295); Potassium 4.1 mmol/L (3.5-5.1); Sodium 140 mmol/L (136-145); Total Bilirubin 0.4 mg/dL (0.15-1.2); Total Protein 6.4 g/dL (6.6-8.7)
[2019-08-04 06:21] LABS: Iron 20 ug/dL (37-145); Percent Saturation 5.9 % (20-50); Total Iron Binding Capacity 335 mcg/dl; Unsaturated Iron Binding 315 ug/dL (112-347)
[2019-08-04 06:30] LABS: Slide Review Slide Review Perform
[2019-08-04] MEDS: heparin 5,000 unit/mL INJ 1 mL 5000 UNIT SUBCUT ×2 (07:58→19:24)
[2019-08-04] MEDS: FUROsemide 40 mg Tablet PO (07:58)
[2019-08-04] MEDS: pantoprazole DR 40 mg Tablet PO ×2 (08:01→18:01)
[2019-08-04] MEDS: iron polysaccharide complex 150 mg Capsule PO (08:01)
--- NOTE | 2019-08-04 08:46 | PM.PN ---
Subjective Subjective: Interval history: Patient overall doing better today. Feels a bit stronger. Getting ready to get up with physical therapy. Have ordered for La catheter to be removed. Depending on how she does she may have improved enough to be able to go home with home health. Will evaluate later today to determine. I have placed orders for home health in anticipation of this likely being planned. Full note to follow later today Vitals/I&O/Wt Last Vital Signs Temp 98.0 F 08/04/19 08:00 Pulse 74 08/04/19 08:00 Resp 18 08/04/19 08:00 BP 119/67 08/04/19 08:00 Pulse Ox 93 08/04/19 08:00 08/03/19 08/04/19 08/04/19 22:59 06:59 14:59 Intake Total 290 / 940 Output Total 350 / 1950 750 / 2700 300 / 300 Balance -60 / -1010 -750 / -1760 -300 / -300 Weight last 48 hrs Weight 151.755 kg Weight 151.001 kg Physical Exam Urinary Catheter Management^: La: Cath Placed During This Visit: yes, but has since been removed by the nurse Reason for Continuing Indwelling Catheter: Decision to DC Catheter Urinary Catheter Date of Insertion: 07/27/19 Urinary Catheter Time of Insertion: 18:40 Date Urinary Catheter Removed: 08/04/19 Time Urinary Catheter Discontinued: 08:42 Data : 08/04/19 04:45 08/04/19 04:45 Attestations Medical Necessity Statement*: Currently evaluating if patient has improved enough to be able to consider discharge home with home health. Disposition plans are in the works. 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
--- NOTE | 2019-08-04 21:56 | P.PN_ITS ---
Subjective Subjective: Interval history: Patient has done well throughout the day today. Patient was officially declined from [facility]. I spoke with physical therapy and she is helping herself better and requiring about 25% assistance. With arrangements for bedside commode, walker and other home care needs, they do feel she can probably continue therapy in the home setting. Patient has been treated with a trilogy device here but does not meet criteria for home trilogy device presently. Working on trying to get BiPAP arranged at home based on PCO2 criteria. Given significant hypercapnia and degree of apnea patient really needs device. Arrangements are underway for outpatient sleep study and PFTs along with follow-up to Dr. Burnett. Vitals/I&O/Wt Last Vital Signs Temp 97.8 F 08/04/19 19:34 Pulse 83 08/04/19 20:53 Resp 18 08/04/19 20:50 BP 124/61 08/04/19 19:34 Pulse Ox 92 08/04/19 20:50 08/04/19 08/04/19 08/04/19 06:59 14:59 22:59 Intake Total 240 / 240 360 / 600 Output Total 750 / 2700 300 / 300 1 / 301 Balance -750 / -1760 -60 / -60 359 / 299 Weight last 48 hrs Weight 151.755 kg Weight 151.001 kg Physical Exam Const: OTHER: Alert, oriented x3, cooperative HENMT: OTHER: Moist mucus membranes Neck/C-Spine: OTHER: Large but supple Resp: OTHER: Clear to auscultation today without any wheezes noted Cardio: OTHER: Distant heart sounds with regular rhythm GI: OTHER: Abdomen soft, obese, nontender : OTHER: La catheter discontinued today Extremity: NARRATIVE EXTREMITY EXAM: Lower extremities with some decrease in edema today Neuro: OTHER: Face symmetric, speech clear, moves all extremities Psych: OTHER: Normal affect Skin: OTHER: Chronic stasis changes, compression stockings in place scattered bruises Urinary Catheter Management^: La: Cath Placed During This Visit: yes, but has since been removed by the nurse Reason for Continuing Indwelling Catheter: Decision to DC Catheter Urinary Catheter Date of Insertion: 07/27/19 Urinary Catheter Time of Insertion: 18:40 Date Urinary Catheter Removed: 08/04/19 Time Urinary Catheter Discontinued: 08:42 Data : 08/04/19 04:45 08/04/19 04:45 A&P Assessment and plan (1) Acute respiratory failure: On chronic respiratory failure. 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 Patient is a non-smoker and COPD is felt unlikely. Neuromuscular weakness is also within the differential. Has improved significantly with trilogy but does not meet requirements for home device presen tly. Hypercapnia is most likely the primary high lift driver of hypoxemic events. Working on seeing if we can get BiPAP at home. Cannot rule out a component of neuromuscular weakness but does not appear to be primary at the moment. Has associated chronic respiratory acidosis. Status: Acute Qualifiers: Respiratory failure complication: hypoxia and hypercapnia Qualified Code(s): J96.01 - Acute respiratory failure with hypoxia; J96.02 - Acute respiratory failure with hypercapnia (2) Acute encephalopathy: Secondary to hypercapnia and hypoxemia, resolved Status: Resolved (3) Pneumonia: Presumptive diagnosis during hospital stay, imaging studies not conclusive. Covered empirically for possibility of aspiration pneumonia due to right lower lobe changes. COVID-19 was not detected, cultures have been negative, influenza was negative and urine antigens were negative Status: Acute (4) Congestive heart failure: Body habitus precludes specific determination of type though suspect diastolic based on clinical history Status: Acute Qualifiers: Heart failure chronicity: acute Heart failure type: unspecified Qualified Code(s): I50.9 - Heart failure, unspecified (5) Microcytic anemia: Suspect iron deficiency, hemoglobin stable, no obvious blood loss, will need to be monitored for worsening given respiratory issues Status: Acute (6) Morbid obesity: With BMI 59 Status: Acute Additional A&P Information Abnormal troponin: Suspected mismatch demand supply secondary to respiratory failure Large hiatal hernia noted on imaging Abnormal INR: 1.22. Previously appears closer to normal at 1.1. No specific etiology presently Patient again encouraged to use trilogy or alternative device with sleep Working on arranging BiPAP at home Breathing treatments as needed Current plan is for discharge with home health including home health aide, PT and OT along with prison Continue oral diuretics at increased dose although will need monitoring of renal function and blood pressures along with urine output Continue PT and OT On Lovenox for DVT prophylaxis On home iron, level quite low with percent saturation 5.9%, will give 1 dose of Venofer Hold home vitamin C secondary to potential for GI losses On twice daily PPI which is a home medication Would benefit from endoscopy when medically stable from respiratory standpoint If respiratory status worsens, consider transfusion of 1 unit of blood Outpatient follow-up with Dr. Burnett We will need sleep study and pulmonary function studies outpatient, both of which are ordered Supportive care otherwise Plans discussed with patient and she was given an opportunity to ask questions With patient's as well. Full code Attestations Medical Necessity Statement*: Requires ongoing inpatient stay until we can arrange safe disposition. Plans are as noted. Coding Level of Care Code Acute Roustabout Supervisor for Aleksandrag Fwd Diagnoses Acute respiratory failure J96.01; J96.02 Respiratory failure complication: hypoxia and hypercapnia Acute encephalopathy G93.40 Pneumonia J18.9 Congestive heart failure I50.9 Heart failure chronicity: acute Heart failure type: unspecified Microcytic anemia D50.9 Morbid obesity E66.01
--- NOTE | 2019-08-04 22:08 | PC.NURSE ---
Patient incontinent of urine, large amount of urine in pads.
[2019-08-04] MEDS: iron sucrose 200 MG in sodium chloride 0.9% (100 ml) 100 ML 220 MG IV (22:43)
[2019-08-05] VITALS (15 sets, daily range): BP systolic 117–148; BP diastolic 61–76; PULSE 62–89; RESP 18–24; TEMP 36.6–37; O2SAT 91–100
[2019-08-05] MEDS: ipratropium-albuterol 3 mL Neb INHALATION ×4 (02:40→20:12)
[2019-08-05 05:57] LABS: Basophils # 0.1 10^3/uL (0.0-0.1); Basophils % 1.3 %; Eosinophils # 0.7 10^3/uL (0.0-0.8); Eosinophils % 7.4 %; Hematocrit 30.1 % (37.0-47.0); Hemoglobin 7.5 g/dL (11.5-15.3); Lymphocytes # 1.2 10^3/uL (0.8-4.8); Mean Corpuscular HGB Conc 24.9 g/dL (30.0-36.0); Mean Corpuscular Hemoglobin 19.3 pg (28.0-34.0); Mean Corpuscular Volume 77.6 fL (81-99); Monocytes # 1.3 10^3/uL (0.2-0.9); Monocytes % 14.6 %; Neutrophils # 5.7 10^3/uL (1.8-7.7); Neutrophils % 63.4 %; Nucleated Red Blood Cells % 0 %; Platelet Count 203 10^3/cmm (130-400); Positive M 1; Red Blood Count 3.88 10^6/uL (4.1-5.3); Red Cell Distribution Width 23.5 % (12.1-15.1)
[2019-08-05 06:11] LABS: Alanine Aminotransferase 11 U/L (0-33); Alkaline Phosphatase 35 IU/L (35-105); Anion Gap 11.5 (5-19); Aspartate Amino Transferase 27 U/L (0-32); Blood Urea Nitrogen 22 mg/dL (8-23); Calcium 9.4 mg/dL (8.5-10.5); Carbon Dioxide 39 mmol/L (22-29); Chloride 95 mmol/L (98-107); Globulin 3.5 g/dL (1.3-4.6); Glucose 129 mg/dL (65-115); Osmolality Calculated 290 mOsm/kg (285-295); Potassium 4.5 mmol/L (3.5-5.1); Sodium 141 mmol/L (136-145); Total Bilirubin 0.4 mg/dL (0.15-1.2); Total Protein 6.5 g/dL (6.6-8.7)
[2019-08-05 06:28] LABS: Slide Review Slide Review Perform
[2019-08-05] MEDS: FUROsemide 40 mg Tablet PO (08:26)
[2019-08-05] MEDS: iron polysaccharide complex 150 mg Capsule PO (08:26)
[2019-08-05] MEDS: heparin 5,000 unit/mL INJ 1 mL 5000 UNIT SUBCUT ×2 (08:27→20:33)
[2019-08-05] MEDS: pantoprazole DR 40 mg Tablet PO ×2 (08:27→17:30)
--- NOTE | 2019-08-05 10:50 | PC.SOCIAL ---
IMM Updated Page 2 of IMM updated and given to patient. Initialed, dated, and timed and placed back in chart.
--- NOTE | 2019-08-05 15:03 | PC.SOCIAL ---
per Dr Burnett can enter order for PFT with spirometry. Per Nery with [facility] this can be done in the am since she just had a nebulizer treatment. Order entered for am with diagnosis of Obesity hypoventilation syndrome per Dr Burnett order.
--- NOTE | 2019-08-05 18:40 | P.PN_ITS ---
Subjective Subjective: Interval history: Patient continues to improve daily. She is doing a little bit more by herself. She says that she wore the trilogy for couple of hours last night. Again encouraged to continue increasing the time that she is on the device. She does admit to feeling better. I have spoken with case management several times today regarding disposition planning. The challenge in this case is that she will almost assuredly be back in the hospital quickly without addressing her significant hypercapnia. She has responded very well to trilogy device comparatively versus BiPAP that was initially started. Work-up is ongoing to facilitate arrangements for home use. Again patient was declined from facilities. Medications: Reviewed: Yes Vitals/I&O/Wt Last Vital Signs Temp 98.4 F 08/05/19 15:59 Pulse 76 08/05/19 15:59 Resp 22 H 08/05/19 15:59 BP 138/68 08/05/19 15:59 Pulse Ox 95 08/05/19 15:59 08/05/19 08/05/19 08/05/19 06:59 14:59 22:59 Intake Total 600 / 600 Output Total 400 / 901 Balance -400 / -301 600 / 600 Weight last 48 hrs Weight 152.124 kg Weight 151.755 kg Physical Exam Const: OTHER: Alert, oriented x3, cooperative, overall looks better than she has Neck/C-Spine: OTHER: Large but supple Resp: OTHER: Clear to auscultation Cardio: OTHER: Distant heart soundsbut regular rhythm GI: OTHER: Abdomen soft, obese, nontender Extremity: NARRATIVE EXTREMITY EXAM: Lower extremities with slightly decreased edema Neuro: OTHER: Face symmetric, speech clear, moves all extremities Psych: OTHER: Normal affect Skin: OTHER: Chronic stasis changes, compression stockings in place Urinary Catheter Management^: La: Cath Placed During This Visit: yes, but has since been removed by the nurse Reason for Continuing Indwelling Catheter: Decision to DC Catheter Urinary Catheter Date of Insertion: 07/27/19 Urinary Catheter Time of Insertion: 18:40 Date Urinary Catheter Removed: 08/04/19 Time Urinary Catheter Discontinued: 08:42 Data : 08/05/19 05:28 08/05/19 05:28 A&P Assessment and plan (1) Acute respiratory failure: On chronic respiratory failure. Has combination of obstructive sleep apnea and strongly suspected obesity hypoventilation syndrome in addition to chronic diastolic CHF. Patient is a non-smoker and COPD is felt unlikely. Neuromuscular weakness is also within the differential. Has improved significantly with trilogy but does not meet requirements for home device presently. 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 Working on seeing if we can get BiPAP at home. Cannot rule out a component of neuromuscular weakness. Has associated chronic respiratory acidosis. Status: Acute Qualifiers: Respiratory failure complication: hypoxia and hypercapnia Qualified Code(s): J96.01 - Acute respiratory failure with hypoxia; J96.02 - Acute respiratory failure with hypercapnia (2) Acute encephalopathy: Secondary to hypercapnia and hypoxemia, resolved Status: Resolved (3) Pneumonia: Presumptive diagnosis during hospital stay, imaging studies not conclusive. Covered empirically for possibility of aspiration pneumonia due to right lower lobe changes. COVID-19 was not detected, cultures have been negative, influenza was negative and urine antigens were negative Status: Acute (4) Congestive heart failure: Body habitus precludes specific determination of type though suspect diastolic based on clinical history Status: Acute Qualifiers: Heart failure chronicity: acute Heart failure type: unspecified Qualified Code(s): I50.9 - Heart failure, unspecified (5) Microcytic anemia: Suspect iron deficiency, hemoglobin stable, no obvious blood loss, will need to be monitored for worsening given respiratory issues Status: Acute (6) Morbid obesity: With BMI 59 Status: Acute Additional A&P Information Abnormal troponin: Suspected mismatch demand supply secondary to respiratory failure Large hiatal hernia noted on imaging Abnormal INR: 1.22. Previously appears closer to normal at 1.1. No specific etiology presently We are continuing to work on noninvasive device for home use to facilitate janene gement of respiratory issues PFTs with spirometry ordered for in the morning Has been on trilogy device as she actually worsened after BiPAP was ordered and required transfer to the ICU. Has improved since then and is gradually increasing the amount of time that she wears the trilogy. She is more alert and functionally able to do more for herself since that time. Current plan is for discharge with home health including home health aide, PT and OT along with fpc once we get device arranged so long as no other acute issues arise in the interim We will need home oxygen as well. Have reviewed with patient again the importance of utilizing the device as described Continue breathing treatments as needed Continue oral diuretics at increased dose, tolerating thus far with continued n egative fluid balance Continue PT and OT On Lovenox for DVT prophylaxis On home iron, level quite low with percent saturation 5.9%, status post 1 dose of Venofer Off of home vitamin C secondary to potential for GI losses On twice daily PPI which is a home medication Would benefit from endoscopy when medically stable from respiratory standpoint If respiratory status worsens, consider transfusion of 1 unit of blood Outpatient follow-up with Dr. Burnett Sleep study and pulmonary function studies currently ordered for outpatient Supportive care otherwise Plans discussed with patient and she was given an opportunity to ask questions Reviewed with patient's last night Full code Attestations Medical Necessity Statement*: Requires ongoing inpatient stay we continue to address home plans for respiratory management. Plans are as noted above. 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
[2019-08-06] VITALS (11 sets, daily range): BP systolic 100–119; BP diastolic 54–60; PULSE 71–84; RESP 16–24; TEMP 36.7–37.2; O2SAT 92–96
[2019-08-06] MEDS: ipratropium-albuterol 3 mL Neb INHALATION ×3 (02:36→15:19)
[2019-08-06] MEDS: FUROsemide 40 mg Tablet PO (08:12)
[2019-08-06] MEDS: iron polysaccharide complex 150 mg Capsule PO (08:13)
[2019-08-06] MEDS: pantoprazole DR 40 mg Tablet PO (08:13)
[2019-08-06] MEDS: heparin 5,000 unit/mL INJ 1 mL 5000 UNIT SUBCUT (08:13)
--- NOTE | 2019-08-06 09:27 | PC.RESP ---
nif x 3 attempts -50,-55,-60+ good effort
--- NOTE | 2019-08-06 09:48 | PFTS_ITS ---
Date of Study:08/06/19 Date of Dictation: MECHANICS: Forced vital capacity (FVC) is reduced. Forced expiratory volume in one second (FEV1) is reduced. FEV1/FVC is normal. FLOW VOLUME LOOP: Narrow. LUNG VOLUMES: Not performed DIFFUSING CAPACITY FOR CARBON MONOXIDE: Not performed INTERPRETATION: Spirometry is consistent with severe restriction. MTDD
--- NOTE | 2019-08-06 12:55 | PM.MISC ---
Miscellaneous Note Purpose of Documentation: Review of the pulmonary function test Note: I have reviewed the patient spirometry that was obtained this morning. Her FEV1 FVC ratio is 76% with FEV1 1.57 L which is 31% of predicted and forced vital capacity is 0.75 L which is 31% operated. The spirometry is consistent with severe restriction. The patient also had negative inspiratory force measurements. The 3 measurements were -55, -55 and -60 cm of water pressure. Although this is not severely diminished inspiratory force. There is definite if reduction in the inspiratory force. 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
--- NOTE | 2019-08-06 16:09 | PM.DCS ---
Discharge Providers Date of Admission: 07/27/19 14:54 Date of Discharge: August 06, 2019 Attending Provider at Admission: Harsh Leary Attending Provider at Discharge: Sabine Hawley MD Primary Care Provider: Estuardo Lara MD Diagnoses at Discharge Discharge Diagnosis (1) Acute respiratory failure: Status: Resolved Qualifiers: Respiratory failure complication: hypoxia and hypercapnia Qualified Code(s): J96.01 - Acute respiratory failure with hypoxia; J96.02 - Acute respiratory failure with hypercapnia (2) Acute encephalopathy: Status: Resolved Problem details: Metabolic from hypercapnia (3) Pneumonia: Status: Ruled-out (4) Congestive heart failure: Status: Acute Qualifiers: Heart failure chronicity: acute on chronic Heart failure type: diastolic Qualified Code(s): I50.33 - Acute on chronic diastolic (congestive) heart failure (5) Microcytic anemia: Status: Acute Problem details: Secondary to iron deficiency (6) Morbid obesity: Status: Acute (7) Large hiatal hernia: Status: Acute Reason for Visit Reason for Visit: abnormal labs Hospital Course Hospital Course: Mrs. Bourgeois presented to the emergency room after being seen by her primary care provider. She was very short of breath and noted to have oxygen saturation into the 70s. She was sent to the emergency room for further evaluation. She had been in the hospital recently but was very lethargic. Initial blood gas showed 7.28/71/64. She had an elevated BNP, mild elevation in troponin and other laboratory studies that were abnormal as well as her right lower lobe opacity noted on chest x-ray concerning for pneumonia. She was admitted for further care. She was treated initially in the ICU with BiPAP support, antibiotics and diuretics. With BiPAP she initially recovered but later had recurrent significant hypercapnia again requiring noninvasive intervention. Pulmonology was consulted. During the course of the hospital stay, patient had negative COVID-19 testing. 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 Arrangements were ultimately made for home trilogy device. Further work-up on an outpatient basis is ongoing. CT of the chest showed some small bilateral effusions and bibasilar atelectasis versus infiltrate. Also noted was a large hiatal hernia. Abdomen and pelvis revealed some bilateral parapelvic renal cyst versus mild hydronephrosis but no obstructive lesions. No acute inflammatory process was identified. She did have diverticulosis without diverticulitis. She had an MRI of her head which showed no acute findings. This was done due to evaluation for possible central apnea process. He had some elevation in liver enzymes and was found to have ultrasound study showing hepatomegaly with fatty infiltration of the liver. Initially patient could not take care of her own activities of daily living and it was thought that she would require skilled placement. After getting on the trilogy device and managing to wear it for at least a few hours every night, she started to have improved strength. Ultimately was felt that she could go home with ongoing care. Home health was arranged and equipment necessary at home was also ordered. Acute on chronic respiratory failure with hypercapnia and hypoxia is felt multifactorial related to chronic diastolic CHF, possible obesity hypoventilation and suspected obstructive sleep apnea. 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 As previously stated home trilogy device was arranged. I discussed with her repeatedly the importance of compliance with this device otherwise she would end up back in the hospital again. I also discussed this with her by telephone. Patient did receive empiric antibiotics for possibility of pneumonia in the right lower lobe but cultures were negative. In addition to COVID-19 testing which was negative, influenza was negative and urine antigens were negative. I think this area was probably more atelectasis. She did have evidence of some iron deficiency but no ongoing blood loss. She received a dose of Venofer in the hospital. Hemoglobin was at the low range. Should she continue to have significant respiratory issues will consider transfusion of blood. She would benefit from outpatient endoscopy at some point if her respiratory status will allow. She had an elevated troponin that was felt due to mismatch demand. She did not have a significant delta. In addition to the trilogy, home oxygen was arranged. She is being continued on oral diuretics and had been tolerating with a negative fluid balance. On the day of discharge, patient was awake and alert. She was very eager to go home. She was able to address more of her own activities of daily living. She did have a La catheter during the hospital stay but this was removed prior to discharge and she was able to urinate okay. Her lungs were clear although decreased at bases. Cardiovascular sounds were distant but regular. I discussed the case with her primary care provider Dr. Lara prior to discharge. Physical Exam Urinary Catheter Management^: La: Cath Placed During This Visit: yes, but has since been removed by the nurse Reason for Continuing Indwelling Catheter: Decision to DC Catheter Urinary Catheter Date of Insertion: 07/27/19 Urinary Catheter Time of Insertion: 18:40 Date Urinary Catheter Removed: 08/04/19 Time Urinary Catheter Discontinued: 08:42 Discharge Data Data Completed and Pending: Completed Studies During Hospitalization Category Date Time Status CT chest abd pel w con* Routine Cat Scan 07/31/19 19:[address] head wo con* 7 0450 Routine Cat Scan 07/29/19 11:46 Completed XR chest 1V quirino ble 73063 Routine Exams 07/28/19 06:00 Completed XR chest 1V quirino ble [id number] Routine Exams 07/30/19 06:00 Completed XR chest 1V quirino ble [id number] Urgent Exams 07/27/19 12:45 Completed MR head wo con* 7 0551 Routine MRI 08/02/19 13:00 Completed US abdomen limite d 53883 Routine Ultrasound 07/30/19 09:28 Completed US abdomen limite d [id number] Routine Ultrasound 07/30/19 17:52 Completed Pending at discharge Category Date Time Status Arterial Blood Ga s W/O Coox Routine Lab 07/29/19 11:46 Ordered Sputum Culture an d Gram Stain Routi ne Lab 07/27/19 18:25 Uncollected Vitals: Last Vital Signs Temp 98.3 F 08/06/19 11:23 Pulse 82 08/06/19 15:23 Resp 16 08/06/19 15:19 BP 104/60 08/06/19 11:23 Pulse Ox 92 08/06/19 15:19 Discharge Plan Discharge Patient Disposition: Home Health Service Condition: Stable Prescriptions: New furosemide 40 mg Tablet 40 mg PO DAILY@0800 Qty: 30 RF: 0 potassium chloride 20 mEq tablet extended release 20 meq PO DAILY Qty: 30 RF: 0 Continued polysaccharide iron complex [Ferrex 150] 150 mg iron Capsule 150 mg PO DAILY Qty: 30 RF: 0 pantoprazole 40 mg Tablet,Delayed Release (Dr/Ec) 40 mg PO BID Qty: 60 RF: 0 albuterol sulfate 90 mcg/actuation HFA aerosol inhaler 1 puff INHALATION Q6H PRN (Reason: Shortness Of Breath) RF: 0 Vitamin C 500 mg Tablet 500 mg PO DAILY RF: 0 Discontinued furosemide [Lasix] 20 mg tablet 20 mg PO QAM Qty: 30 RF: 0 Discharge Orders: Discharge Order (Routine); Ordered 08/06/19 Ordered By: Sabine Hawley Other Ambulatory Orders: Basic Metabolic Panel (Routine) Timeframe: 1 Week Facility[place] [facility] [place] Lab - Main Lab Ordered By: Sabine Hawley Complete Blood Count w/Auto (Routine) Timeframe: 1 Week Location: Determined by Patient Ordered By: Sabine Hawley DME: Commode (Order) Location: None Selected Ordered By: Sabine Hawley DME: Oxygen (Order) Location: None Selected Ordered By: Sabine Hawley Pulmonary Function Screen with Bronchodilator (Routine) Timeframe: 1 Month Facility[place] [facility] [place]: Respiratory Therapy Ordered By: Sabine Hawley Sleep Study/Titration (Routine) Timeframe: 1 Month Location: None Selected Ordered By: Sabine Hawley Referrals: [facility] [Outside] (All supplies have been taken care of.) [facility] [place] [facility] [place] [Outside] (Homecare has been called and will resume care.) Estuardo Lara MD [Primary Care Provider] - 2 weeks (You have an appointment with Dr. Lara on August 19 at 9:45am) Pati Burentt MD [Physician] - 08/10/19 1:00 pm () Discharge Diet: Cardiac and Low Salt Discharge Activity: Increase activity as tolerated Patient Instructions: Furosemide (By mouth), Potassium Chloride (By mouth), Pneumonia (DC) Activity Restrictions/Additional Instructions: Use oxygen and Trilogy as directed. YOU NEED THE TRILOGY to help your lungs exchange oxygen and carbon dioxide better. Regular use should help you feel a bit better and have more energy, as we saw in the hospital. You should increase the amount of time you wear the mask/use machine until you are using it throughout sleep. 2 L fluid restriction per day, lasix dose has been increased Physical therapy has been ordered along with shelter to help monitor volume status, medication management and for education as needed. Additionally will order nurses aide. I spoke with Dr Lara prior to discharge as well. Discharge Date/Time: 08/06/19 16:55 Discharge Attestations Time Spent in Discharge Care*: greater than 30 min Specific Discharge Activities: Specific discharge activities: educating patient, educating and/or supporting family/caregiver, discussing with pcp/other providers, discussing with lead case manager/social workers/dc planners, documenting/other paperwork and evaluating patient/reviewing data Quality Metrics Clinical Quality Measures During this hospital stay, did patient experience: None Coding Level of Care Code Acute Horticultural Manager for Chg Fwd Diagnoses Acute respiratory failure J96.01; J96.02 Respiratory failure complication: hypoxia and hypercapnia Acute encephalopathy G93.40 Pneumonia J18.9 Congestive heart failure I50.33 Heart failure chronicity: acute on chronic Heart failure type: diastolic Microcytic anemia D50.9 Morbid obesity E66.01 Large hiatal hernia K44.9
== END 2019-08-06 16:55 | disposition home health service (06) | DRG 189 ==
LOC: ER 15:00 → MEDSURG 07-28 13:15 → ICU 07-30 09:52 → MEDSURG 07-31 21:20
PROVIDERS: Emergency Medicine; Admitting Provider Internal Medicine; PCP Family Medicine; Visit Provider Hospitalist
DX: J96.01 Acute respiratory failure with hypoxia (principal); J69.0 Pneumonitis due to inhalation of food and vomit; I50.33 Acute on chronic diastolic (congestive) heart failure; Z68.43 Body mass index [BMI] 50.0-59.9, adult; E87.2 Acidosis; G93.40 Encephalopathy, unspecified; E66.2 Morbid (severe) obesity with alveolar hypoventilation; I24.8 Other forms of acute ischemic heart disease; J96.02 Acute respiratory failure with hypercapnia; K44.9 Diaphragmatic hernia without obstruction or gangrene; D50.9 Iron deficiency anemia, unspecified; Z20.828 Contact with and (suspected) exposure to other viral communicable diseases
CPT/HCPCS: 12345; 36415; 36600; 51702; 70450; 70551; 71045; 71260; 74177; 76705; 80051; 80053; 80202; 81001; 81003; 82140; 82274; 82803; 82805; 82810; 83540; 83550; 83735; 83880; 83986; 84100; 84443; 84484; 85025; 85610; 86403; 87040; 87086; 87449; 87635; 87641; 87804; 93005; 94002; 94010; 94640; 94660; 94762; 96372; 96375; 97110; 97116; 97162; 97166; 97530; 97535; 99282; C9113; J1644; J1756; J1940; J2543; J3370; J7040; J7050; Q9967

== ENCOUNTER 2019-09-03 11:05 | Outpatient (CLI) | payer MEDICARE, OTHER, SELFPAY ==
--- NOTE | 2019-09-03 13:04 | PFTS_ITS ---
Date of Study:09/03/19 Date of Dictation: MECHANICS: Forced vital capacity (FVC) is reduced. Forced expiratory volume in one second (FEV1) is normal. FEV1/FVC is normal. FLOW VOLUME LOOP: Narrow, there is no peak flow with forced expiratory maneuver. LUNG VOLUMES: Total lung capacity (TLC) is elevated. Residual volume (RV) is elevated. DIFFUSING CAPACITY FOR CARBON MONOXIDE: Normal. INTERPRETATION: The pulmonary function tests are consistent with nonspecific ventilatory limitation. The spirometry is consistent with mild restriction however the total lung capacity is elevated. Residual volume is also elevated. Gas exchange (DLCO) is normal. MTDD
== END 2019-09-03 11:06 | disposition home or self-care (01) ==
LOC: RT 11:09
PROVIDERS: PCP Family Medicine; Visit Provider Internal Medicine Critical Care Medicine
DX: J98.4 Other disorders of lung (principal)
CPT/HCPCS: 94010; 94726; 94729

== ENCOUNTER 2020-10-26 12:41 | Outpatient (CLI) | payer MEDICARE, OTHER, SELFPAY ==
[2020-10-26 13:00] VITALS: BP 126/68; PULSE 73; RESP 16; TEMP 37.4; O2SAT 98; BMI 46.2
[2020-10-26 13:45] VITALS: BP 116/57; PULSE 68; RESP 18; O2SAT 97
[2020-10-26 14:45] VITALS: BP 132/65; PULSE 62; RESP 14; TEMP 37.4; O2SAT 95
== END 2020-10-26 12:42 | disposition home or self-care (01) ==
PROVIDERS: PCP Family Medicine; Visit Provider Nurse Practitioner
DX: U07.1 COVID-19 (principal)
CPT/HCPCS: 96365

== ENCOUNTER 2020-12-08 12:59 | Outpatient (CLI) | payer MEDICARE, OTHER, SELFPAY ==
[2020-12-08] MEDS: ferric carboxy (IVPB) 750 MG in sodium chloride 0.9% (100 ml) 100 ML 460 MG IV (13:20)
[2020-12-08 13:25] VITALS: BP 118/84; PULSE 84; RESP 20; TEMP 36.7; O2SAT 98
--- NOTE | 2021-01-10 07:43 | PC.NURSE ---
IV iron infusion discontinued at 1340 by Triny Bowman RN
== END 2020-12-08 13:00 | disposition home or self-care (01) ==
LOC: ONCMED 13:03
PROVIDERS: PCP Family Medicine; Referring Provider Family Medicine; Visit Provider Family Medicine
DX: D50.9 Iron deficiency anemia, unspecified (principal)
CPT/HCPCS: 96365; J1439

== ENCOUNTER 2020-12-15 14:25 | Outpatient (CLI) | payer MEDICARE, OTHER, SELFPAY ==
[2020-12-15] MEDS: ferric carboxy (IVPB) 750 MG in sodium chloride 0.9% (100 ml) 100 ML 345 MG IV (15:00)
--- NOTE | 2020-12-15 15:47 | PC.NURSE ---
Patient came into the suite for the second dose of Injectafer 750mg IV . IV started in the left ac space with #22 intracath with alcohol x 3 obtaining good blood return. IV set per pump at 400ml/hr She tolerated it well with no issues or discomfort. IV discontinued with the site covered with guaze and coban. she left the suite ambulatory with walker to go home with son. B/P 132/52 pulse 65 resp 18 temp 97.8 %
--- NOTE | 2021-01-10 07:42 | PC.NURSE ---
IV iron infusion discontinued at 1504 by Triny Bowman RN.
== END 2020-12-15 14:26 | disposition home or self-care (01) ==
PROVIDERS: PCP Family Medicine; Visit Provider Internal Medicine Medical Oncology
DX: D50.9 Iron deficiency anemia, unspecified (principal)
CPT/HCPCS: 96365; J1439